=== PATIENT | male | born 1955 | race Caucasian/White ===

== ENCOUNTER 2017-07-26 18:44 | Emergency (ER) | payer MEDICARE, OTHER ==
[~2017-07-26] VITALS: Ht 180.3 cm; Wt 70.3 kg
[~2017-07-26 18:44] MED LIST: ACET-704 PO; ACET325T9 PO; ASPI-630 PO; BACL10TA PO; CHOL10003 PO; DICY10CA53 PO; FERR-26 PO; FLUD0.1T PO; FLUO40CA9 PO; KETO120S TP; LEVO25TA4 PO; MELA3TAB2 PO; MENT118G TP; PANT40TA3 PO; PREG75CA PO; THIA100T22 PO; TRAZ150T49 PO
[2017-07-26] MEDS ORDERED: IV NORMAL SALINE 1000ML BAG 1,000 ML IV SCH (19:26)
--- NOTE | 2017-07-26 19:26 | PHYS DOC ---
Past Medical History Past Medical History: Depression, Diverticulitis, Hypertension, IBS, Other Additional Past Medical Histor: TBI, irritable bowel syndrome, parkinsons Past Surgical History: Cholecystectomy, Other Additional Past Surgical Histo: "Several hernia" umbilical surgeries,back surgery. Alcohol Use: None Drug Use: None Adult General Chief Complaint Chief Complaint: ABDOMINAL PAIN HPI HPI Patient is a 62 year old male who presents with complaint of abdominal pain. Patient states that his pain is been worsening over the past 2 days. The patient states he has had similar pain and was hospitalized approximately 1 month ago for similar symptoms. Patient states that despite GI consultation, the source of the patient's pain was never clearly defined. The patient has been taking hydrocodone for his symptoms with no significant relief. Patient has not followed up with GI since discharge. The patient states that the pain is mainly in his left lower quadrant. Patient also states that he has epigastric pain that radiates up towards his chest but states that this is mild in comparison to his lower abdominal pain. Patient states that this was similar to his previous episode. Patient was evaluated by cardiology at his previous stay and his symptoms were determined to be noncardiac at that time. Patient has had no nausea or vomiting but does admit to diarrhea. Patient rates his pain currently as 8 out of 10. Review of Systems Review of Systems Constitutional: Denies fever or chills [] Eyes: Denies change in visual acuity, redness, or eye pain [] HENT: Denies nasal congestion or sore throat [] Respiratory: Denies cough or shortness of breath [] Cardiovascular: Burning chest pain[] GI: Abdominal pain, diarrhea, denies nausea or vomiting[] : Denies dysuria or hematuria [] Musculoskeletal: Denies back pain or joint pain [] Integument: Denies rash or skin lesions [] Neurologic: Denies headache, focal weakness or sensory changes [] All other systems were reviewed and found to be within normal limits, except as documented in this note. Current Medications Current Medications Current Medications Medications (Trade) Dose Ordered Sig/Darci Start Time Stop Time Status Last Admin Dose Admin Famotidine (Pepcid Vial) 20 mg 1X ONCE 07/26/17 19:30 07/26/17 19:36 DC 07/26/17 20:09 20 MG Fentanyl Citrate (Fentanyl 2ml Vial) 50 mcg PRN Q15MIN PRN 07/26/17 19:30 07/27/17 19:29 07/26/17 20:10 50 MCG Multi-Ingredient Mouthwash/Gargle (Gi Cocktail Single Dose) 15 ml 1X ONCE 07/26/17 19:30 07/26/17 19:36 DC 07/26/17 20:10 15 ML Ondansetron HCl (Zofran) 4 mg 1X ONCE 07/26/17 19:30 07/26/17 19:36 DC 07/26/17 20:09 4 MG Sodium Chloride 1,000 ml @ 1,000 mls/hr Q1H 07/26/17 19:26 07/26/17 20:25 DC 07/26/17 20:11 1,000 MLS/HR Allergies Allergies Allergies Coded Allergies Type Severity Reaction Last Updated Verified gabapentin Allergy Intermediate Unknown. 07/26/17 Yes ibuprofen Allergy Intermediate Unknown. 07/26/17 Yes Physical Exam Physical Exam Constitutional: Alert, afebrile, vital signs stable, appears in mild to moderate discomfort. [] HENT: Normocephalic, atraumatic, bilateral external ears normal, oropharynx moist, no oral exudates, nose normal. [] Eyes: PERRLA, EOMI, conjunctiva normal, no discharge. [] Neck: Normal range of motion, no tenderness, supple, no stridor. [] Cardiovascular:Heart rate regular rhythm, no murmur [] Lungs & Thorax: Bilateral breath sounds clear to auscultation [] Abdomen: Bowel sounds normal, soft, diffusely tender in all 4 quadrants, no masses, no pulsatile masses. [] Skin: Warm, dry, no erythema, no rash. [] Back: No tenderness, no CVA tenderness. [] Extremities: No tenderness, no cyanosis, no clubbing, ROM intact, no edema. [] Neurologic: Alert and oriented X 3, normal motor function, normal sensory function, no focal deficits noted. [] Current Patient Data Vital Signs Vital Signs Date Time Temp Pulse Resp B/P (MAP) Pulse Ox O2 Delivery O2 Flow Rate FiO2 07/26/17 20:10 20 97 Room Air 07/26/17 18:45 99.2 52 152/86 (108) 99.2 Lab Values Laboratory Tests Test 07/26/17 18:54 White Blood Count 5.0 x10^3/uL (4.0-11.0) Red Blood Count 5.42 x10^6/uL (4.30-5.70) Hemoglobin 11.1 g/dL (13.0-17.5) L Hematocrit 35.2 % (39.0-53.0) L Mean Corpuscular Volume 65 fL (79-100) L Mean Corpuscular Hemoglobin 21 pg (25-35) L Mean Corpuscular Hemoglobin Concent 32 g/dL (31-37) Red Cell Distribution Width 16.6 % (11.5-14.5) H Platelet Count 145 x10^3/uL (140-400) Neutrophils (%) (Auto) 48 % (31-73) Lymphocytes (%) (Auto) 36 % (24-48) Monocytes (%) (Auto) 9 % (0-9) Eosinophils (%) (Auto) 6 % (0-3) H Basophils (%) (Auto) 1 % (0-3) Neutrophils # (Auto) 2.4 x10^3uL (1.8-7.7) Lymphocytes # (Auto) 1.8 x10^3/uL (1.0-4.8) Monocytes # (Auto) 0.5 x10^3/uL (0.0-1.1) Eosinophils # (Auto) 0.3 x10^3/uL (0.0-0.7) Basophils # (Auto) 0.1 x10^3/uL (0.0-0.2) Platelet Estimate Adequate (ADEQUATE) Hypochromasia Mod Microcytosis Marked Target Cells Few Sodium Level 142 mmol/L (136-145) Potassium Level 4.1 mmol/L (3.5-5.1) Chloride Level 104 mmol/L (98-107) Carbon Dioxide Level 29 mmol/L (21-32) Anion Gap 9 (6-14) Blood Urea Nitrogen 19 mg/dL (8-26) Creatinine 0.9 mg/dL (0.7-1.3) Estimated GFR (Cockcroft-Gault) 86.1 BUN/Creatinine Ratio 21 (6-20) H Glucose Level 93 mg/dL (70-99) Calcium Level 8.1 mg/dL (8.5-10.1) L Total Bilirubin 0.3 mg/dL (0.2-1.0) Aspartate Amino Transferase (AST) 24 U/L (15-37) Alanine Aminotransferase (ALT) 22 U/L (16-63) Alkaline Phosphatase 60 U/L (46-116) Creatine Kinase 32 U/L (39-308) L Creatine Kinase MB (Mass) < 0.5 ng/mL (0.0-3.6) Creatine Kinase MB Relative Index % (0-4) Troponin I Quantitative < 0.017 ng/mL (0.000-0.055) Total Protein 6.5 g/dL (6.4-8.2) Albumin 3.5 g/dL (3.4-5.0) Albumin/Globulin Ratio 1.2 (1.0-1.7) Lipase 599 U/L (73-393) H Laboratory Tests 07/26/17 18:54 Laboratory Tests 07/26/17 18:54 EKG EKG Interpreted by me: Heart rate 49, sinus rhythm, normal intervals, no acute ST/T- wave abnormalities present[] Radiology/Procedures Radiology/Procedures 3 view acute abdominal series interpreted by me: Nonobstructive bowel gas pattern, no free air under the diaphragm, no pulmonary rates or effusions[] Course & Med Decision Making Course & Med Decision Making Pertinent Labs and Imaging studies reviewed. (See chart for details) Patient's blood work showed a mild elevation in his lipase levels consistent with pancreatitis. Patient states he's had a history of pancreatitis. The patient states that he has not had alcohol in 20 years which is in conflict with previous reports from his previous visit were alcohol was noted to be a contributing factor to the patient's health. Patient's vital signs are stable and patient is in no acute distress. Patient is tolerating oral intake without difficulty. The [facility] Percocet and Zofran. Advise follow-up with primary doctor in the next 5 days for reevaluation. Patient also referred to Dr. Mary for follow-up in one to 2 weeks. Advised return emergency department for any worsening symptoms. Patient voiced understanding and in agreement with treatment plan. Dragon Disclaimer Dragon Disclaimer This electronic medical record was generated, in whole or in part, using a voice recognition dictation system. Departure Departure Impression: Primary Impression: Pancreatitis Disposition: 01 HOME, SELF-CARE Condition: IMPROVED Referrals: MARISA MOODY (PCP) DEBO MARY MD Patient Instructions: Acute Pancreatitis Additional Instructions: Follow-up with your primary doctor in 5 days for reevaluation. Follow-up with Dr. Mary of gastroenterology in 1-2 weeks. Return to the emergency department for any worsening symptoms. Scripts Ondansetron (ZOFRAN ODT) 4 Mg Tab.rapdis 1 TAB SL Q6-8HRS Y for NAUSEA/VOMITING, #15 TAB Prov: DU MARTINEZ MD 07/26/17 Oxycodone/Apap 5-325 (PERCOCET 5-325 MG TABLET) 1 Each Tablet 1-2 TAB PO Q4-6HRS Y for PAIN, #20 TAB Discontinue use of hydrocodone while taking this medication as the 2 medications may interact. Prov: DU MARTINEZ MD 07/26/17 Problem Qualifiers Primary Impression: Pancreatitis Chronicity: acute Pancreatitis type: unspecified pancreatitis type Acute pancreatitis complication: no infection or necrosis Qualified Codes: K85.90 - Acute pancreatitis without necrosis or infection, unspecified DU MARTINEZ MD Jul 26, 2017 19:26
[2017-07-26] MEDS ORDERED: FAMOTIDINE 20 MG/2 ML VIAL IVP ONE (19:30)
[2017-07-26] MEDS ORDERED: ONDANSETRON PF 4 MG/2 ML VIAL. IV ONE (19:30)
[2017-07-26] MEDS ORDERED: LIDO:MAALOX:DONNATAL 1:1:1 15 ML SINGLE DOSE SWSW ONE (19:30)
--- NOTE | 2017-07-26 19:50 | EKG ---
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
[2017-07-26 19:52] LABS: BASO # 0.1 x10^3/uL (0.0-0.2); BASO % 1 % (0-3); EOS % 6 % (0-3); HEMATOCRIT 35.2 % (39.0-53.0); HEMOGLOBIN 11.1 g/dL (13.0-17.5); LYMPH # 1.8 x10^3/uL (1.0-4.8); LYMPH % 36 % (24-48); MEAN CORPUSCULAR HEMOGLOBIN 21 pg (25-35); MEAN CORPUSCULAR HGB CONC 32 g/dL (31-37); MEAN CORPUSCULAR VOLUME 65 fL (79-100); MONO % 9 % (0-9); NEUT % 48 % (31-73); PLATELET COUNT 145 x10^3/uL (140-400); RED BLOOD COUNT 5.42 x10^6/uL (4.30-5.70); RED CELL DISTRIBUTION WIDTH 16.6 % (11.5-14.5)
[2017-07-26] MEDS: fentaNYL PF VIAL 100 MCG/2 ML VIAL IV PRN ×2 (20:10→21:28)
[2017-07-26 20:29] LABS: HYPOCHROMIA MOD; MICROCYTOSIS MARKED; PLT ESTIMATE ADEQUATE (ADEQUATE); TARGET CELLS FEW
[2017-07-26 20:38] LABS: CREATINE KINASE 32 U/L (39-308)
[2017-07-26 20:39] LABS: CKMB MASS < 0.5 ng/mL (0.0-3.6)
[2017-07-26 20:46] LABS: CALCIUM 8.1 mg/dL (8.5-10.1); CREATININE 0.9 mg/dL (0.7-1.3); GFR 86.1; POTASSIUM 4.1 mmol/L (3.5-5.1)
[2017-07-26 20:53] LABS: ALBUMIN 3.5 g/dL (3.4-5.0); ALBUMIN/GLOBULIN RATIO 1.2 (1.0-1.7); TOTAL BILIRUBIN 0.3 mg/dL (0.2-1.0); TOTAL PROTEIN 6.5 g/dL (6.4-8.2)
[2017-07-26] MEDS ORDERED: OXYC-323 PO (21:17)
[2017-07-26] MEDS ORDERED: ONDA4TAB10 SL (21:17)
[2017-07-26 21:30] VITALS: BP 170/74
--- NOTE | 2017-07-27 07:15 | RAD ---
Indication: Left lower quadrant pain radiating to the right abdomen. Time of exam 1951 hours. No free air is identified. There are surgical clips in the right upper quadrant. The bowel gas pattern is nonobstructed. No pathologic calcifications are seen. There are postop changes in the lower lumbar spine. The lungs appear to be clear. No effusion or pneumothorax is seen. Impression: No acute abnormality is detected.
== END 2017-07-26 22:20 | disposition home or self-care (01) ==
LOC: ER 18:44
DX: K85.90 Acute pancreatitis without necrosis or infection, unspecified (principal); I10 Essential (primary) hypertension; K58.0 Irritable bowel syndrome with diarrhea; G20 Parkinson's disease; Z98.890 Other specified postprocedural states; Z88.8 Allergy status to other drugs, medicaments and biological substances
CPT/HCPCS: 36415; 74022; 80053; 82553; 83690; 84484; 85025; 93005; 96361; 96374; 96375; 96376; 99285; J2405; J3010; J7030; S0028

== ENCOUNTER 2017-08-03 12:11 | Emergency (ER) | payer MEDICARE, OTHER ==
[2017-08-03 12:37] LABS: ADD MAN DIFF? NO
[2017-08-03 12:42] LABS: BASO # 0.1 x10^3/uL (0.0-0.2); BASO % 1 % (0-3); EOS % 5 % (0-3); HEMOGLOBIN 11.7 g/dL (13.0-17.5); LYMPH # 1.5 x10^3/uL (1.0-4.8); LYMPH % 24 % (24-48); MEAN CORPUSCULAR HEMOGLOBIN 20 pg (25-35); MEAN CORPUSCULAR HGB CONC 31 g/dL (31-37); MEAN CORPUSCULAR VOLUME 66 fL (79-100); MONO % 7 % (0-9); NEUT % 64 % (31-73); PLATELET COUNT 140 x10^3/uL (140-400); WHITE BLOOD COUNT 6.4 x10^3/uL (4.0-11.0)
[2017-08-03] MEDS: HALOPERIDOL LACTATE 5 MG/ML VIAL. IVP ×2 (12:50→14:41)
[2017-08-03 12:59] LABS: ANION GAP 11 (6-14); BLOOD UREA NITROGEN 23 mg/dL (8-26); BUN/CREATININE RATIO 29 (6-20); CALCIUM 8.6 mg/dL (8.5-10.1); CARBON DIOXIDE 30 mmol/L (21-32); CHLORIDE 101 mmol/L (98-107); CREATININE 0.8 mg/dL (0.7-1.3); GFR 98.6; GLUCOSE 95 mg/dL (70-99); POTASSIUM 4.3 mmol/L (3.5-5.1); SODIUM 142 mmol/L (136-145)
[2017-08-03 13:04] LABS: ALBUMIN 3.5 g/dL (3.4-5.0); ALK PHOS 66 U/L (46-116); ALT (SGPT) 18 U/L (16-63); AST (SGOT) 19 U/L (15-37); TOTAL BILIRUBIN 0.3 mg/dL (0.2-1.0); TOTAL PROTEIN 6.9 g/dL (6.4-8.2)
[2017-08-03 13:45] LABS: BILIRUBIN,URINE NEGATIVE (NEG); GLUCOSE,URINE NEGATIVE (NEG); NITRITE,URINE NEGATIVE (NEG); PROTEIN,URINE NEGATIVE (NEG-TRACE)
[2017-08-03 14:01] LABS: BACTERIA,URINE FEW /HPF (0-FEW); RBC,URINE 0 /HPF (0-2); SQUAMOUS EPITHELIAL CELL,UR FEW /LPF
[2017-08-03] MEDS: IOHEXOL 300 MG/ML 100ML VIAL. IV (14:18)
[2017-08-03 14:24] LABS: ANISOCYTOSIS SLIGHT; HYPOCHROMIA MOD; MICROCYTOSIS MOD; PLT ESTIMATE ADEQUATE (ADEQUATE); POIKILOCYTOSIS SLIGHT; POLYCHROMASIA PRESENT
[2017-08-03 14:25] LABS: OVALOCYTES PRESENT; STOMATOCYTES PRESENT
[2017-08-03] MEDS ORDERED: CONTRAST GIVEN MC (14:30)
[2017-08-03] MEDS: IV NORMAL SALINE 1000ML BAG 1,000 ML IV (14:41)
[2017-08-03] MEDS: KETOROLAC 30 MG/ML INJ. IV (15:16)
[2017-08-03] MEDS: FAMOTIDINE 20 MG/2 ML VIAL IVP (15:16)
== END 2017-08-03 15:25 | disposition home or self-care (01) ==
LOC: ER 12:11
DX: R10.30 Lower abdominal pain, unspecified (principal); R19.7 Diarrhea, unspecified; K58.0 Irritable bowel syndrome with diarrhea; G20 Parkinson's disease; I10 Essential (primary) hypertension; Z90.49 Acquired absence of other specified parts of digestive tract; Z88.6 Allergy status to analgesic agent; Z88.8 Allergy status to other drugs, medicaments and biological substances
CPT/HCPCS: 36415; 74177; 80053; 81001; 83690; 85025; 93005; 96361; 96374; 96375; 96376; 99285-25; J1630; J1885; J7030; Q9967; S0028

== ENCOUNTER 2017-08-30 12:19 | Emergency (ER) | payer MEDICARE, OTHER ==
[2017-08-30 12:41] LABS: ADD MAN DIFF? NO
[2017-08-30 12:48] LABS: BASO % 1 % (0-3); EOS # 0.2 x10^3/uL (0.0-0.7); EOS % 4 % (0-3); HEMATOCRIT 40.5 % (39.0-53.0); HEMOGLOBIN 12.4 g/dL (13.0-17.5); LYMPH # 1.6 x10^3/uL (1.0-4.8); LYMPH % 28 % (24-48); MEAN CORPUSCULAR HEMOGLOBIN 20 pg (25-35); MEAN CORPUSCULAR HGB CONC 31 g/dL (31-37); MEAN CORPUSCULAR VOLUME 66 fL (79-100); MONO # 0.4 x10^3/uL (0.0-1.1); MONO % 7 % (0-9); NEUT # 3.6 x10^3uL (1.8-7.7); NEUT % 61 % (31-73); PLATELET COUNT 179 x10^3/uL (140-400); RED BLOOD COUNT 6.16 x10^6/uL (4.30-5.70); RED CELL DISTRIBUTION WIDTH 16.6 % (11.5-14.5); WHITE BLOOD COUNT 5.9 x10^3/uL (4.0-11.0)
[2017-08-30] MEDS: PANTOPRAZOLE IV PUSH 40 MG VIAL. IVP ×2 (12:54)
[2017-08-30] MEDS: HYDROmorphone 2 MG/ML VIAL IV ×2 (12:55)
[2017-08-30] MEDS: IV NORMAL SALINE 1000ML BAG 1,000 ML IV ×2 (12:55)
[2017-08-30] MEDS: ONDANSETRON PF 4 MG/2 ML VIAL. IV ×2 (12:55)
[2017-08-30 12:57] LABS: ANION GAP 7 (6-14); BLOOD UREA NITROGEN 14 mg/dL (8-26); BUN/CREATININE RATIO 18 (6-20); CARBON DIOXIDE 32 mmol/L (21-32); CHLORIDE 102 mmol/L (98-107); CREATININE 0.8 mg/dL (0.7-1.3); GFR 98.6; GLUCOSE 90 mg/dL (70-99); POTASSIUM 4.2 mmol/L (3.5-5.1); SODIUM 141 mmol/L (136-145)
[2017-08-30 13:03] LABS: ALBUMIN 3.7 g/dL (3.4-5.0); ALBUMIN/GLOBULIN RATIO 1.1 (1.0-1.7); ALK PHOS 70 U/L (46-116); ALT (SGPT) 17 U/L (16-63); AST (SGOT) 16 U/L (15-37); LIPASE 87 U/L (73-393); TOTAL BILIRUBIN 0.4 mg/dL (0.2-1.0); TOTAL PROTEIN 7.1 g/dL (6.4-8.2)
[2017-08-30 13:08] LABS: TROPONINI < 0.017 ng/mL (0.000-0.055)
[2017-08-30 13:22] LABS: ANISOCYTOSIS SLIGHT; HYPOCHROMIA MARKED; MICROCYTOSIS MARKED; OVALOCYTES MOD; PLT ESTIMATE ADEQUATE (ADEQUATE); SPHEROCYTES OCC; TEAR DROP CELLS OCC
[2017-08-30 13:23] LABS: SCHISTOCYTES FEW
[2017-08-30] MEDS: IOHEXOL 300 MG/ML 100ML VIAL. IV ×2 (13:25)
[2017-08-30] MEDS ORDERED: CONTRAST GIVEN MC ×2 (13:30)
== END 2017-08-30 15:50 | disposition home or self-care (01) ==
LOC: ER 12:19
DX: R10.13 Epigastric pain (principal); R07.89 Other chest pain; J44.9 Chronic obstructive pulmonary disease, unspecified; F32.9 Major depressive disorder, single episode, unspecified; E11.9 Type 2 diabetes mellitus without complications; I10 Essential (primary) hypertension; K58.9 Irritable bowel syndrome, unspecified; G20 Parkinson's disease; G89.29 Other chronic pain; Z87.820 Personal history of traumatic brain injury; Z88.8 Allergy status to other drugs, medicaments and biological substances; Z88.6 Allergy status to analgesic agent; Z87.11 Personal history of peptic ulcer disease; Z90.49 Acquired absence of other specified parts of digestive tract
CPT/HCPCS: 36415; 71045; 74177; 80053; 83690; 84484; 85025; 93005; 96361; 96374; 96375; 99285-25; C9113; J1170; J2405; J7030; Q9967

== ENCOUNTER 2017-12-06 18:46 | Inpatient (IN) | payer MEDICARE, MEDICAID, OTHER ==
[2017-12-06 19:36] LABS: ADD MAN DIFF? NO
[2017-12-06 19:38] LABS: BASO % 1 % (0-3); EOS # 0.2 x10^3/uL (0.0-0.7); EOS % 3 % (0-3); HEMATOCRIT 36.4 % (39.0-53.0); HEMOGLOBIN 11.7 g/dL (13.0-17.5); LYMPH # 1.8 x10^3/uL (1.0-4.8); LYMPH % 31 % (24-48); MEAN CORPUSCULAR HEMOGLOBIN 20 pg (25-35); MEAN CORPUSCULAR HGB CONC 32 g/dL (31-37); MEAN CORPUSCULAR VOLUME 64 fL (79-100); MONO # 0.5 x10^3/uL (0.0-1.1); MONO % 9 % (0-9); NEUT # 3.3 x10^3uL (1.8-7.7); NEUT % 57 % (31-73); PLATELET COUNT 150 x10^3/uL (140-400); RED BLOOD COUNT 5.74 x10^6/uL (4.30-5.70); RED CELL DISTRIBUTION WIDTH 16.3 % (11.5-14.5); WHITE BLOOD COUNT 5.8 x10^3/uL (4.0-11.0)
[2017-12-06] MEDS: fentaNYL PF VIAL 100 MCG/2 ML VIAL IV (19:42)
[2017-12-06 19:47] LABS: ANION GAP 7 (6-14); BLOOD UREA NITROGEN 18 mg/dL (8-26); BUN/CREATININE RATIO 20 (6-20); CALCIUM 8.9 mg/dL (8.5-10.1); CARBON DIOXIDE 31 mmol/L (21-32); CHLORIDE 103 mmol/L (98-107); CREATININE 0.9 mg/dL (0.7-1.3); GFR 86.1; GLUCOSE 99 mg/dL (70-99); INR 1.1 (0.8-1.1); POTASSIUM 4.1 mmol/L (3.5-5.1); PROTHROMBIN TIME PATIENT 13.9 SEC (11.7-14.0); SODIUM 141 mmol/L (136-145)
[2017-12-06 19:53] LABS: ALBUMIN 3.5 g/dL (3.4-5.0); ALK PHOS 72 U/L (46-116); ALT (SGPT) 18 U/L (16-63); AST (SGOT) 17 U/L (15-37); TOTAL BILIRUBIN 0.5 mg/dL (0.2-1.0)
[2017-12-06 19:59] LABS: NT-PRO BNP 91 pg/mL (0-124)
[2017-12-06] MEDS: HYDROcodone/APAP 5/325MG 1 TAB TABLET PO (20:23)
[2017-12-06 20:28] LABS: ANISOCYTOSIS SLIGHT; HYPOCHROMIA MARKED; MICROCYTOSIS MARKED; PLT ESTIMATE ADEQUATE (ADEQUATE); POIKILOCYTOSIS SLIGHT
[2017-12-06 20:29] LABS: OVALOCYTES FEW; SCHISTOCYTES FEW; TEAR DROP CELLS OCC
[2017-12-07] MEDS: fentaNYL PF VIAL 100 MCG/2 ML VIAL IV ×6 (00:15→11:23)
[2017-12-07 01:44] LABS: TROPONINI < 0.017 ng/mL (0.000-0.055)
[2017-12-07] MEDS ORDERED: ONDANSETRON ODT 4 MG TAB.RAPDIS. PO ×2 (10:00→12:45)
[2017-12-07 10:01] LABS: THYROID STIM HORMONE (TSH) 1.212 uIU/mL (0.358-3.74)
[2017-12-07 10:46] LABS: TROPONINI < 0.017 ng/mL (0.000-0.055)
[2017-12-07] MEDS: ONDANSETRON PF 4 MG/2 ML VIAL. IV (11:23)
[2017-12-07] MEDS: ACETAMINOPHEN 500 MG TABLET PO (11:27)
[2017-12-07] MEDS: ASPIRIN ENTERIC COATED 81 MG TABLET.DR. PO (11:27)
[2017-12-07] MEDS ORDERED: ACETAMINOPHEN 325 MG TABLET. PO (12:45)
[2017-12-07] MEDS ORDERED: NITROGLYCERIN SUBLINGUAL 0.4 MG BOTTLE OF 25. SL (12:45)
[2017-12-07] MEDS: ASPIRIN CHEWABLE 81 MG TABLET. PO (14:00)
[2017-12-07] MEDS: KETOCONAZOLE 2% SHAMPOO 120ML BOTTLE. TP (14:00)
[2017-12-07] MEDS: GADOBUTROL 7.5 MMOL/7.5 ML VIAL IV (14:15)
[2017-12-07] MEDS: DICYCLOMINE HCL 10 MG CAPSULE PO ×2 (14:39→20:48)
[2017-12-07] MEDS: THIAMINE 100 MG TABLET. PO (14:39)
[2017-12-07] MEDS: FLUDROCORTISONE 0.1 MG TABLET PO (14:39)
[2017-12-07] MEDS: CHOLECALCIFEROL (VITAMIN D3) 1,000 UNIT TABLET PO (14:39)
[2017-12-07] MEDS: FLUoxetine HCL 20 MG CAPSULE PO (14:40)
[2017-12-07] MEDS: BACLOFEN 10 MG TABLET. PO ×2 (14:43→20:47)
[2017-12-07] MEDS: oxyCODONE/APAP 5/325 1 TAB TABLET PO ×2 (14:46→20:47)
[2017-12-07] MEDS: PANTOPRAZOLE 40 MG TABLET.DR. PO (16:36)
[2017-12-07 20:10] LABS: MRSA BY PCR Negative (Negative)
[2017-12-07] MEDS: ATORVASTATIN CALCIUM 10 MG TABLET. PO (20:47)
[2017-12-07] MEDS: PREGABALIN 75 MG CAPSULE PO (20:47)
[2017-12-07] MEDS: traZODone 50 MG TABLET. PO (20:48)
[2017-12-07] MEDS: METHYL SALICYLATE/MENTHOL TOPICAL OINTMENT 29GM TUBE. TP (20:51)
[2017-12-07] MEDS: FLUPHENAZINE 2.5 MG PO (20:54)
[2017-12-07] MEDS ORDERED: NON FORMULARY ITEM (Melatonin 5 MG) PO (21:00)
[2017-12-07] MEDS ORDERED: FLUPHENAZINE PO (21:00)
[2017-12-07] MEDS ORDERED: FLUPHENAZINE 2.5 MG PO (21:00)
[2017-12-07] MEDS ORDERED: FLUPHENAZINE HCL 2.5 MG TABLET. PO (21:00)
[2017-12-08] MEDS: oxyCODONE/APAP 5/325 1 TAB TABLET PO (04:53)
[2017-12-08] MEDS: fentaNYL PF VIAL 100 MCG/2 ML VIAL IV ×5 (05:46→20:29)
[2017-12-08] MEDS: ASPIRIN CHEWABLE 81 MG TABLET. PO (09:00)
[2017-12-08] MEDS: METHYL SALICYLATE/MENTHOL TOPICAL OINTMENT 29GM TUBE. TP ×4 (09:00→20:32)
[2017-12-08] MEDS ORDERED: FLUPHENAZINE HCL 2.5 MG TABLET. PO ×2 (09:00)
[2017-12-08] MEDS: KETOCONAZOLE 2% SHAMPOO 120ML BOTTLE. TP (09:00)
[2017-12-08] MEDS: FLUoxetine HCL 20 MG CAPSULE PO (10:22)
[2017-12-08] MEDS: FLUDROCORTISONE 0.1 MG TABLET PO (10:22)
[2017-12-08] MEDS: ASPIRIN ENTERIC COATED 81 MG TABLET.DR. PO (10:23)
[2017-12-08] MEDS: BACLOFEN 10 MG TABLET. PO ×3 (10:23→20:31)
[2017-12-08] MEDS: PREGABALIN 75 MG CAPSULE PO ×2 (10:23→20:32)
[2017-12-08] MEDS: THIAMINE 100 MG TABLET. PO (10:23)
[2017-12-08] MEDS: LEVOTHYROXINE 25 MCG TABLET. PO (10:24)
[2017-12-08] MEDS: DICYCLOMINE HCL 10 MG CAPSULE PO ×3 (10:24→20:31)
[2017-12-08] MEDS: PANTOPRAZOLE 40 MG TABLET.DR. PO (10:24)
[2017-12-08] MEDS: FERROUS SULFATE 325 MG TABLET. PO (10:24)
[2017-12-08] MEDS: CHOLECALCIFEROL (VITAMIN D3) 1,000 UNIT TABLET PO (10:24)
[2017-12-08] MEDS: FLUPHENAZINE 2.5 MG PO ×2 (11:56→20:31)
[2017-12-08 14:09] LABS: ANION GAP 6 (6-14); BLOOD UREA NITROGEN 23 mg/dL (8-26); CALCIUM 8.9 mg/dL (8.5-10.1); CARBON DIOXIDE 32 mmol/L (21-32); CHLORIDE 101 mmol/L (98-107); GFR 76.2; GLUCOSE 171 mg/dL (70-99); POTASSIUM 4.2 mmol/L (3.5-5.1); SODIUM 139 mmol/L (136-145)
[2017-12-08 14:18] LABS: TROPONINI < 0.017 ng/mL (0.000-0.055)
[2017-12-08] MEDS: traZODone 50 MG TABLET. PO (20:31)
[2017-12-08] MEDS: ATORVASTATIN CALCIUM 10 MG TABLET. PO (20:32)
[2017-12-09] MEDS: fentaNYL PF VIAL 100 MCG/2 ML VIAL IV ×4 (04:44→20:49)
[2017-12-09] MEDS: LEVOTHYROXINE 25 MCG TABLET. PO (07:20)
[2017-12-09] MEDS: FLUDROCORTISONE 0.1 MG TABLET PO (08:16)
[2017-12-09] MEDS: CHOLECALCIFEROL (VITAMIN D3) 1,000 UNIT TABLET PO (08:17)
[2017-12-09] MEDS: DICYCLOMINE HCL 10 MG CAPSULE PO ×3 (08:17→20:22)
[2017-12-09] MEDS: FLUoxetine HCL 20 MG CAPSULE PO (08:17)
[2017-12-09] MEDS: ASPIRIN ENTERIC COATED 81 MG TABLET.DR. PO (08:17)
[2017-12-09] MEDS: PANTOPRAZOLE 40 MG TABLET.DR. PO (08:17)
[2017-12-09] MEDS: BACLOFEN 10 MG TABLET. PO ×3 (08:17→20:22)
[2017-12-09] MEDS: FERROUS SULFATE 325 MG TABLET. PO (08:17)
[2017-12-09] MEDS: THIAMINE 100 MG TABLET. PO (08:17)
[2017-12-09] MEDS: PREGABALIN 75 MG CAPSULE PO ×2 (08:18→20:21)
[2017-12-09] MEDS: oxyCODONE/APAP 5/325 1 TAB TABLET PO ×2 (08:20→20:21)
[2017-12-09] MEDS: METHYL SALICYLATE/MENTHOL TOPICAL OINTMENT 29GM TUBE. TP ×2 (08:21→20:51)
[2017-12-09] MEDS: FLUPHENAZINE 2.5 MG PO ×2 (08:50→20:22)
[2017-12-09] MEDS ORDERED: FLUPHENAZINE HCL 2.5 MG TABLET. PO ×2 (09:00)
[2017-12-09] MEDS: KETOCONAZOLE 2% SHAMPOO 120ML BOTTLE. TP (09:00)
[2017-12-09 10:33] LABS: FREE T4 1.13 ng/dL (0.76-1.46)
[2017-12-09 11:12] LABS: % SAT IRON 22 % (15-34); IRON,SERUM 61 ug/dL (65-175)
[2017-12-09 11:26] LABS: FERRITIN 289 ng/mL (26-388)
[2017-12-09] MEDS: IOHEXOL 300 MG/ML 100ML VIAL. IV (16:45)
[2017-12-09] MEDS ORDERED: CONTRAST GIVEN MC (16:45)
[2017-12-09] MEDS: ATORVASTATIN CALCIUM 10 MG TABLET. PO (20:20)
[2017-12-09] MEDS: traZODone 50 MG TABLET. PO (20:21)
[2017-12-10] MEDS: fentaNYL PF VIAL 100 MCG/2 ML VIAL IV ×6 (01:04→21:26)
[2017-12-10] MEDS: PANTOPRAZOLE 40 MG TABLET.DR. PO (07:37)
[2017-12-10] MEDS: LEVOTHYROXINE 25 MCG TABLET. PO (07:38)
[2017-12-10] MEDS: CHOLECALCIFEROL (VITAMIN D3) 1,000 UNIT TABLET PO (08:49)
[2017-12-10] MEDS: FLUDROCORTISONE 0.1 MG TABLET PO (08:49)
[2017-12-10] MEDS: THIAMINE 100 MG TABLET. PO (08:49)
[2017-12-10] MEDS: FLUoxetine HCL 20 MG CAPSULE PO (08:49)
[2017-12-10] MEDS: FERROUS SULFATE 325 MG TABLET. PO (08:50)
[2017-12-10] MEDS: BACLOFEN 10 MG TABLET. PO ×3 (08:50→21:24)
[2017-12-10] MEDS: ASPIRIN ENTERIC COATED 81 MG TABLET.DR. PO (08:50)
[2017-12-10] MEDS: PREGABALIN 75 MG CAPSULE PO ×2 (08:51→21:25)
[2017-12-10] MEDS: DICYCLOMINE HCL 10 MG CAPSULE PO ×3 (08:51→21:23)
[2017-12-10] MEDS: oxyCODONE/APAP 5/325 1 TAB TABLET PO ×2 (08:52→21:25)
[2017-12-10] MEDS: FLUPHENAZINE 2.5 MG PO (08:54)
[2017-12-10] MEDS: METHYL SALICYLATE/MENTHOL TOPICAL OINTMENT 29GM TUBE. TP ×2 (08:59→21:00)
[2017-12-10] MEDS ORDERED: FLUPHENAZINE HCL 2.5 MG TABLET. PO (09:00)
[2017-12-10] MEDS ORDERED: tiZANidine 4 MG TABLET. PO (09:00)
[2017-12-10] MEDS: KETOCONAZOLE 2% SHAMPOO 120ML BOTTLE. TP (09:00)
[2017-12-10] MEDS: IOHEXOL 240 MG/ML 50ML VIAL. PO (09:30)
[2017-12-10] MEDS: IOHEXOL 300 MG/ML 100ML VIAL. IV (09:30)
[2017-12-10] MEDS ORDERED: CONTRAST GIVEN MC (09:45)
[2017-12-10 10:05] LABS: ADD MAN DIFF? NO
[2017-12-10 10:10] LABS: BASO % 1 % (0-3); EOS # 0.3 x10^3/uL (0.0-0.7); EOS % 5 % (0-3); HEMATOCRIT 36.3 % (39.0-53.0); HEMOGLOBIN 11.4 g/dL (13.0-17.5); LYMPH # 1.8 x10^3/uL (1.0-4.8); LYMPH % 31 % (24-48); MEAN CORPUSCULAR HEMOGLOBIN 20 pg (25-35); MEAN CORPUSCULAR HGB CONC 32 g/dL (31-37); MEAN CORPUSCULAR VOLUME 64 fL (79-100); MONO # 0.5 x10^3/uL (0.0-1.1); MONO % 9 % (0-9); NEUT # 3.2 x10^3uL (1.8-7.7); NEUT % 55 % (31-73); PLATELET COUNT 138 x10^3/uL (140-400); RED BLOOD COUNT 5.65 x10^6/uL (4.30-5.70); RED CELL DISTRIBUTION WIDTH 16.6 % (11.5-14.5); WHITE BLOOD COUNT 5.7 x10^3/uL (4.0-11.0)
[2017-12-10 11:37] LABS: SEDIMENTATION RATE 9 (0-15)
[2017-12-10] MEDS ORDERED: LIDOCAINE WITH 8.4% SOD BICARB 3 ML DISP.SYRIN. (13:51)
[2017-12-10] MEDS: LIDOCAINE WITH 8.4% SOD BICARB 3 ML DISP.SYRIN. INJ (14:00)
[2017-12-10] MEDS: traZODone 50 MG TABLET. PO (21:23)
[2017-12-10] MEDS: ATORVASTATIN CALCIUM 10 MG TABLET. PO (21:24)
[2017-12-10] MEDS: FLUPHENAZINE HCL 2.5 MG TABLET. PO (21:26)
[2017-12-11] MEDS: METHYL SALICYLATE/MENTHOL TOPICAL OINTMENT 29GM TUBE. TP ×2 (07:28→21:00)
[2017-12-11] MEDS: KETOCONAZOLE 2% SHAMPOO 120ML BOTTLE. TP (07:28)
[2017-12-11] MEDS: FLUDROCORTISONE 0.1 MG TABLET PO (08:00)
[2017-12-11] MEDS: ASPIRIN ENTERIC COATED 81 MG TABLET.DR. PO (08:00)
[2017-12-11] MEDS: FLUoxetine HCL 20 MG CAPSULE PO (08:00)
[2017-12-11] MEDS: CHOLECALCIFEROL (VITAMIN D3) 1,000 UNIT TABLET PO (08:00)
[2017-12-11] MEDS: PANTOPRAZOLE 40 MG TABLET.DR. PO (08:01)
[2017-12-11] MEDS: FLUPHENAZINE HCL 2.5 MG TABLET. PO ×2 (08:01→20:46)
[2017-12-11] MEDS: THIAMINE 100 MG TABLET. PO (08:01)
[2017-12-11] MEDS: oxyCODONE/APAP 5/325 1 TAB TABLET PO ×2 (08:01→19:35)
[2017-12-11] MEDS: PREGABALIN 75 MG CAPSULE PO ×2 (08:01→20:45)
[2017-12-11] MEDS: FERROUS SULFATE 325 MG TABLET. PO (08:01)
[2017-12-11] MEDS: LEVOTHYROXINE 25 MCG TABLET. PO (08:01)
[2017-12-11] MEDS: DICYCLOMINE HCL 10 MG CAPSULE PO ×3 (08:02→20:46)
[2017-12-11] MEDS: BACLOFEN 10 MG TABLET. PO ×3 (08:02→20:45)
[2017-12-11] MEDS: fentaNYL PF VIAL 100 MCG/2 ML VIAL IV ×3 (08:15→19:42)
[2017-12-11] MEDS: traZODone 50 MG TABLET. PO (20:44)
[2017-12-11] MEDS: ATORVASTATIN CALCIUM 10 MG TABLET. PO (20:45)
[2017-12-12] MEDS: fentaNYL PF VIAL 100 MCG/2 ML VIAL IV ×6 (01:27→22:07)
[2017-12-12] MEDS: LEVOTHYROXINE 25 MCG TABLET. PO ×2 (07:56→19:12)
[2017-12-12] MEDS: PANTOPRAZOLE 40 MG TABLET.DR. PO ×2 (07:56→19:12)
[2017-12-12] MEDS: KETOCONAZOLE 2% SHAMPOO 120ML BOTTLE. TP (09:00)
[2017-12-12] MEDS: ASPIRIN ENTERIC COATED 81 MG TABLET.DR. PO (09:27)
[2017-12-12] MEDS: FLUoxetine HCL 20 MG CAPSULE PO (09:27)
[2017-12-12] MEDS: oxyCODONE/APAP 5/325 1 TAB TABLET PO ×2 (09:27→19:49)
[2017-12-12] MEDS: FLUDROCORTISONE 0.1 MG TABLET PO (09:27)
[2017-12-12] MEDS: FERROUS SULFATE 325 MG TABLET. PO (09:27)
[2017-12-12] MEDS: THIAMINE 100 MG TABLET. PO (09:28)
[2017-12-12] MEDS: CHOLECALCIFEROL (VITAMIN D3) 1,000 UNIT TABLET PO (09:28)
[2017-12-12] MEDS: BACLOFEN 10 MG TABLET. PO ×3 (09:28→19:48)
[2017-12-12] MEDS: FLUPHENAZINE HCL 2.5 MG TABLET. PO ×2 (09:28→19:48)
[2017-12-12] MEDS: DICYCLOMINE HCL 10 MG CAPSULE PO ×3 (09:28→19:48)
[2017-12-12] MEDS: PREGABALIN 75 MG CAPSULE PO ×2 (09:28→19:48)
[2017-12-12] MEDS: METHYL SALICYLATE/MENTHOL TOPICAL OINTMENT 29GM TUBE. TP ×2 (09:29→19:49)
[2017-12-12] MEDS: ATORVASTATIN CALCIUM 10 MG TABLET. PO (19:48)
[2017-12-12] MEDS: traZODone 50 MG TABLET. PO (19:49)
[2017-12-13] MEDS: fentaNYL PF VIAL 100 MCG/2 ML VIAL IV ×7 (03:24→23:25)
[2017-12-13] MEDS ORDERED: MORPHINE SULFATE 4 MG/ML DISP.SYRIN. IV (07:00)
[2017-12-13] MEDS ORDERED: ONDANSETRON PF 4 MG/2 ML VIAL. IV (07:00)
[2017-12-13] MEDS ORDERED: LIDOCAINE 1% PF 2 ML VIAL. ID (07:00)
[2017-12-13] MEDS ORDERED: fentaNYL PF VIAL 100 MCG/2 ML VIAL IV (07:00)
[2017-12-13] MEDS: FERROUS SULFATE 325 MG TABLET. PO (08:00)
[2017-12-13] MEDS: ASPIRIN ENTERIC COATED 81 MG TABLET.DR. PO (08:00)
[2017-12-13] MEDS: FLUoxetine HCL 20 MG CAPSULE PO (09:00)
[2017-12-13] MEDS: FLUDROCORTISONE 0.1 MG TABLET PO (09:00)
[2017-12-13] MEDS: METHYL SALICYLATE/MENTHOL TOPICAL OINTMENT 29GM TUBE. TP ×2 (09:00→20:25)
[2017-12-13] MEDS: PREGABALIN 75 MG CAPSULE PO ×2 (09:00→20:21)
[2017-12-13] MEDS: CHOLECALCIFEROL (VITAMIN D3) 1,000 UNIT TABLET PO (09:00)
[2017-12-13] MEDS: KETOCONAZOLE 2% SHAMPOO 120ML BOTTLE. TP (09:00)
[2017-12-13] MEDS: BACLOFEN 10 MG TABLET. PO ×3 (09:00→20:20)
[2017-12-13] MEDS: DICYCLOMINE HCL 10 MG CAPSULE PO ×3 (09:00→20:21)
[2017-12-13] MEDS: FLUPHENAZINE HCL 2.5 MG TABLET. PO ×2 (09:00→20:21)
[2017-12-13] MEDS: THIAMINE 100 MG TABLET. PO (09:00)
[2017-12-13] MEDS ORDERED: PROPOFOL 20 ML IV (10:18)
[2017-12-13] MEDS ORDERED: FAMOTIDINE 20 MG/2 ML VIAL (10:18)
[2017-12-13] MEDS ORDERED: DEXAMETHASONE SOD PHOS 20 MG/5 ML VIAL. (10:18)
[2017-12-13] MEDS ORDERED: LIDOCAINE 2% PF Vial for OR 5 ML VIAL. (10:18)
[2017-12-13] MEDS ORDERED: ROCURONIUM 50 MG/5 ML VIAL. (10:19)
[2017-12-13] MEDS ORDERED: MIDAZOLAM HCL/PF 2 MG/2 ML VIAL. (10:19)
[2017-12-13] MEDS ORDERED: ONDANSETRON PF 4 MG/2 ML VIAL. (10:19)
[2017-12-13] MEDS ORDERED: SUCCINYLCHOLINE 200 MG/10 ML VIAL. (10:19)
[2017-12-13] MEDS ORDERED: fentaNYL PF VIAL 100 MCG/2 ML VIAL (10:19)
[2017-12-13] MEDS: IV RINGERS,LACTATED 1000ML 1,000 ML IV (11:00)
[2017-12-13] MEDS ORDERED: DESFLURANE 61 TO 120 MINUTES IH (12:10)
[2017-12-13] MEDS: PROCHLORPERAZINE 10 MG/2 ML VIAL. IV (12:55)
[2017-12-13] MEDS: traZODone 50 MG TABLET. PO (20:20)
[2017-12-13] MEDS: ATORVASTATIN CALCIUM 10 MG TABLET. PO (20:21)
[2017-12-14] MEDS: fentaNYL PF VIAL 100 MCG/2 ML VIAL IV ×3 (02:08→11:03)
[2017-12-14] MEDS: DICYCLOMINE HCL 10 MG CAPSULE PO ×2 (08:01→11:52)
[2017-12-14] MEDS: PREGABALIN 75 MG CAPSULE PO (08:01)
[2017-12-14] MEDS: FERROUS SULFATE 325 MG TABLET. PO (08:02)
[2017-12-14] MEDS: LEVOTHYROXINE 25 MCG TABLET. PO (08:02)
[2017-12-14] MEDS: BACLOFEN 10 MG TABLET. PO ×2 (08:02→11:52)
[2017-12-14] MEDS: FLUDROCORTISONE 0.1 MG TABLET PO (08:02)
[2017-12-14] MEDS: CHOLECALCIFEROL (VITAMIN D3) 1,000 UNIT TABLET PO (08:02)
[2017-12-14] MEDS: FLUoxetine HCL 20 MG CAPSULE PO (08:02)
[2017-12-14] MEDS: PANTOPRAZOLE 40 MG TABLET.DR. PO (08:02)
[2017-12-14] MEDS: FLUPHENAZINE HCL 2.5 MG TABLET. PO (08:02)
[2017-12-14] MEDS: ASPIRIN ENTERIC COATED 81 MG TABLET.DR. PO (08:02)
[2017-12-14] MEDS: THIAMINE 100 MG TABLET. PO (08:02)
[2017-12-14] MEDS: KETOCONAZOLE 2% SHAMPOO 120ML BOTTLE. TP (08:03)
[2017-12-14] MEDS: METHYL SALICYLATE/MENTHOL TOPICAL OINTMENT 29GM TUBE. TP (08:03)
== END 2017-12-14 13:30 | disposition home or self-care (01) | DRG 825 ==
LOC: ER 18:46 → 6 SOUTH 21:18
PROC: 0CTPXZZ Resection of Tonsils, External Approach (ICD-10-PCS; principal; 2017-12-13 11:15)
PROC: 0CBM8ZX Excision of Pharynx, Via Natural or Artificial Opening Endoscopic, Diagnostic (ICD-10-PCS; 2017-12-13 11:15)
PROC: 07BH3ZX Excision of Right Inguinal Lymphatic, Percutaneous Approach, Diagnostic (ICD-10-PCS; 2017-12-13 11:18)
DX: C77.0 Secondary and unspecified malignant neoplasm of lymph nodes of head, face and neck (principal); E11.51 Type 2 diabetes mellitus with diabetic peripheral angiopathy without gangrene; G20 Parkinson's disease; I27.20 Pulmonary hypertension, unspecified; R13.10 Dysphagia, unspecified; M94.0 Chondrocostal junction syndrome [Tietze]; C80.1 Malignant (primary) neoplasm, unspecified; B19.20 Unspecified viral hepatitis C without hepatic coma; D50.9 Iron deficiency anemia, unspecified; R59.9 Enlarged lymph nodes, unspecified; E03.9 Hypothyroidism, unspecified; F32.9 Major depressive disorder, single episode, unspecified; G89.29 Other chronic pain; I10 Essential (primary) hypertension; K21.9 Gastro-esophageal reflux disease without esophagitis; M19.90 Unspecified osteoarthritis, unspecified site; N20.0 Calculus of kidney; Z80.1 Family history of malignant neoplasm of trachea, bronchus and lung; Z82.49 Family history of ischemic heart disease and other diseases of the circulatory system; Z85.828 Personal history of other malignant neoplasm of skin; Z87.820 Personal history of traumatic brain injury; Z87.891 Personal history of nicotine dependence; Z90.49 Acquired absence of other specified parts of digestive tract; Z88.8 Allergy status to other drugs, medicaments and biological substances; I73.9 Peripheral vascular disease, unspecified; K57.90 Diverticulosis of intestine, part unspecified, without perforation or abscess without bleeding
CPT/HCPCS: 36415; 38505; 70491; 71045; 71260; 72156; 74177; 78306; 80048; 80053; 82728; 83540; 83550; 83735; 83880; 84439; 84443; 84481; 84484; 85025; 85379; 85610; 85651; 87641; 88184; 88185; 88305; 93005; 96374; 97161-GP; 97165-GO; 99285; 99285-25; A7015; A9503; A9585; J0330; J0690; J0780; J1100; J2250; J2405; J2704; J3010; J7120; Q9967; S0028

== ENCOUNTER 2017-12-17 09:44 | Emergency (ER) | payer MEDICARE, MEDICAID ==
[2017-12-17] MEDS: MORPHINE SULFATE 4 MG/ML DISP.SYRIN. IV ×2 (10:18→11:23)
[2017-12-17 10:30] LABS: ADD MAN DIFF? NO
[2017-12-17 10:41] LABS: BASO % 1 % (0-3); EOS # 0.2 x10^3/uL (0.0-0.7); EOS % 3 % (0-3); HEMATOCRIT 36.6 % (39.0-53.0); HEMOGLOBIN 11.5 g/dL (13.0-17.5); LYMPH # 1.1 x10^3/uL (1.0-4.8); LYMPH % 19 % (24-48); MEAN CORPUSCULAR HEMOGLOBIN 20 pg (25-35); MEAN CORPUSCULAR HGB CONC 31 g/dL (31-37); MEAN CORPUSCULAR VOLUME 64 fL (79-100); MONO # 0.5 x10^3/uL (0.0-1.1); MONO % 8 % (0-9); NEUT # 4.1 x10^3uL (1.8-7.7); NEUT % 69 % (31-73); PLATELET COUNT 169 x10^3/uL (140-400); RED BLOOD COUNT 5.74 x10^6/uL (4.30-5.70); RED CELL DISTRIBUTION WIDTH 16.2 % (11.5-14.5)
[2017-12-17 10:48] LABS: ANION GAP 8 (6-14); BLOOD UREA NITROGEN 14 mg/dL (8-26); BUN/CREATININE RATIO 18 (6-20); CARBON DIOXIDE 30 mmol/L (21-32); CHLORIDE 104 mmol/L (98-107); CREATININE 0.8 mg/dL (0.7-1.3); GFR 98.6; GLUCOSE 139 mg/dL (70-99); POTASSIUM 3.8 mmol/L (3.5-5.1); SODIUM 142 mmol/L (136-145)
[2017-12-17 10:54] LABS: ALBUMIN 3.4 g/dL (3.4-5.0); ALBUMIN/GLOBULIN RATIO 0.9 (1.0-1.7); ALK PHOS 87 U/L (46-116); ALT (SGPT) 23 U/L (16-63); AST (SGOT) 17 U/L (15-37); TOTAL BILIRUBIN 0.6 mg/dL (0.2-1.0); TOTAL PROTEIN 7.2 g/dL (6.4-8.2)
[2017-12-17 11:02] LABS: CKMB MASS < 0.5 ng/mL (0.0-3.6); CREATINE KINASE 28 U/L (39-308)
[2017-12-17 13:06] LABS: ANISOCYTOSIS SLIGHT; HYPOCHROMIA MARKED; MICROCYTOSIS MARKED; OVALOCYTES FEW; PLT ESTIMATE ADEQUATE (ADEQUATE); POLYCHROMASIA SLIGHT; TEAR DROP CELLS FEW
[2017-12-17] MEDS: ONDANSETRON ODT 4 MG TAB.RAPDIS. PO (13:25)
[2017-12-17] MEDS: fentaNYL PF VIAL 100 MCG/2 ML VIAL IV (13:27)
== END 2017-12-17 14:43 | disposition home or self-care (01) ==
LOC: ER 09:44
DX: G89.18 Other acute postprocedural pain (principal); R07.89 Other chest pain; G20 Parkinson's disease; Z90.49 Acquired absence of other specified parts of digestive tract; Z88.8 Allergy status to other drugs, medicaments and biological substances
CPT/HCPCS: 36415; 71046; 80053; 82553; 85025; 93005; 96374; 96375; 96376; 99285-25; J2270; J3010; Q0162

== ENCOUNTER 2018-02-24 20:32 | Inpatient (IN) | payer MEDICARE, MEDICAID ==
[2018-02-24 21:17] LABS: ADD MAN DIFF? NO
[2018-02-24] MEDS: ASPIRIN CHEWABLE 81 MG TABLET. PO (21:19)
[2018-02-24 21:20] LABS: BASO # 0.1 x10^3/uL (0.0-0.2); BASO % 1 % (0-3); EOS # 0.2 x10^3/uL (0.0-0.7); EOS % 5 % (0-3); HEMATOCRIT 35.8 % (39.0-53.0); HEMOGLOBIN 11.4 g/dL (13.0-17.5); LYMPH % 22 % (24-48); MEAN CORPUSCULAR HEMOGLOBIN 20 pg (25-35); MEAN CORPUSCULAR HGB CONC 32 g/dL (31-37); MEAN CORPUSCULAR VOLUME 63 fL (79-100); MONO # 0.5 x10^3/uL (0.0-1.1); MONO % 11 % (0-9); NEUT # 2.8 x10^3uL (1.8-7.7); NEUT % 62 % (31-73); PLATELET COUNT 180 x10^3/uL (140-400); RED BLOOD COUNT 5.65 x10^6/uL (4.30-5.70); RED CELL DISTRIBUTION WIDTH 18.2 % (11.5-14.5); WHITE BLOOD COUNT 4.5 x10^3/uL (4.0-11.0)
[2018-02-24 21:29] LABS: INR 1.1 (0.8-1.1); PROTHROMBIN TIME PATIENT 13.4 SEC (11.7-14.0)
[2018-02-24 21:30] LABS: ANION GAP 6 (6-14); BLOOD UREA NITROGEN 20 mg/dL (8-26); BUN/CREATININE RATIO 20 (6-20); CALCIUM 9.1 mg/dL (8.5-10.1); CARBON DIOXIDE 34 mmol/L (21-32); CHLORIDE 100 mmol/L (98-107); GFR 76.2; GLUCOSE 130 mg/dL (70-99); POTASSIUM 4.3 mmol/L (3.5-5.1); SODIUM 140 mmol/L (136-145)
[2018-02-24 21:36] LABS: ALBUMIN 3.5 g/dL (3.4-5.0); ALBUMIN/GLOBULIN RATIO 1.1 (1.0-1.7); ALK PHOS 103 U/L (46-116); ALT (SGPT) 60 U/L (16-63); AST (SGOT) 49 U/L (15-37); LIPASE 210 U/L (73-393); TOTAL BILIRUBIN 0.3 mg/dL (0.2-1.0); TOTAL PROTEIN 6.8 g/dL (6.4-8.2)
[2018-02-24 21:39] LABS: TROPONINI < 0.017 ng/mL (0.000-0.055)
[2018-02-24 21:44] LABS: NT-PRO BNP 165 pg/mL (0-124)
[2018-02-24 21:44] LABS: CKMB MASS 0.5 ng/mL (0.0-3.6); CREATINE KINASE 33 U/L (39-308)
[2018-02-24 21:51] LABS: PLT ESTIMATE ADEQUATE (ADEQUATE)
[2018-02-24] MEDS: fentaNYL PF VIAL 100 MCG/2 ML VIAL IV ×2 (21:51→22:40)
[2018-02-24 21:52] LABS: ANISOCYTOSIS SLIGHT; HYPOCHROMIA MARKED; MICROCYTOSIS MARKED; OVALOCYTES FEW; POIKILOCYTOSIS SLIGHT
[2018-02-24] MEDS ORDERED: CONTRAST GIVEN. MC (23:15)
[2018-02-24] MEDS: IOHEXOL 300 MG/ML 100ML VIAL. IV (23:27)
[2018-02-24] MEDS: LIDO:MAALOX 1:1 20 ML SINGLE DOSE. PO (23:42)
[2018-02-24] MEDS: IV NORMAL SALINE 1000ML BAG 1,000 ML IV (23:43)
[2018-02-25] MEDS ORDERED: ONDANSETRON PF 4 MG/2 ML VIAL. IV (00:30)
[2018-02-25] MEDS: MORPHINE SULFATE 4 MG/ML DISP.SYRIN. IV ×12 (00:49→22:25)
[2018-02-25 01:02] LABS: TROPONINI < 0.017 ng/mL (0.000-0.055)
[2018-02-25 01:30] LABS: BILIRUBIN,URINE NEGATIVE (NEG); CLARITY,URINE CLEAR; COLOR,URINE YELLOW; GLUCOSE,URINE NEGATIVE (NEG); NITRITE,URINE NEGATIVE (NEG); PROTEIN,URINE NEGATIVE (NEG-TRACE); UROBILINOGEN,URINE 0.2 mg/dL (0.2 mg/dL)
[2018-02-25 02:05] LABS: BACTERIA,URINE 0 /HPF (0-FEW); RBC,URINE 0 /HPF (0-2); SQUAMOUS EPITHELIAL CELL,UR OCC /LPF; WBC,URINE OCC /HPF (0-4)
[2018-02-25 08:13] LABS: TROPONINI < 0.017 ng/mL (0.000-0.055)
[2018-02-25] MEDS ORDERED: MORPHINE SULFATE 10 MG/ML VIAL. IV (14:15)
[2018-02-25] MEDS: fentaNYL 50MCG/HR PATCH 1 PATCH PATCH.TD72 TD (16:15)
[2018-02-25] MEDS: oxyCODONE/APAP 10/325 1 TAB TABLET PO (19:12)
[2018-02-25 20:15] LABS: MRSA BY PCR Positive (Negative)
[2018-02-26] MEDS: oxyCODONE/APAP 10/325 1 TAB TABLET PO ×2 (00:31→08:22)
[2018-02-26] MEDS: MORPHINE SULFATE 4 MG/ML DISP.SYRIN. IV ×4 (00:31→09:09)
[2018-02-26] MEDS: ONDANSETRON PF 4 MG/2 ML VIAL. IV (09:43)
[2018-02-26] MEDS: SUCRALFATE 1 GM/10 ML ORAL.SUSP. PO (12:08)
[2018-02-26] MEDS: MORPHINE SULFATE 10 MG/ML VIAL. IV ×2 (13:09→23:01)
[2018-02-27] MEDS ORDERED: MORPHINE SULFATE 10 MG/ML VIAL. IV ×2 (08:45→09:00)
[2018-02-27] MEDS: MORPHINE SULFATE 4 MG/ML DISP.SYRIN. IV ×4 (09:28→19:48)
[2018-02-27 10:30] LABS: ADD MAN DIFF? NO
[2018-02-27 10:42] LABS: BASO % 1 % (0-3); EOS # 0.1 x10^3/uL (0.0-0.7); EOS % 2 % (0-3); HEMOGLOBIN 12.7 g/dL (13.0-17.5); LYMPH # 0.6 x10^3/uL (1.0-4.8); LYMPH % 12 % (24-48); MEAN CORPUSCULAR HEMOGLOBIN 20 pg (25-35); MEAN CORPUSCULAR HGB CONC 32 g/dL (31-37); MEAN CORPUSCULAR VOLUME 64 fL (79-100); MONO # 0.6 x10^3/uL (0.0-1.1); MONO % 10 % (0-9); NEUT % 74 % (31-73); PLATELET COUNT 187 x10^3/uL (140-400); RED BLOOD COUNT 6.22 x10^6/uL (4.30-5.70); RED CELL DISTRIBUTION WIDTH 18.7 % (11.5-14.5); WHITE BLOOD COUNT 5.3 x10^3/uL (4.0-11.0)
[2018-02-27 11:04] LABS: ANION GAP 9 (6-14); BLOOD UREA NITROGEN 19 mg/dL (8-26); CALCIUM 9.3 mg/dL (8.5-10.1); CARBON DIOXIDE 32 mmol/L (21-32); CHLORIDE 96 mmol/L (98-107); CREATININE 0.8 mg/dL (0.7-1.3); GFR 98.6; GLUCOSE 95 mg/dL (70-99); POTASSIUM 4.3 mmol/L (3.5-5.1); SODIUM 137 mmol/L (136-145)
[2018-02-28] MEDS: MORPHINE SULFATE 4 MG/ML DISP.SYRIN. IV ×5 (00:17→14:01)
[2018-02-28 04:31] LABS: ADD MAN DIFF? NO
[2018-02-28 04:37] LABS: BASO % 0 % (0-3); EOS # 0.1 x10^3/uL (0.0-0.7); EOS % 1 % (0-3); HEMOGLOBIN 12.3 g/dL (13.0-17.5); LYMPH # 0.7 x10^3/uL (1.0-4.8); LYMPH % 12 % (24-48); MEAN CORPUSCULAR HEMOGLOBIN 21 pg (25-35); MEAN CORPUSCULAR HGB CONC 32 g/dL (31-37); MEAN CORPUSCULAR VOLUME 64 fL (79-100); MONO # 0.6 x10^3/uL (0.0-1.1); MONO % 11 % (0-9); NEUT # 4.4 x10^3uL (1.8-7.7); NEUT % 76 % (31-73); PLATELET COUNT 188 x10^3/uL (140-400); RED BLOOD COUNT 5.97 x10^6/uL (4.30-5.70); WHITE BLOOD COUNT 5.8 x10^3/uL (4.0-11.0)
[2018-02-28 05:27] LABS: ANION GAP 8 (6-14); BLOOD UREA NITROGEN 21 mg/dL (8-26); CALCIUM 9.2 mg/dL (8.5-10.1); CARBON DIOXIDE 30 mmol/L (21-32); CHLORIDE 97 mmol/L (98-107); CREATININE 0.8 mg/dL (0.7-1.3); GFR 98.6; GLUCOSE 115 mg/dL (70-99); SODIUM 135 mmol/L (136-145)
[2018-02-28] MEDS: fentaNYL 50MCG/HR PATCH 1 PATCH PATCH.TD72 TD (08:15)
[2018-02-28] MEDS ORDERED: fentaNYL 25MCG/HR PATCH 1 PATCH PATCH.TD72 TD (09:30)
[2018-02-28] MEDS ORDERED: ACETAMINOPHEN 325 MG TABLET. PO (09:30)
[2018-02-28] MEDS ORDERED: oxyCODONE/APAP 5/325 1 TAB TABLET PO ×2 (09:45→10:00)
[2018-02-28] MEDS ORDERED: NITROGLYCERIN SUBLINGUAL 0.4 MG BOTTLE OF 25. SL (09:45)
[2018-02-28] MEDS ORDERED: MORPHINE SULFATE 20 MG PO (09:45)
[2018-02-28] MEDS ORDERED: LORazepam 0.5 MG TABLET PO (09:45)
[2018-02-28] MEDS ORDERED: ONDANSETRON ODT 4 MG TAB.RAPDIS. PO (09:45)
[2018-02-28] MEDS: ASPIRIN CHEWABLE 81 MG TABLET. PO ×2 (10:00→13:50)
[2018-02-28] MEDS: POLYETHYLENE GLYCOL 3350 17 GM PACKET. PO (10:00)
[2018-02-28] MEDS: MORPHINE ER 30 MG TABLET.ER PO ×2 (13:48→21:00)
[2018-02-28] MEDS: LEVOTHYROXINE 25 MCG TABLET. PO (13:48)
[2018-02-28] MEDS: FLUDROCORTISONE 0.1 MG TABLET PO (13:48)
[2018-02-28] MEDS: PREGABALIN 75 MG CAPSULE PO ×2 (13:48→20:59)
[2018-02-28] MEDS: FLUoxetine HCL 20 MG CAPSULE PO (13:49)
[2018-02-28] MEDS: THIAMINE 100 MG TABLET. PO (13:49)
[2018-02-28] MEDS: PANTOPRAZOLE 40 MG TABLET.DR. PO (13:49)
[2018-02-28] MEDS: DICYCLOMINE HCL 10 MG CAPSULE PO ×3 (13:49→21:00)
[2018-02-28] MEDS: DULoxetine HCL 30 MG CAPSULE.DR PO (13:49)
[2018-02-28] MEDS: FERROUS SULFATE 325 MG TABLET. PO (13:49)
[2018-02-28] MEDS: CHOLECALCIFEROL (VITAMIN D3) 1,000 UNIT TABLET PO (13:49)
[2018-02-28] MEDS: BACLOFEN 10 MG TABLET. PO ×3 (13:50→20:59)
[2018-02-28] MEDS: traZODone 50 MG TABLET. PO (20:59)
[2018-02-28] MEDS: ATORVASTATIN CALCIUM 10 MG TABLET. PO (20:59)
[2018-02-28] MEDS ORDERED: MINERAL OIL TP (21:00)
[2018-02-28] MEDS ORDERED: PETROLATUM TP (21:00)
[2018-02-28] MEDS ORDERED: FLUPHENAZINE HCL 2.5 MG PO (21:00)
[2018-03-01] MEDS: LEVOTHYROXINE 25 MCG TABLET. PO (07:07)
[2018-03-01] MEDS: FERROUS SULFATE 325 MG TABLET. PO (07:42)
[2018-03-01] MEDS: PREGABALIN 75 MG CAPSULE PO (07:42)
[2018-03-01] MEDS: FLUDROCORTISONE 0.1 MG TABLET PO (07:42)
[2018-03-01] MEDS: DICYCLOMINE HCL 10 MG CAPSULE PO ×2 (07:42→14:58)
[2018-03-01] MEDS: THIAMINE 100 MG TABLET. PO (07:43)
[2018-03-01] MEDS: DULoxetine HCL 30 MG CAPSULE.DR PO (07:43)
[2018-03-01] MEDS: MORPHINE ER 30 MG TABLET.ER PO (07:43)
[2018-03-01] MEDS: BACLOFEN 10 MG TABLET. PO ×2 (07:44→14:58)
[2018-03-01] MEDS: CHOLECALCIFEROL (VITAMIN D3) 1,000 UNIT TABLET PO (07:44)
[2018-03-01] MEDS: FLUoxetine HCL 20 MG CAPSULE PO (07:44)
[2018-03-01] MEDS: PANTOPRAZOLE 40 MG TABLET.DR. PO (07:44)
[2018-03-01] MEDS: POLYETHYLENE GLYCOL 3350 17 GM PACKET. PO (07:48)
[2018-03-01] MEDS: ASPIRIN CHEWABLE 81 MG TABLET. PO (08:06)
[2018-03-01 08:54] LABS: ADD MAN DIFF? NO
[2018-03-01 09:06] LABS: ANION GAP 8 (6-14); BLOOD UREA NITROGEN 20 mg/dL (8-26); CALCIUM 9.7 mg/dL (8.5-10.1); CARBON DIOXIDE 32 mmol/L (21-32); CHLORIDE 96 mmol/L (98-107); CREATININE 1.2 mg/dL (0.7-1.3); GFR 61.8; GLUCOSE 134 mg/dL (70-99); POTASSIUM 3.5 mmol/L (3.5-5.1); SODIUM 136 mmol/L (136-145)
[2018-03-01 09:45] LABS: BASO % 1 % (0-3); EOS # 0.2 x10^3/uL (0.0-0.7); EOS % 2 % (0-3); HEMATOCRIT 41.5 % (39.0-53.0); LYMPH # 1.1 x10^3/uL (1.0-4.8); LYMPH % 12 % (24-48); MEAN CORPUSCULAR HEMOGLOBIN 20 pg (25-35); MEAN CORPUSCULAR HGB CONC 31 g/dL (31-37); MEAN CORPUSCULAR VOLUME 64 fL (79-100); MONO # 0.8 x10^3/uL (0.0-1.1); MONO % 9 % (0-9); NEUT # 6.7 x10^3uL (1.8-7.7); NEUT % 76 % (31-73); PLATELET COUNT 212 x10^3/uL (140-400); RED BLOOD COUNT 6.48 x10^6/uL (4.30-5.70); RED CELL DISTRIBUTION WIDTH 18.8 % (11.5-14.5); WHITE BLOOD COUNT 8.8 x10^3/uL (4.0-11.0)
== END 2018-03-01 15:10 | DRG 147 ==
LOC: 6 SOUTH 02-25 00:20 → ER 20:32
DX: C09.9 Malignant neoplasm of tonsil, unspecified (principal); C15.9 Malignant neoplasm of esophagus, unspecified; K57.92 Diverticulitis of intestine, part unspecified, without perforation or abscess without bleeding; E11.51 Type 2 diabetes mellitus with diabetic peripheral angiopathy without gangrene; G20 Parkinson's disease; E03.9 Hypothyroidism, unspecified; K21.9 Gastro-esophageal reflux disease without esophagitis; K58.9 Irritable bowel syndrome, unspecified; F32.9 Major depressive disorder, single episode, unspecified; Z51.5 Encounter for palliative care; I10 Essential (primary) hypertension; M19.90 Unspecified osteoarthritis, unspecified site; E11.9 Type 2 diabetes mellitus without complications; Z66 Do not resuscitate; Z85.118 Personal history of other malignant neoplasm of bronchus and lung; Z90.49 Acquired absence of other specified parts of digestive tract; Z88.6 Allergy status to analgesic agent; Z88.8 Allergy status to other drugs, medicaments and biological substances; Z82.49 Family history of ischemic heart disease and other diseases of the circulatory system; Z98.1 Arthrodesis status
CPT/HCPCS: 36415; 71046; 71275; 77336; 77386; 80048; 80053; 81001; 82553; 83690; 83735; 83880; 84484; 85025; 85610; 87641; 93005; 97161-GP; 97166-GO; 99285; 99285-25; J2060; J2270; J2405; J3010; J7030; Q9967

== ENCOUNTER 2018-03-02 09:53 | Inpatient (IN) | payer MEDICARE, MEDICAID ==
[2018-03-02 10:12] LABS: BASO % 0 % (0-3); EOS % 0 % (0-3); HEMATOCRIT 37.9 % (39.0-53.0); HEMOGLOBIN 11.9 g/dL (13.0-17.5); LYMPH # 0.3 x10^3/uL (1.0-4.8); LYMPH % 3 % (24-48); MEAN CORPUSCULAR HEMOGLOBIN 20 pg (25-35); MEAN CORPUSCULAR HGB CONC 31 g/dL (31-37); MEAN CORPUSCULAR VOLUME 64 fL (79-100); MONO # 0.3 x10^3/uL (0.0-1.1); MONO % 2 % (0-9); NEUT # 11.2 x10^3uL (1.8-7.7); NEUT % 95 % (31-73); PLATELET COUNT 177 x10^3/uL (140-400); RED BLOOD COUNT 5.94 x10^6/uL (4.30-5.70); RED CELL DISTRIBUTION WIDTH 18.1 % (11.5-14.5); WHITE BLOOD COUNT 11.8 x10^3/uL (4.0-11.0)
[2018-03-02 10:13] LABS: BASE EXCESS COOX 4 mmol/L (-3-3); CARBON MONOXIDE 0.7 % (0.0-1.9); HCO3 COOX 31 mmol/L (21-28); METHEMOGLOBIN 0.3 % (0.0-1.9); OXYHEMOGLOBIN 81.7 %; PCO2 COOX 57 mmHg (35-46); PH COOX 7.35 (7.35-7.45); PO2 COOX 54 mmHg (65-108); SAT O2 COOX 83 % (92-99); TOTAL HEMOGLOBIN 12.6 g/dL
[2018-03-02 10:15] LABS: ADD MAN DIFF? YES
[2018-03-02 10:25] LABS: ANION GAP 6 (6-14); BLOOD UREA NITROGEN 48 mg/dL (8-26); BUN/CREATININE RATIO 19 (6-20); CALCIUM 9.2 mg/dL (8.5-10.1); CARBON DIOXIDE 34 mmol/L (21-32); CHLORIDE 95 mmol/L (98-107); CREATININE 2.5 mg/dL (0.7-1.3); GFR 26.5; GLUCOSE 158 mg/dL (70-99); POTASSIUM 3.9 mmol/L (3.5-5.1); SODIUM 135 mmol/L (136-145)
[2018-03-02] MEDS: ALBUTEROL SULFATE 2.5 MG/3 ML NEBU. CONT NEB (10:29)
[2018-03-02] MEDS: IPRATROPIUM BROMIDE 0.5 MG/2.5 ML NEBU. NEB (10:29)
[2018-03-02 10:31] LABS: ALBUMIN 3.6 g/dL (3.4-5.0); ALBUMIN/GLOBULIN RATIO 1.1 (1.0-1.7); ALK PHOS 104 U/L (46-116); ALT (SGPT) 71 U/L (16-63); AST (SGOT) 127 U/L (15-37); TOTAL BILIRUBIN 0.5 mg/dL (0.2-1.0); TOTAL PROTEIN 6.9 g/dL (6.4-8.2)
[2018-03-02 10:33] LABS: LACTIC ACID 2.7 mmol/L (0.4-2.0)
[2018-03-02 10:37] LABS: NT-PRO BNP 774 pg/mL (0-124)
[2018-03-02] MEDS ORDERED: VANCOMYCIN 1GM IVPB FOR OMNI 250 ML IV (11:15)
[2018-03-02] MEDS: IV NORMAL SALINE 1000ML BAG 1,000 ML IV (11:33)
[2018-03-02] MEDS: FUROSEMIDE 40 MG/4 ML VIAL. IVP (11:35)
[2018-03-02] MEDS: PIPERACILLIN/TAZOBACTAM 3.375 GM in IV NORMAL SALINE 50ML 50 ML IV (11:39)
[2018-03-02] MEDS: VANCOMYCIN 1.75 GM in IV NORMAL SALINE 500ML BAG 500 ML IV (12:24)
[2018-03-02 12:47] LABS: % BANDS 17 % (0-9); % LYMPHS 5 % (24-48); % MONOS 2 % (0-10); % SEGS 76 % (35-66); PLT ESTIMATE ADEQUATE (ADEQUATE)
[2018-03-02] MEDS ORDERED: ACETAMINOPHEN 325 MG TABLET. PO (13:00)
[2018-03-02 13:43] LABS: BILIRUBIN,URINE NEGATIVE (NEG); CLARITY,URINE CLEAR; COLOR,URINE YELLOW; GLUCOSE,URINE NEGATIVE (NEG); NITRITE,URINE NEGATIVE (NEG); PROTEIN,URINE NEGATIVE (NEG-TRACE); UROBILINOGEN,URINE 0.2 mg/dL (0.2 mg/dL)
[2018-03-02 13:56] LABS: BACTERIA,URINE 0 /HPF (0-FEW); RBC,URINE RARE /HPF (0-2); SQUAMOUS EPITHELIAL CELL,UR OCC /LPF
[2018-03-02 15:31] LABS: LACTIC ACID 1.4 mmol/L (0.4-2.0)
[2018-03-02] MEDS: IPRATRPIUM/ALBUTEROL 0.5/2.5MG 3 ML NEBU. NEB ×2 (16:02→19:51)
[2018-03-02] MEDS: methylPREDNISolone SOD SUCC PF 40 MG/ML VIAL. IV ×2 (17:00→21:38)
[2018-03-02] MEDS ORDERED: ATROPINE 0.5 MG/5 ML DISP.SYRINGE. IV (19:15)
[2018-03-02] MEDS ORDERED: IV NORMAL SALINE 500ML BAG 500 ML IV (19:15)
[2018-03-02] MEDS: DEXMEDETOMIDINE 200 MCG in IV NORMAL SALINE 50ML 48 ML IV (19:21)
[2018-03-02] MEDS: FAMOTIDINE 20 MG/2 ML VIAL IVP (21:38)
[2018-03-02] MEDS: ENOXAPARIN 40 MG/0.4 ML SYRINGE. SQ (21:38)
[2018-03-03] MEDS: methylPREDNISolone SOD SUCC PF 40 MG/ML VIAL. IV ×3 (05:49→21:13)
[2018-03-03] MEDS: IPRATRPIUM/ALBUTEROL 0.5/2.5MG 3 ML NEBU. NEB ×3 (07:34→19:57)
[2018-03-03 07:51] LABS: BASE EXCESS ABG 5 mmol/L (-3-3); HCO3 ABG 30 mmol/L (21-28); PCO2 ABG 50 mmHg (35-46); PO2 ABG 53 mmHg (65-108); SAT O2 ABG 82 % (92-99)
[2018-03-03 07:56] LABS: FIO2 ABG 30
[2018-03-03] MEDS ORDERED: NITROGLYCERIN SUBLINGUAL 0.4 MG BOTTLE OF 25. SL (08:15)
[2018-03-03] MEDS ORDERED: ACETAMINOPHEN 500 MG TABLET PO (08:15)
[2018-03-03] MEDS ORDERED: ONDANSETRON PF 4 MG/2 ML VIAL. IV (08:15)
[2018-03-03] MEDS ORDERED: HALOPERIDOL LACTATE 5 MG/ML VIAL. IVP (08:15)
[2018-03-03] MEDS: MINERAL OIL/PETROLATUM TOPICAL CREAM 113GM JAR. TP ×2 (08:40→21:04)
[2018-03-03] MEDS: DEXMEDETOMIDINE 200 MCG in IV NORMAL SALINE 50ML 48 ML IV (08:40)
[2018-03-03] MEDS: POLYETHYLENE GLYCOL 3350 17 GM PACKET. PO (08:41)
[2018-03-03] MEDS: IV NORMAL SALINE 1000ML BAG 1,000 ML IV ×2 (08:41→21:14)
[2018-03-03] MEDS: FLUDROCORTISONE 0.1 MG TABLET PO (08:41)
[2018-03-03] MEDS: FERROUS SULFATE 325 MG TABLET. PO (08:41)
[2018-03-03] MEDS: ASPIRIN CHEWABLE 81 MG TABLET. PO (08:41)
[2018-03-03] MEDS: PANTOPRAZOLE 40 MG TABLET.DR. PO (08:42)
[2018-03-03] MEDS: CHOLECALCIFEROL (VITAMIN D3) 1,000 UNIT TABLET PO (08:42)
[2018-03-03] MEDS: LEVOTHYROXINE 25 MCG TABLET. PO (08:42)
[2018-03-03] MEDS: THIAMINE 100 MG TABLET. PO (08:42)
[2018-03-03 09:18] LABS: ADD MAN DIFF? NO
[2018-03-03 09:32] LABS: ANION GAP 5 (6-14); BLOOD UREA NITROGEN 54 mg/dL (8-26); CALCIUM 8.7 mg/dL (8.5-10.1); CARBON DIOXIDE 31 mmol/L (21-32); CHLORIDE 102 mmol/L (98-107); CREATININE 1.3 mg/dL (0.7-1.3); GFR 56.3; GLUCOSE 143 mg/dL (70-99); POTASSIUM 3.7 mmol/L (3.5-5.1); SODIUM 138 mmol/L (136-145)
[2018-03-03 09:33] LABS: BASO % 0 % (0-3); EOS % 0 % (0-3); HEMATOCRIT 33.2 % (39.0-53.0); HEMOGLOBIN 10.5 g/dL (13.0-17.5); LYMPH # 0.3 x10^3/uL (1.0-4.8); LYMPH % 4 % (24-48); MEAN CORPUSCULAR HEMOGLOBIN 20 pg (25-35); MEAN CORPUSCULAR HGB CONC 32 g/dL (31-37); MEAN CORPUSCULAR VOLUME 64 fL (79-100); MONO # 0.3 x10^3/uL (0.0-1.1); MONO % 5 % (0-9); NEUT # 5.7 x10^3uL (1.8-7.7); NEUT % 91 % (31-73); PLATELET COUNT 125 x10^3/uL (140-400); RED BLOOD COUNT 5.22 x10^6/uL (4.30-5.70); RED CELL DISTRIBUTION WIDTH 18.4 % (11.5-14.5); WHITE BLOOD COUNT 6.3 x10^3/uL (4.0-11.0)
[2018-03-03] MEDS: VANCOMYCIN PER PHARMACY MC (14:07)
[2018-03-03] MEDS: PIPERACILLIN/TAZOBACTAM 4.5 GM in IV NORMAL SALINE 100ML 100 ML IV ×2 (14:30→21:14)
[2018-03-03] MEDS: VANCOMYCIN 1 GM in IV NORMAL SALINE 250ML 250 ML IV (14:30)
[2018-03-03] MEDS: LACTOBACILLUS RHAMNOSUS GG 1 CAPSULE. PO (21:03)
[2018-03-03] MEDS: ATORVASTATIN CALCIUM 10 MG TABLET. PO (21:03)
[2018-03-03] MEDS: ENOXAPARIN 40 MG/0.4 ML SYRINGE. SQ (21:04)
[2018-03-03] MEDS: ACETAMINOPHEN/CODEINE 300/30MG TABLET. PO (21:13)
[2018-03-04] MEDS: PIPERACILLIN/TAZOBACTAM 4.5 GM in IV NORMAL SALINE 100ML 100 ML IV ×4 (00:43→16:43)
[2018-03-04] MEDS: ACETAMINOPHEN/CODEINE 300/30MG TABLET. PO ×3 (01:27→16:42)
[2018-03-04 07:33] LABS: ADD MAN DIFF? NO
[2018-03-04 07:43] LABS: BASO % 0 % (0-3); EOS % 0 % (0-3); HEMATOCRIT 31.3 % (39.0-53.0); LYMPH # 0.2 x10^3/uL (1.0-4.8); LYMPH % 3 % (24-48); MEAN CORPUSCULAR HEMOGLOBIN 20 pg (25-35); MEAN CORPUSCULAR HGB CONC 32 g/dL (31-37); MEAN CORPUSCULAR VOLUME 63 fL (79-100); MONO # 0.3 x10^3/uL (0.0-1.1); MONO % 4 % (0-9); NEUT # 6.1 x10^3uL (1.8-7.7); NEUT % 93 % (31-73); PLATELET COUNT 150 x10^3/uL (140-400); RED BLOOD COUNT 4.95 x10^6/uL (4.30-5.70); RED CELL DISTRIBUTION WIDTH 18.9 % (11.5-14.5); WHITE BLOOD COUNT 6.6 x10^3/uL (4.0-11.0)
[2018-03-04 07:50] LABS: ALBUMIN 2.5 g/dL (3.4-5.0); ANION GAP 5 (6-14); BLOOD UREA NITROGEN 34 mg/dL (8-26); CALCIUM 8.5 mg/dL (8.5-10.1); CARBON DIOXIDE 31 mmol/L (21-32); CHLORIDE 104 mmol/L (98-107); CREATININE 0.8 mg/dL (0.7-1.3); GFR 98.6; GLUCOSE 144 mg/dL (70-99); PHOSPHORUS 2.5 mg/dL (2.6-4.7); POTASSIUM 3.6 mmol/L (3.5-5.1); SODIUM 140 mmol/L (136-145)
[2018-03-04] MEDS: IV NORMAL SALINE 1000ML BAG 1,000 ML IV ×2 (08:33→21:45)
[2018-03-04] MEDS: FLUDROCORTISONE 0.1 MG TABLET PO (08:34)
[2018-03-04] MEDS: FERROUS SULFATE 325 MG TABLET. PO (08:34)
[2018-03-04] MEDS: PANTOPRAZOLE 40 MG TABLET.DR. PO (08:34)
[2018-03-04] MEDS: ASPIRIN CHEWABLE 81 MG TABLET. PO (08:34)
[2018-03-04] MEDS: LACTOBACILLUS RHAMNOSUS GG 1 CAPSULE. PO ×2 (08:34→20:36)
[2018-03-04] MEDS: THIAMINE 100 MG TABLET. PO (08:34)
[2018-03-04] MEDS: CHOLECALCIFEROL (VITAMIN D3) 1,000 UNIT TABLET PO (08:34)
[2018-03-04] MEDS: methylPREDNISolone SOD SUCC PF 40 MG/ML VIAL. IV ×2 (08:34→20:36)
[2018-03-04] MEDS: hydrALAZINE 20 MG/ML VIAL. IVP (08:35)
[2018-03-04] MEDS: LEVOTHYROXINE 25 MCG TABLET. PO (08:35)
[2018-03-04] MEDS: POLYETHYLENE GLYCOL 3350 17 GM PACKET. PO (08:36)
[2018-03-04] MEDS: MINERAL OIL/PETROLATUM TOPICAL CREAM 113GM JAR. TP ×2 (08:36→20:39)
[2018-03-04] MEDS: IPRATRPIUM/ALBUTEROL 0.5/2.5MG 3 ML NEBU. NEB ×4 (09:20→19:57)
[2018-03-04 12:46] LABS: ALBUMIN 2.5 g/dL (3.4-5.0); ALK PHOS 61 U/L (46-116); ALT (SGPT) 52 U/L (16-63); AST (SGOT) 89 U/L (15-37); DIRECT BILIRUBIN 0.2 mg/dL (0.0-0.2); TOTAL BILIRUBIN 0.4 mg/dL (0.2-1.0)
[2018-03-04] MEDS: NYSTATIN 100,000 UNITS/ML 5 ML ORAL.SUSP. SWSW ×3 (13:12→20:36)
[2018-03-04 14:34] LABS: VANC TR 5.4 mcg/mL (10.0-20.0)
[2018-03-04] MEDS: VANCOMYCIN PER PHARMACY MC ×2 (15:05→15:10)
[2018-03-04] MEDS: VANCOMYCIN 1.25 GM in IV NORMAL SALINE 250ML 250 ML IV (15:30)
[2018-03-04] MEDS: ONDANSETRON ODT 4 MG TAB.RAPDIS. PO (19:59)
[2018-03-04] MEDS: oxyCODONE/APAP 7.5/325 1 TAB TABLET PO (20:23)
[2018-03-04] MEDS: ENOXAPARIN 40 MG/0.4 ML SYRINGE. SQ (20:36)
[2018-03-04] MEDS: ATORVASTATIN CALCIUM 10 MG TABLET. PO (20:37)
[2018-03-05] MEDS: oxyCODONE/APAP 10/325 1 TAB TABLET PO ×4 (00:19→16:04)
[2018-03-05] MEDS: PIPERACILLIN/TAZOBACTAM 4.5 GM in IV NORMAL SALINE 100ML 100 ML IV ×5 (00:19→23:08)
[2018-03-05] MEDS: VANCOMYCIN 1.25 GM in IV NORMAL SALINE 250ML 250 ML IV ×2 (03:37→16:37)
[2018-03-05] MEDS: hydrALAZINE 20 MG/ML VIAL. IVP ×2 (03:49→19:41)
[2018-03-05 04:52] LABS: ADD MAN DIFF? NO
[2018-03-05 04:56] LABS: BASO % 0 % (0-3); EOS % 0 % (0-3); HEMATOCRIT 30.9 % (39.0-53.0); HEMOGLOBIN 9.9 g/dL (13.0-17.5); LYMPH # 0.2 x10^3/uL (1.0-4.8); LYMPH % 3 % (24-48); MEAN CORPUSCULAR HEMOGLOBIN 20 pg (25-35); MEAN CORPUSCULAR HGB CONC 32 g/dL (31-37); MEAN CORPUSCULAR VOLUME 63 fL (79-100); MONO # 0.2 x10^3/uL (0.0-1.1); MONO % 4 % (0-9); NEUT # 5.4 x10^3uL (1.8-7.7); NEUT % 93 % (31-73); PLATELET COUNT 156 x10^3/uL (140-400); RED CELL DISTRIBUTION WIDTH 18.9 % (11.5-14.5); WHITE BLOOD COUNT 5.9 x10^3/uL (4.0-11.0)
[2018-03-05 05:12] LABS: ANION GAP 6 (6-14); BLOOD UREA NITROGEN 15 mg/dL (8-26); CALCIUM 8.1 mg/dL (8.5-10.1); CARBON DIOXIDE 29 mmol/L (21-32); CHLORIDE 105 mmol/L (98-107); CREATININE 0.6 mg/dL (0.7-1.3); GFR 137.4; GLUCOSE 134 mg/dL (70-99); POTASSIUM 3.4 mmol/L (3.5-5.1); SODIUM 140 mmol/L (136-145)
[2018-03-05] MEDS: ASPIRIN CHEWABLE 81 MG TABLET. PO (05:54)
[2018-03-05] MEDS: PANTOPRAZOLE 40 MG TABLET.DR. PO (05:54)
[2018-03-05] MEDS: LEVOTHYROXINE 25 MCG TABLET. PO (05:54)
[2018-03-05] MEDS: LORazepam 0.5 MG TABLET PO ×2 (06:43→21:04)
[2018-03-05 06:53] LABS: SEDIMENTATION RATE 30 (0-15)
[2018-03-05] MEDS: IPRATRPIUM/ALBUTEROL 0.5/2.5MG 3 ML NEBU. NEB ×4 (09:36→19:40)
[2018-03-05] MEDS: IV NORMAL SALINE 1000ML BAG 1,000 ML IV ×3 (10:15→21:05)
[2018-03-05] MEDS: MINERAL OIL/PETROLATUM TOPICAL CREAM 113GM JAR. TP ×2 (11:09→21:00)
[2018-03-05] MEDS: FERROUS SULFATE 325 MG TABLET. PO (11:09)
[2018-03-05] MEDS: LACTOBACILLUS RHAMNOSUS GG 1 CAPSULE. PO ×2 (11:09→21:04)
[2018-03-05] MEDS: CHOLECALCIFEROL (VITAMIN D3) 1,000 UNIT TABLET PO (11:09)
[2018-03-05] MEDS: THIAMINE 100 MG TABLET. PO (11:09)
[2018-03-05] MEDS: NYSTATIN 100,000 UNITS/ML 5 ML ORAL.SUSP. SWSW ×4 (11:09→21:03)
[2018-03-05] MEDS: POLYETHYLENE GLYCOL 3350 17 GM PACKET. PO (11:09)
[2018-03-05] MEDS: methylPREDNISolone SOD SUCC PF 40 MG/ML VIAL. IV ×2 (11:17→21:04)
[2018-03-05] MEDS: VANCOMYCIN PER PHARMACY MC (12:30)
[2018-03-05] MEDS ORDERED: fentaNYL PF VIAL 100 MCG/2 ML VIAL IV (20:15)
[2018-03-05] MEDS ORDERED: ENALAPRILAT 1.25 MG/ML VIAL. IV (20:15)
[2018-03-05] MEDS: MORPHINE SULFATE 2 MG/ML DISP.SYRIN. IV ×2 (20:20→23:08)
[2018-03-05] MEDS: ATORVASTATIN CALCIUM 10 MG TABLET. PO (21:04)
[2018-03-05] MEDS: oxyCODONE/APAP 7.5/325 1 TAB TABLET PO (21:05)
[2018-03-05] MEDS: ENOXAPARIN 40 MG/0.4 ML SYRINGE. SQ (21:06)
[2018-03-06 02:44] LABS: ADD MAN DIFF? NO
[2018-03-06 03:09] LABS: ANION GAP 8 (6-14); BLOOD UREA NITROGEN 10 mg/dL (8-26); CALCIUM 8.4 mg/dL (8.5-10.1); CARBON DIOXIDE 30 mmol/L (21-32); CHLORIDE 101 mmol/L (98-107); CREATININE 0.8 mg/dL (0.7-1.3); GFR 98.6; GLUCOSE 134 mg/dL (70-99); POTASSIUM 3.5 mmol/L (3.5-5.1); SODIUM 139 mmol/L (136-145)
[2018-03-06 03:15] LABS: VANC TR 11.2 mcg/mL (10.0-20.0)
[2018-03-06] MEDS: VANCOMYCIN 1.25 GM in IV NORMAL SALINE 250ML 250 ML IV (03:31)
[2018-03-06] MEDS: hydrALAZINE 20 MG/ML VIAL. IVP (03:31)
[2018-03-06] MEDS: MORPHINE SULFATE 2 MG/ML DISP.SYRIN. IV ×4 (03:32→23:40)
[2018-03-06] MEDS: VANCOMYCIN PER PHARMACY MC ×2 (03:55→14:30)
[2018-03-06 04:52] LABS: BASO % 0 % (0-3); EOS % 0 % (0-3); HEMOGLOBIN 10.9 g/dL (13.0-17.5); LYMPH # 0.3 x10^3/uL (1.0-4.8); LYMPH % 3 % (24-48); MEAN CORPUSCULAR HEMOGLOBIN 20 pg (25-35); MEAN CORPUSCULAR HGB CONC 32 g/dL (31-37); MEAN CORPUSCULAR VOLUME 63 fL (79-100); MONO # 0.6 x10^3/uL (0.0-1.1); MONO % 6 % (0-9); NEUT # 9.1 x10^3uL (1.8-7.7); NEUT % 91 % (31-73); PLATELET COUNT 199 x10^3/uL (140-400); RED BLOOD COUNT 5.38 x10^6/uL (4.30-5.70); RED CELL DISTRIBUTION WIDTH 18.9 % (11.5-14.5)
[2018-03-06] MEDS: PIPERACILLIN/TAZOBACTAM 4.5 GM in IV NORMAL SALINE 100ML 100 ML IV ×4 (06:00→23:42)
[2018-03-06] MEDS: oxyCODONE/APAP 10/325 1 TAB TABLET PO ×3 (06:13→21:48)
[2018-03-06] MEDS: ASPIRIN CHEWABLE 81 MG TABLET. PO (06:13)
[2018-03-06] MEDS: PANTOPRAZOLE 40 MG TABLET.DR. PO (06:13)
[2018-03-06] MEDS: LEVOTHYROXINE 25 MCG TABLET. PO (06:14)
[2018-03-06] MEDS: IV NORMAL SALINE 1000ML BAG 1,000 ML IV ×3 (06:15→23:43)
[2018-03-06] MEDS: IPRATRPIUM/ALBUTEROL 0.5/2.5MG 3 ML NEBU. NEB ×5 (07:44→19:35)
[2018-03-06] MEDS: POLYETHYLENE GLYCOL 3350 17 GM PACKET. PO (08:44)
[2018-03-06] MEDS: THIAMINE 100 MG TABLET. PO (08:45)
[2018-03-06] MEDS: NYSTATIN 100,000 UNITS/ML 5 ML ORAL.SUSP. SWSW ×4 (08:45→20:40)
[2018-03-06] MEDS: methylPREDNISolone SOD SUCC PF 40 MG/ML VIAL. IV ×2 (08:45→20:41)
[2018-03-06] MEDS: CHOLECALCIFEROL (VITAMIN D3) 1,000 UNIT TABLET PO (08:45)
[2018-03-06] MEDS: LACTOBACILLUS RHAMNOSUS GG 1 CAPSULE. PO ×2 (08:45→20:40)
[2018-03-06] MEDS: FERROUS SULFATE 325 MG TABLET. PO (08:45)
[2018-03-06] MEDS: MINERAL OIL/PETROLATUM TOPICAL CREAM 113GM JAR. TP ×2 (08:46→20:47)
[2018-03-06] MEDS: ACETAMINOPHEN/CODEINE 300/30MG TABLET. PO (08:49)
[2018-03-06] MEDS: LORazepam 0.5 MG TABLET PO (08:49)
[2018-03-06] MEDS ORDERED: LIDO:MAALOX:BENADRYL 1:1:1 180 ML BOTTLE. PO (09:15)
[2018-03-06] MEDS: VANCOMYCIN 1.5 GM in IV NORMAL SALINE 500ML BAG 500 ML IV (16:14)
[2018-03-06] MEDS: ATORVASTATIN CALCIUM 10 MG TABLET. PO (20:40)
[2018-03-06] MEDS: ENOXAPARIN 40 MG/0.4 ML SYRINGE. SQ ×2 (20:41→20:47)
[2018-03-06 22:16] LABS: MRSA BY PCR Positive (Negative)
[2018-03-07] MEDS: VANCOMYCIN 1.5 GM in IV NORMAL SALINE 500ML BAG 500 ML IV ×2 (03:08→17:07)
[2018-03-07] MEDS: MORPHINE SULFATE 2 MG/ML DISP.SYRIN. IV ×3 (04:15→15:01)
[2018-03-07] MEDS: PIPERACILLIN/TAZOBACTAM 4.5 GM in IV NORMAL SALINE 100ML 100 ML IV (05:56)
[2018-03-07] MEDS: POLYETHYLENE GLYCOL 3350 17 GM PACKET. PO (08:03)
[2018-03-07] MEDS: LACTOBACILLUS RHAMNOSUS GG 1 CAPSULE. PO ×2 (08:03→21:24)
[2018-03-07] MEDS: NYSTATIN 100,000 UNITS/ML 5 ML ORAL.SUSP. SWSW ×4 (08:03→21:24)
[2018-03-07] MEDS: CHOLECALCIFEROL (VITAMIN D3) 1,000 UNIT TABLET PO (08:04)
[2018-03-07] MEDS: LEVOTHYROXINE 25 MCG TABLET. PO (08:04)
[2018-03-07] MEDS: FERROUS SULFATE 325 MG TABLET. PO (08:04)
[2018-03-07] MEDS: THIAMINE 100 MG TABLET. PO (08:04)
[2018-03-07] MEDS: methylPREDNISolone SOD SUCC PF 40 MG/ML VIAL. IV ×2 (08:04→21:23)
[2018-03-07] MEDS: ASPIRIN CHEWABLE 81 MG TABLET. PO (08:04)
[2018-03-07] MEDS: PANTOPRAZOLE 40 MG TABLET.DR. PO (08:04)
[2018-03-07] MEDS: IPRATRPIUM/ALBUTEROL 0.5/2.5MG 3 ML NEBU. NEB ×4 (08:10→17:39)
[2018-03-07] MEDS: MINERAL OIL/PETROLATUM TOPICAL CREAM 113GM JAR. TP ×2 (09:00→21:00)
[2018-03-07 09:28] LABS: ADD MAN DIFF? NO
[2018-03-07 09:35] LABS: BASO % 0 % (0-3); EOS % 0 % (0-3); HEMATOCRIT 35.3 % (39.0-53.0); HEMOGLOBIN 11.1 g/dL (13.0-17.5); LYMPH # 0.5 x10^3/uL (1.0-4.8); LYMPH % 6 % (24-48); MEAN CORPUSCULAR HEMOGLOBIN 20 pg (25-35); MEAN CORPUSCULAR HGB CONC 32 g/dL (31-37); MEAN CORPUSCULAR VOLUME 63 fL (79-100); MONO # 0.4 x10^3/uL (0.0-1.1); MONO % 6 % (0-9); NEUT # 6.7 x10^3uL (1.8-7.7); NEUT % 88 % (31-73); PLATELET COUNT 181 x10^3/uL (140-400); RED BLOOD COUNT 5.61 x10^6/uL (4.30-5.70); RED CELL DISTRIBUTION WIDTH 18.5 % (11.5-14.5); WHITE BLOOD COUNT 7.6 x10^3/uL (4.0-11.0)
[2018-03-07 09:44] LABS: ANION GAP 7 (6-14); BLOOD UREA NITROGEN 14 mg/dL (8-26); CALCIUM 8.8 mg/dL (8.5-10.1); CARBON DIOXIDE 29 mmol/L (21-32); CHLORIDE 102 mmol/L (98-107); CREATININE 0.7 mg/dL (0.7-1.3); GLUCOSE 143 mg/dL (70-99); POTASSIUM 3.1 mmol/L (3.5-5.1); SODIUM 138 mmol/L (136-145)
[2018-03-07] MEDS: MORPHINE SULFATE 20 MG/ML CONC SOLUTION. SL (11:25)
[2018-03-07] MEDS: LORazepam 0.5 MG TABLET PO ×2 (12:57→21:57)
[2018-03-07] MEDS: IV NORMAL SALINE 1000ML BAG 1,000 ML IV ×2 (15:01→23:29)
[2018-03-07 15:05] LABS: VANC TR 14.5 mcg/mL (10.0-20.0)
[2018-03-07] MEDS: hydrALAZINE 20 MG/ML VIAL. IVP (15:06)
[2018-03-07] MEDS: VANCOMYCIN PER PHARMACY MC (15:23)
[2018-03-07] MEDS: MORPHINE SULFATE 4 MG/ML DISP.SYRIN. IV ×4 (17:08→23:29)
[2018-03-07] MEDS: ATORVASTATIN CALCIUM 10 MG TABLET. PO (21:24)
[2018-03-07] MEDS: ENOXAPARIN 40 MG/0.4 ML SYRINGE. SQ (21:26)
[2018-03-08] MEDS: MORPHINE SULFATE 4 MG/ML DISP.SYRIN. IV ×6 (01:47→12:03)
[2018-03-08] MEDS: VANCOMYCIN 1.5 GM in IV NORMAL SALINE 500ML BAG 500 ML IV (02:31)
[2018-03-08] MEDS: ASPIRIN CHEWABLE 81 MG TABLET. PO (05:56)
[2018-03-08] MEDS: LEVOTHYROXINE 25 MCG TABLET. PO (05:56)
[2018-03-08] MEDS: PANTOPRAZOLE 40 MG TABLET.DR. PO (05:56)
[2018-03-08 06:49] LABS: ADD MAN DIFF? NO
[2018-03-08 07:00] LABS: BASO % 0 % (0-3); EOS % 0 % (0-3); HEMATOCRIT 33.9 % (39.0-53.0); HEMOGLOBIN 10.8 g/dL (13.0-17.5); LYMPH # 0.4 x10^3/uL (1.0-4.8); LYMPH % 5 % (24-48); MEAN CORPUSCULAR HEMOGLOBIN 20 pg (25-35); MEAN CORPUSCULAR HGB CONC 32 g/dL (31-37); MEAN CORPUSCULAR VOLUME 63 fL (79-100); MONO # 0.5 x10^3/uL (0.0-1.1); MONO % 5 % (0-9); NEUT # 8.1 x10^3uL (1.8-7.7); NEUT % 90 % (31-73); PLATELET COUNT 209 x10^3/uL (140-400); RED BLOOD COUNT 5.41 x10^6/uL (4.30-5.70); RED CELL DISTRIBUTION WIDTH 18.7 % (11.5-14.5)
[2018-03-08 07:13] LABS: ANION GAP 7 (6-14); BLOOD UREA NITROGEN 10 mg/dL (8-26); CALCIUM 8.1 mg/dL (8.5-10.1); CARBON DIOXIDE 28 mmol/L (21-32); CHLORIDE 101 mmol/L (98-107); CREATININE 0.5 mg/dL (0.7-1.3); GFR 169.6; GLUCOSE 114 mg/dL (70-99); POTASSIUM 3.5 mmol/L (3.5-5.1); SODIUM 136 mmol/L (136-145)
[2018-03-08] MEDS: IPRATRPIUM/ALBUTEROL 0.5/2.5MG 3 ML NEBU. NEB ×2 (07:13→12:00)
[2018-03-08] MEDS: FERROUS SULFATE 325 MG TABLET. PO (08:07)
[2018-03-08] MEDS: methylPREDNISolone SOD SUCC PF 40 MG/ML VIAL. IV (08:08)
[2018-03-08] MEDS: LACTOBACILLUS RHAMNOSUS GG 1 CAPSULE. PO (08:08)
[2018-03-08] MEDS: CHOLECALCIFEROL (VITAMIN D3) 1,000 UNIT TABLET PO (08:08)
[2018-03-08] MEDS: THIAMINE 100 MG TABLET. PO (08:08)
[2018-03-08] MEDS: POLYETHYLENE GLYCOL 3350 17 GM PACKET. PO (08:12)
[2018-03-08] MEDS: NYSTATIN 100,000 UNITS/ML 5 ML ORAL.SUSP. SWSW ×2 (08:17→13:00)
[2018-03-08] MEDS: DOXYCYCLINE HYCLATE 100 MG TABLET PO (08:23)
[2018-03-08] MEDS: MINERAL OIL/PETROLATUM TOPICAL CREAM 113GM JAR. TP (10:12)
== END 2018-03-08 14:02 | DRG 177 ==
LOC: 6 SOUTH 03-05 08:02 → ER 09:53 → 1 WEST ICU 13:12
PROC: 5A09357 Assistance with Respiratory Ventilation, Less than 24 Consecutive Hours, Continuous Positive Airway Pressure (ICD-10-PCS; principal; 2018-03-02)
PROC: 5A09357 Assistance with Respiratory Ventilation, Less than 24 Consecutive Hours, Continuous Positive Airway Pressure (ICD-10-PCS; 2018-03-03)
DX: J15.0 Pneumonia due to Klebsiella pneumoniae (principal); J96.01 Acute respiratory failure with hypoxia; E43 Unspecified severe protein-calorie malnutrition; N17.9 Acute kidney failure, unspecified; J44.0 Chronic obstructive pulmonary disease with (acute) lower respiratory infection; J44.1 Chronic obstructive pulmonary disease with (acute) exacerbation; B37.9 Candidiasis, unspecified; C09.9 Malignant neoplasm of tonsil, unspecified; C14.0 Malignant neoplasm of pharynx, unspecified; D64.9 Anemia, unspecified; E03.9 Hypothyroidism, unspecified; F32.9 Major depressive disorder, single episode, unspecified; G20 Parkinson's disease; I10 Essential (primary) hypertension; K21.9 Gastro-esophageal reflux disease without esophagitis; K58.9 Irritable bowel syndrome, unspecified; K57.90 Diverticulosis of intestine, part unspecified, without perforation or abscess without bleeding; M19.90 Unspecified osteoarthritis, unspecified site; I45.10 Unspecified right bundle-branch block; C76.0 Malignant neoplasm of head, face and neck; D72.829 Elevated white blood cell count, unspecified; Z85.118 Personal history of other malignant neoplasm of bronchus and lung; Z68.22 Body mass index [BMI] 22.0-22.9, adult; Z80.0 Family history of malignant neoplasm of digestive organs; Z82.49 Family history of ischemic heart disease and other diseases of the circulatory system; Z92.3 Personal history of irradiation; Z88.8 Allergy status to other drugs, medicaments and biological substances; Z90.49 Acquired absence of other specified parts of digestive tract; Z87.820 Personal history of traumatic brain injury; A49.02 Methicillin resistant Staphylococcus aureus infection, unspecified site
CPT/HCPCS: 36415; 36600; 71045; 78582; 80048; 80053; 80069; 80076; 80202; 81001; 82805; 83605; 83880; 84484; 85007; 85025; 85651; 87040; 87070; 87186; 87205; 87641; 92610-GN; 93005; 93970; 94640; 94644; 94660; 94760; 96365; 96367; 96374; 96375; 97162-GP; 97166-GO; 97530-GO; 97535-GO; 99291; 99291-25; A9540; A9558; J0360; J1650; J1940; J2060; J2270; J2543; J2920; J3370; J7030; J7040; J7050; J7613; J7620; J7644; Q0162; S0028

== ENCOUNTER 2018-03-19 19:48 | Inpatient (IN) | payer MEDICARE, MEDICAID ==
[~2018-03-19] VITALS: Ht 177.8 cm; Wt 67.6 kg
[~2018-03-19 19:48] MED LIST changes: +ATOR10TA PO; +DICY20TA3 PO; +DULO30CA2 PO; +FENT1PAT15 TD; +FENT1PAT19 TD; -FERR-26 PO; +FERR325T14 PO; +FLUP5TAB PO; +HYDR-963 PO; +LORA0.5T96 PO; +METH113C6 TP; +MINE396O2 TP; +MORP20SO PO; +NITR0.4T22 SL; +OMEP20TA63 PO; +ONDA4TAB10 SL; +OXYC-323 PO; +OXYC-327 PO; +POLY17PO29 PO
[2018-03-19] MEDS ORDERED: ONDANSETRON PF 4 MG/2 ML VIAL. IV ONE (21:00)
[2018-03-19] MEDS ORDERED: fentaNYL PF VIAL 100 MCG/2 ML VIAL IV ONE (21:00)
--- NOTE | 2018-03-19 21:12 | RAD ---
PQRS Compliance statement: One or more of the following individualized dose reduction techniques were utilized for this examination: 1. Automated exposure control. 2. Adjustment of the mA and/or kV according to patient size. 3. Use of iterative reconstruction technique. Indication:diffuse abd pain today TECHNIQUE: CT abdomen and pelvis without IV contrast with multiplanar reformats. COMPARISON: 12/10/2017 FINDINGS: Limited exam due to lack of IV contrast. Heart is normal in size. No pericardial or pleural effusion. Bilateral nodular opacities are seen in the lung bases, new from prior study. Noncontrast appearance of the liver, spleen, pancreas, adrenals within normal limits. Status post cholecystectomy. Punctate nonobstructing bilateral renal stones. No hydronephrosis. No enlarged retroperitoneal or pelvic adenopathy. Diffuse atherosclerotic calcification seen of the abdominal aorta and bilateral iliac arteries. No free pelvic fluid or ascites. No bowel obstruction. Normal appendix. Trace amount of air is seen in the nondependent portion of the urinary bladder. No radiopaque stones in the bladder. Prostate and seminal vesicles show no obvious mass lesion. No pneumoperitoneum. Status post posterior fixation at the level of L5-S1 with discectomy changes. No suspicious bony lesion. IMPRESSION: Limited exam due to lack of IV contrast. 1. No bowel obstruction. Normal appendix. 2. Nonobstructing punctate bilateral renal stones. 3. Trace amount of air in the urinary bladder likely iatrogenic. Correlate with recent Mckeon catheterization. Electronically signed by: Ruddy Wade DO (03/19/2018 9:08 PM) [facility]
[2018-03-19 21:14] LABS: BASO % 1 % (0-3); EOS # 0.1 x10^3/uL (0.0-0.7); EOS % 3 % (0-3); HEMATOCRIT 32.4 % (39.0-53.0); HEMOGLOBIN 10.3 g/dL (13.0-17.5); LYMPH # 0.8 x10^3/uL (1.0-4.8); LYMPH % 23 % (24-48); MEAN CORPUSCULAR HEMOGLOBIN 20 pg (25-35); MEAN CORPUSCULAR HGB CONC 32 g/dL (31-37); MEAN CORPUSCULAR VOLUME 64 fL (79-100); MONO # 0.3 x10^3/uL (0.0-1.1); MONO % 9 % (0-9); NEUT # 2.2 x10^3uL (1.8-7.7); NEUT % 64 % (31-73); PLATELET COUNT 146 x10^3/uL (140-400); RED BLOOD COUNT 5.07 x10^6/uL (4.30-5.70); RED CELL DISTRIBUTION WIDTH 18.7 % (11.5-14.5); WHITE BLOOD COUNT 3.4 x10^3/uL (4.0-11.0)
--- NOTE | 2018-03-19 21:17 | PHYS DOC ---
Past Medical History Past Medical History: Anemia, Angina, Cancer, Depression, Diverticulosis, GERD , Hypothyroid, Lung Disease, Other Additional Past Medical Histor: PARKINSONS, LUNG CANCER, THROAT CA W/ RADIATION TX , TBI, IBS, DYSPHAGIA Past Surgical History: Cholecystectomy, Other Additional Past Surgical Histo: HERNIA REPAIR Alcohol Use: None Drug Use: None Adult General Chief Complaint Chief Complaint: ABDOMINAL PAIN HPI HPI Patient is a 62 year old male who presents with intractable pain. 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 He states that his throat is extremely sore with pain radiating down into his upper abdomen. He also feels slightly short of breath. He denies cough or fever. The patient is also dry. He states that it is extremely painful to eat or drink. The patient has been taking his Percocet with little relief of his pain. Review of Systems Review of Systems Constitutional: Denies fever or chills [] Eyes: Denies change in visual acuity, redness, or eye pain [] HENT: See history of present illness Respiratory: See history of present illness Cardiovascular: No additional information not addressed in HPI [] GI: See history of present illness : Denies dysuria or hematuria [] Musculoskeletal: Denies back pain or joint pain [] Integument: Denies rash or skin lesions [] Neurologic: Denies headache, focal weakness or sensory changes [] Endocrine: Denies polyuria or polydipsia [] All other systems were reviewed and found to be within normal limits, except as documented in this note. Current Medications Current Medications Current Medications Medications (Trade) Dose Ordered Sig/Darci Start Time Stop Time Status Last Admin Dose Admin Fentanyl Citrate (Fentanyl 2ml Vial) 75 mcg 1X ONCE 03/19/18 21:00 03/19/18 21:01 DC 03/19/18 21:10 75 MCG Ondansetron HCl (Zofran) 4 mg 1X ONCE 03/19/18 21:00 03/19/18 21:01 DC 03/19/18 21:09 4 MG Allergies Allergies Allergies Coded Allergies Type Severity Reaction Last Updated Verified gabapentin Allergy Intermediate 08/15/17 Yes ibuprofen Allergy Intermediate 08/17/17 Yes I S O L A T I O N *CONTACT* Allergy Unknown 02/26/18 Yes Physical Exam Physical Exam Constitutional: Well developed, well nourished, no acute distress, non-toxic appearance. [] HENT: Normocephalic, atraumatic, bilateral external ears normal, oropharynx dry and erythematous, no oral exudates, nose normal. [] Eyes: PERRLA, EOMI, conjunctiva normal, no discharge. [] Neck: Normal range of motion, no tenderness, supple, no stridor. [] Cardiovascular:Heart rate regular rhythm, no murmur [] Lungs & Thorax: Bilateral breath sounds clear to auscultation [] Abdomen: Bowel sounds normal, firm, diffuse tenderness Skin: Warm, dry, no erythema, no rash. [] Neurologic: Alert and oriented X 3, normal motor function, normal sensory function, no focal deficits noted. [] Psychologic: Affect normal, judgement normal, mood normal. [] Current Patient Data Vital Signs Vital Signs Date Time Temp Pulse Resp B/P (MAP) Pulse Ox O2 Delivery O2 Flow Rate FiO2 03/19/18 21:10 12 99 Room Air 03/19/18 19:50 98.5 51 128/85 (99) 98.5 Lab Values Laboratory Tests Test 03/19/18 20:36 03/19/18 21:03 White Blood Count 3.4 x10^3/uL (4.0-11.0) L Red Blood Count 5.07 x10^6/uL (4.30-5.70) Hemoglobin 10.3 g/dL (13.0-17.5) L Hematocrit 32.4 % (39.0-53.0) L Mean Corpuscular Volume 64 fL (79-100) L Mean Corpuscular Hemoglobin 20 pg (25-35) L Mean Corpuscular Hemoglobin Concent 32 g/dL (31-37) Red Cell Distribution Width 18.7 % (11.5-14.5) H Platelet Count 146 x10^3/uL (140-400) Neutrophils (%) (Auto) 64 % (31-73) Lymphocytes (%) (Auto) 23 % (24-48) L Monocytes (%) (Auto) 9 % (0-9) Eosinophils (%) (Auto) 3 % (0-3) Basophils (%) (Auto) 1 % (0-3) Neutrophils # (Auto) 2.2 x10^3uL (1.8-7.7) Lymphocytes # (Auto) 0.8 x10^3/uL (1.0-4.8) L Monocytes # (Auto) 0.3 x10^3/uL (0.0-1.1) Eosinophils # (Auto) 0.1 x10^3/uL (0.0-0.7) Basophils # (Auto) 0.0 x10^3/uL (0.0-0.2) Platelet Estimate Adequate (ADEQUATE) Hypochromasia Mod Poikilocytosis Slight Basophilic Stippling Present Anisocytosis Slight Microcytosis Mod Macrocytosis Sodium Level 140 mmol/L (136-145) Potassium Level 3.7 mmol/L (3.5-5.1) Chloride Level 102 mmol/L (98-107) Carbon Dioxide Level 35 mmol/L (21-32) H Anion Gap 3 (6-14) L Blood Urea Nitrogen 14 mg/dL (8-26) Creatinine 0.8 mg/dL (0.7-1.3) Estimated GFR (Cockcroft-Gault) 98.6 BUN/Creatinine Ratio 18 (6-20) Glucose Level 122 mg/dL (70-99) H Calcium Level 8.3 mg/dL (8.5-10.1) L Total Bilirubin 0.3 mg/dL (0.2-1.0) Aspartate Amino Transferase (AST) 19 U/L (15-37) Alanine Aminotransferase (ALT) 19 U/L (16-63) Alkaline Phosphatase 93 U/L (46-116) Total Protein 6.1 g/dL (6.4-8.2) L Albumin 2.6 g/dL (3.4-5.0) L Albumin/Globulin Ratio 0.7 (1.0-1.7) L Laboratory Tests 03/19/18 20:36 Laboratory Tests 03/19/18 21:03 EKG EKG [] Radiology/Procedures Radiology/Procedures []PATIENT: DU CARNESCOUNT: [id number]#: [id number] : 1955 LOCATION: ER AGE: 62 SEX: M EXAM STATUS: REG ER ORD. PHYSICIAN: HA CASTRO APRN REASON: diffuse abdominal pain PROCEDURE: CT ABDOMEN PELVIS WO CONTRAST PQRS Compliance statement: One or more of the following individualized dose reduction techniques were utilized for this examination: 1. Automated exposure control. 2. Adjustment of the mA and/or kV according to patient size. 3. Use of iterative reconstruction technique. Indication:diffuse abd pain today TECHNIQUE: CT abdomen and pelvis without IV contrast with multiplanar reformats. COMPARISON: 12/10/2017 FINDINGS: Limited exam due to lack of IV contrast. Heart is normal in size. No pericardial or pleural effusion. Bilateral nodular opacities are seen in the lung bases, new from prior study. Noncontrast appearance of the liver, spleen, pancreas, adrenals within normal limits. Status post cholecystectomy. Punctate nonobstructing bilateral renal stones. No hydronephrosis. No enlarged retroperitoneal or pelvic adenopathy. Diffuse atherosclerotic calcification seen of the abdominal aorta and bilateral iliac arteries. No free pelvic fluid or ascites. No bowel obstruction. Normal appendix. Trace amount of air is seen in the nondependent portion of the urinary bladder. No radiopaque stones in the bladder. Prostate and seminal vesicles show no obvious mass lesion. No pneumoperitoneum. Status post posterior fixation at the level of L5-S1 with discectomy changes. No suspicious bony lesion. IMPRESSION: Limited exam due to lack of IV contrast. 1. No bowel obstruction. Normal appendix. 2. Nonobstructing punctate bilateral renal stones. 3. Trace amount of air in the urinary bladder likely iatrogenic. Correlate with recent Mckeon catheterization. Electronically signed by: Ruddy Wade DO (03/19/2018 9:08 PM) [facility] DICTATED and SIGNED BY: RUDDY WADE DO DATE: 03/19/182102 Course & Med Decision Making Course & Med Decision Making Pertinent Labs and Imaging studies reviewed. (See chart for details) []Patient's imaging was negative for an acute abdominal process. The patient will be admitted to Dr. Beltre for treatment of this intractable pain. The patient is in agreement with this plan. Dragon Disclaimer Dragon Disclaimer This electronic medical record was generated, in whole or in part, using a voice recognition dictation system. Departure Departure Impression: Primary Impression: Intractable pain Disposition: ADMITTED INPATIENT Admitting Physician: Heriberto Ho Condition: GOOD Referrals: MARISA MOODY (PCP) HA CASTRO [employer]ESS[employer] Mar 19, 2018 21:17
[2018-03-19 21:28] LABS: CALCIUM 8.3 mg/dL (8.5-10.1); CREATININE 0.8 mg/dL (0.7-1.3); GFR 98.6; POTASSIUM 3.7 mmol/L (3.5-5.1)
[2018-03-19 21:34] LABS: ALBUMIN 2.6 g/dL (3.4-5.0); ALBUMIN/GLOBULIN RATIO 0.7 (1.0-1.7); TOTAL BILIRUBIN 0.3 mg/dL (0.2-1.0); TOTAL PROTEIN 6.1 g/dL (6.4-8.2)
[2018-03-19 21:36] LABS: PLT ESTIMATE ADEQUATE (ADEQUATE)
[2018-03-19 21:37] LABS: ANISOCYTOSIS SLIGHT; HYPOCHROMIA MOD; POIKILOCYTOSIS SLIGHT
[2018-03-19 21:38] LABS: MICROCYTOSIS MOD
[2018-03-19] MEDS ORDERED: ONDANSETRON PF 4 MG/2 ML VIAL. IV PRN (22:15)
[2018-03-19] MEDS ORDERED: ACETAMINOPHEN 325 MG TABLET. PO PRN (22:15)
[2018-03-19 23:05] VITALS: BP 124/46
[2018-03-19] MEDS: IV NORMAL SALINE 1000ML BAG 1,000 ML IV SCH (23:37)
[2018-03-19] MEDS: MORPHINE SULFATE 4 MG/ML VIAL. IV PRN (23:41)
[2018-03-20 02:53] VITALS: BP 147/75
[2018-03-20 04:09] LABS: BASO % 1 % (0-3); EOS # 0.1 x10^3/uL (0.0-0.7); EOS % 4 % (0-3); HEMATOCRIT 30.9 % (39.0-53.0); HEMOGLOBIN 9.8 g/dL (13.0-17.5); LYMPH # 0.8 x10^3/uL (1.0-4.8); LYMPH % 25 % (24-48); MEAN CORPUSCULAR HEMOGLOBIN 21 pg (25-35); MEAN CORPUSCULAR HGB CONC 32 g/dL (31-37); MEAN CORPUSCULAR VOLUME 64 fL (79-100); MONO # 0.3 x10^3/uL (0.0-1.1); MONO % 9 % (0-9); NEUT # 2.1 x10^3uL (1.8-7.7); NEUT % 61 % (31-73); PLATELET COUNT 134 x10^3/uL (140-400); RED CELL DISTRIBUTION WIDTH 19.2 % (11.5-14.5); WHITE BLOOD COUNT 3.4 x10^3/uL (4.0-11.0)
[2018-03-20 04:20] LABS: CALCIUM 8.6 mg/dL (8.5-10.1); CREATININE 0.7 mg/dL (0.7-1.3); POTASSIUM 3.9 mmol/L (3.5-5.1)
[2018-03-20] MEDS: MORPHINE SULFATE 4 MG/ML VIAL. IV PRN (05:43)
[2018-03-20] MEDS: fentaNYL PF VIAL 100 MCG/2 ML VIAL IV PRN ×2 (07:13→14:01)
[2018-03-20 07:15] VITALS: BP 144/74
[2018-03-20] MEDS: IPRATRPIUM/ALBUTEROL 0.5/2.5MG 3 ML NEBU. NEB SCH ×4 (07:38→20:04)
[2018-03-20] MEDS ORDERED: ONDANSETRON ODT 4 MG TAB.RAPDIS. PO PRN (08:30)
[2018-03-20] MEDS ORDERED: LORazepam 0.5 MG TABLET PO PRN (08:30)
[2018-03-20] MEDS ORDERED: ACETAMINOPHEN 325 MG TABLET. PO PRN (08:30)
[2018-03-20] MEDS ORDERED: NITROGLYCERIN SUBLINGUAL 0.4 MG BOTTLE OF 25. SL PRN (08:30)
[2018-03-20] MEDS ORDERED: ONDANSETRON PF 4 MG/2 ML VIAL. IV PRN (08:30)
[2018-03-20] MEDS ORDERED: MORPHINE SULFATE 20 MG/ML CONC SOLUTION. SL PRN (08:45)
[2018-03-20] MEDS: MINERAL OIL/PETROLATUM TOPICAL CREAM 113GM JAR. TP SCH ×2 (09:00→21:00)
[2018-03-20] MEDS: LEVOTHYROXINE 25 MCG TABLET. PO SCH ×2 (09:00→13:54)
[2018-03-20] MEDS: IV NORMAL SALINE 1000ML BAG 1,000 ML IV SCH ×2 (09:07→16:51)
[2018-03-20] MEDS: POLYETHYLENE GLYCOL 3350 17 GM PACKET. PO SCH (09:21)
[2018-03-20] MEDS: FLUDROCORTISONE 0.1 MG TABLET PO SCH (09:22)
[2018-03-20] MEDS: DICYCLOMINE HCL 10 MG CAPSULE PO SCH ×3 (09:22→21:17)
[2018-03-20] MEDS: FLUPHENAZINE HCL 2.5 MG TABLET. PO SCH ×2 (09:22→21:18)
[2018-03-20] MEDS: FLUoxetine HCL 20 MG CAPSULE PO SCH (09:22)
[2018-03-20] MEDS: DULoxetine HCL 30 MG CAPSULE.DR PO SCH (09:22)
[2018-03-20] MEDS: FERROUS SULFATE 325 MG TABLET. PO SCH (09:22)
[2018-03-20] MEDS: CHOLECALCIFEROL (VITAMIN D3) 1,000 UNIT TABLET PO SCH (09:22)
[2018-03-20] MEDS: THIAMINE 100 MG TABLET. PO SCH (09:22)
[2018-03-20] MEDS: oxyCODONE/APAP 5/325 1 TAB TABLET PO SCH ×2 (09:22→21:19)
[2018-03-20] MEDS: fentaNYL 25MCG/HR PATCH 1 PATCH PATCH.TD72 TD SCH (09:22)
[2018-03-20] MEDS: PANTOPRAZOLE 40 MG TABLET.DR. PO SCH (09:23)
[2018-03-20] MEDS: BACLOFEN 10 MG TABLET. PO SCH ×3 (09:23→21:18)
[2018-03-20] MEDS: PREGABALIN 75 MG CAPSULE PO SCH ×2 (09:23→21:17)
--- NOTE | 2018-03-20 10:33 | PDOC1 ---
History and Physical Date of Admission Date of Admission DATE: 03/20/18 TIME: 10:28 Identification/Chief Complaint Chief Complaint Throat pain, chest pain Source Source: Caregiver, Chart review, Patient History of Present Illness History of Present Illness 62-year-old male, known to me, SNU resident at [facility], diagnosis of throat cancer this year and is undergoing radiation therapy here and has completed a course last Sunday. Maybe has gotten a total of 31 doses of radiation therapy. Comes in because of throat pain/chest pain that he claims was worse last Sunday. He has odynophagia and dysphagia. THis could most likely be radiation esophagitis. I will consult GI. So far on some soft mechanical diet in SNU and will continue that pending GI eval Will add PTOT The rest of the labs at home meds will continue and is otherwise unremarkable. Discussed with RN at bedside Past Medical History Cardiovascular: HTN Pulmonary: No pertinent hx CENTRAL NERVOUS SYSTEM: Other GI: GERD, Irritable bowel disease Heme/Onc: No pertinent hx Psych: Depression Musculoskeletal: low back pain, Osteoarthritis Rheumatologic: No pertinent hx Infectious disease: No pertinent hx Renal/: No pertinent hx Endocrine: Hypothyroidism Past Surgical History Past Surgical History: Cholecystectomy, Hernia Repair, Other Family History Family History: Cancer, Coronary Artery Disease Social History Smoke: No ALCOHOL: none Drugs: None Current Problem List Problem List Problems Medical Problems: (1) Intractable pain Status: Acute Current Medications Current Medications Current Medications Fentanyl Citrate (Fentanyl 2ml Vial) 75 mcg 1X ONCE IV Last administered on at 21:10; Start 03/19/18 at 21:00; Stop 03/19/18 at 21:01; Status DC Ondansetron HCl (Zofran) 4 mg 1X ONCE IV Last administered on 03/19/18at 21:09 ; Start 03/19/18 at 21:00; Stop 03/19/18 at 21:01; Status DC Ondansetron HCl (Zofran) 4 mg PRN Q8HRS PRN IV NAUSEA/VOMITING; Start 03/19/18 at 22:15; Stop 03/20/18 at 08:28; Status DC Morphine Sulfate (Morphine Sulfate) 4 mg PRN Q2HR PRN IV PAIN Last administered on 03/20/18at 05:43; Start 03/19/18 at 22:15; Stop 03/20/18 at 22:14 Fentanyl Citrate (Fentanyl 2ml Vial) 50 mcg PRN Q2HR PRN IV PAIN Last administered on 03/20/18 07:13; Start 03/19/18 at 22:15; Stop 03/20/18 at 22:14 Sodium Chloride 1,000 ml @ 125 mls/hr Q8H IV Last administered on 03/20/18at 09 :07; Start 03/19/18 at 22:15; Stop 03/20/18 at 22:14 Acetaminophen (Tylenol) 650 mg PRN Q4HRS PRN PO FEVER; Start 03/19/18 at 22:15 ; Stop 03/20/18 at 08:30; Status DC Albuterol/ Ipratropium (Duoneb) 3 ml RTQID NEB Last administered on 03/20/18at 07:38; Start 03/20/18 at 08:00; Stop 03/21/18 at 07:59 Ondansetron HCl (Zofran) 4 mg PRN Q6HRS PRN IV NAUSEA/VOMITING; Start 03/20/18 at 08:30 Acetaminophen (Tylenol) 650 mg PRN Q6HRS PRN PO MILD PAIN / TEMP; Start at 08:30 Atorvastatin Calcium (Lipitor) 10 mg QHS PO ; Start 03/20/18 at 21:00 Baclofen (Lioresal) 5 mg TID PO Last administered on 03/20/18at 09:23; Start at 09:00 Vitamin D (Vitamin D3) 1,000 unit DAILY PO Last administered on 03/20/18at 09:22 ; Start 03/20/18 at 09:00 Duloxetine HCl (Cymbalta) 30 mg DAILY PO Last administered on 03/20/18 09:22; Start 03/20/18 at 09:00 Fentanyl (Duragesic 25mcg/ Hr Patch) 1 patch Q72H TD Last administered on 09:22; Start 03/20/18 at 09:00 Ferrous Sulfate (Feosol) 325 mg DAILY PO Last administered on 03/20/18at 09:22; Start 03/20/18 at 09:00 Fludrocortisone Acetate (Florinef) 0.1 mg DAILY PO Last administered on at 09:22; Start 03/20/18 at 09:00 Lorazepam (Ativan) 1 mg PRN Q4HRS PRN PO ANXIETY / AGITATION; Start 03/20/18 at 08:30 Nitroglycerin (Nitrostat) 0.4 mg PRN Q5MIN PRN SL CHEST PAIN; Start 03/20/18 at 08:30 Ondansetron HCl (Zofran Odt) 4 mg PRN Q6HRS PRN PO NAUSEA/VOMITING; Start 03/20 at 08:30 Oxycodone/ Acetaminophen (Percocet 5/325) 1 tab BID PO Last administered on at 09:22; Start 03/20/18 at 09:00 Oxycodone/ Acetaminophen (Percocet 5/325) 1 tab PRN DAILY PRN PO PAIN; Start at 08:30 Pantoprazole Sodium (Protonix) 40 mg DAILYAC PO Last administered on 03/20/18at 09:23; Start 03/20/18 at 09:00 Pregabalin (Lyrica) 75 mg BID PO Last administered on 03/20/18at 09:23; Start at 09:00 Dicyclomine HCl (Bentyl) 20 mg TID PO Last administered on 03/20/18at 09:22; Start 03/20/18 at 09:00 Fluoxetine HCl (PROzac) 80 mg DAILY PO Last administered on 03/20/18at 09:22; Start 03/20/18 at 09:00 Fluphenazine HCl (Prolixin) 2.5 mg BID PO Last administered on 03/20/18at 09:22 ; Start 03/20/18 at 09:00 Levothyroxine Sodium (Synthroid) 25 mcg DAILY06 PO ; Start 03/20/18 at 09:00 Multi-Ingred Cream/Lotion/Oil/ Oint (Hydrocerin Cream) 1 ector BID TP ; Start at 09:00 Morphine Sulfate (Roxanol Conc) 10 mg PRN Q1HR PRN SL PAIN; Start 03/20/18 at 08:45 Polyethylene Glycol (miraLAX PACKET) 17 gm DAILY PO Last administered on at 09:21; Start 03/20/18 at 09:00 Thiamine Mononitrate (Vitamin B-1) 100 mg DAILY PO Last administered on at 09:22; Start 03/20/18 at 09:00 Trazodone HCl (Desyrel) 150 mg QHS PO ; Start 03/20/18 at 21:00 Active Scripts Active Reported Tylenol (Acetaminophen) 325 Mg Tablet 650 Mg PO Q6HRS PRN Miralax (Polyethylene Glycol 3350) 17 Gm Powd.pack 1 Packet PO DAILY Lipitor (Atorvastatin Calcium) 10 Mg Tablet 1 Tab PO QHS Cymbalta (Duloxetine Hcl) 30 Mg Capsule.dr 1 Cap PO DAILY Ativan (Lorazepam) 0.5 Mg Tablet 1 Mg PO Q4HRS PRN Percocet 5-325 Mg Tablet (Oxycodone/Acetaminophen) 1 Each Tablet 1 Tab PO BID FENTANYL 25mcg/hr (Fentanyl) 1 Each Patch.td72 1 Patch TD Q72H Aquaphor Ointment (Mineral Oil/Hydrophil Petrolat) 396 Gm Oint...g. 396 Gm TP BID Zofran Odt (Ondansetron) 4 Mg Tab.rapdis 1 Tab SL Q6HRS PRN Morphine Sulfate 20 Mg/5 Ml Solution 20 Mg PO 0.5CC HOURLY Percocet 5-325 Mg Tablet (Oxycodone/Acetaminophen) 1 Each Tablet 1 Tab PO DAILY PRN NITROGLYCERIN SubLingual (Nitroglycerin) 0.4 Mg Tab.subl 0.4 Mg SL PRN Q5MIN PRN Fluphenazine Hcl 5 Mg Tablet 2.5 Mg PO BID Dicyclomine Hcl 20 Mg Tablet 1 Tab PO TID Vitamin D3 (Cholecalciferol (Vitamin D3)) 1,000 Unit Tablet 1,000 Unit PO DAILY Vitamin B-1 (Thiamine Mononitrate) 100 Mg Tablet 100 Mg PO DAILY Trazodone Hcl 150 Mg Tablet 150 Mg PO HS Prozac (Fluoxetine Hcl) 40 Mg Capsule 80 Mg PO DAILY Lyrica (Pregabalin) 75 Mg Capsule 75 Mg PO BID Protonix (Pantoprazole Sodium) 40 Mg Tablet.dr 40 Mg PO DAILY Levothyroxine Sodium 25 Mcg Tablet 25 Mcg PO DAILYAC Ketoconazole 120 Ml Shampoo 1 Ector TP WEEKLY ON SUNDAY Fludrocortisone Acetate 0.1 Mg Tablet 0.1 Mg PO DAILY Ferrous Sulfate 325 Mg Tablet 325 Mg PO DAILY Baclofen 10 Mg Tablet 5 Mg PO TID Aspirin 81 Mg Tab.chew 81 Mg PO DAILY Allergies Allergies: Coded Allergies: gabapentin (Verified Allergy, Intermediate, 08/15/17) Info from [place] paperwork. ibuprofen (Verified Allergy, Intermediate, 08/17/17) TOLERATES KETOROLAC (PER PRIOR VISIT) Info. from [place] papers. I S O L A T I O N *CONTACT* (Verified Allergy, Unknown, 02/26/18) mrsa ROS Review of System As per history of present illness, the rest of ROS 14 point negative Physical Exam General: Alert, Oriented X3, Cooperative, No acute distress, Other (cachectic looking but not in distress) HEENT: Atraumatic, PERRLA Lungs: Clear to auscultation, Normal air movement Heart: S1S2, RRR, no thrills, no rubs, no gallops, no murmurs Cardiovascular: S1, S2 Abdomen: Normal bowel sounds, Soft, No tenderness, No hepatosplenomegaly, No masses Male Genitals Exam: normal genitalia, normal prostate Rectal Exam: not examined PELVIC: Nml ext genitalia Extremities: No clubbing, No cyanosis, No edema, Normal pulses, No tenderness/ swelling Skin: No rashes, No breakdown, No significant lesion Neuro: Normal gait, Normal speech, Strength at 5/5 X4 ext, Normal tone, Sensation intact, Cranial nerves 3-12 NL, Reflexes 2+ Psych/Mental Status: Mental status NL, Mood NL Vitals Vitals Vital Signs Date Time Temp Pulse Resp B/P (MAP) Pulse Ox O2 Delivery O2 Flow Rate FiO2 03/20/18 09:22 Room Air 03/20/18 09:22 94 03/20/18 09:09 2.0 03/20/18 07:15 98.2 48 18 144/74 (97) 98.2 Labs Labs Laboratory Tests Test 03/19/18 20:36 03/19/18 21:03 03/20/18 03:10 White Blood Count 3.4 x10^3/uL (4.0-11.0) 3.4 x10^3/uL (4.0-11.0) Red Blood Count 5.07 x10^6/uL (4.30-5.70) 4.80 x10^6/uL (4.30-5.70) Hemoglobin 10.3 g/dL (13.0-17.5) 9.8 g/dL (13.0-17.5) Hematocrit 32.4 % (39.0-53.0) 30.9 % (39.0-53.0) Mean Corpuscular Volume 64 fL (79-100) 64 fL (79-100) Mean Corpuscular Hemoglobin 20 pg (25-35) 21 pg (25-35) Mean Corpuscular Hemoglobin Concent 32 g/dL (31-37) 32 g/dL (31-37) Red Cell Distribution Width 18.7 % (11.5-14.5) 19.2 % (11.5-14.5) Platelet Count 146 x10^3/uL (140-400) 134 x10^3/uL (140-400) Neutrophils (%) (Auto) 64 % (31-73) 61 % (31-73) Lymphocytes (%) (Auto) 23 % (24-48) 25 % (24-48) Monocytes (%) (Auto) 9 % (0-9) 9 % (0-9) Eosinophils (%) (Auto) 3 % (0-3) 4 % (0-3) Basophils (%) (Auto) 1 % (0-3) 1 % (0-3) Neutrophils # (Auto) 2.2 x10^3uL (1.8-7.7) 2.1 x10^3uL (1.8-7.7) Lymphocytes # (Auto) 0.8 x10^3/uL (1.0-4.8) 0.8 x10^3/uL (1.0-4.8) Monocytes # (Auto) 0.3 x10^3/uL (0.0-1.1) 0.3 x10^3/uL (0.0-1.1) Eosinophils # (Auto) 0.1 x10^3/uL (0.0-0.7) 0.1 x10^3/uL (0.0-0.7) Basophils # (Auto) 0.0 x10^3/uL (0.0-0.2) 0.0 x10^3/uL (0.0-0.2) Platelet Estimate Adequate (ADEQUATE) Hypochromasia Mod Poikilocytosis Slight Basophilic Stippling Present Anisocytosis Slight Microcytosis Mod Macrocytosis Sodium Level 140 mmol/L (136-145) 141 mmol/L (136-145) Potassium Level 3.7 mmol/L (3.5-5.1) 3.9 mmol/L (3.5-5.1) Chloride Level 102 mmol/L (98-107) 105 mmol/L (98-107) Carbon Dioxide Level 35 mmol/L (21-32) 35 mmol/L (21-32) Anion Gap 3 (6-14) 1 (6-14) Blood Urea Nitrogen 14 mg/dL (8-26) 12 mg/dL (8-26) Creatinine 0.8 mg/dL (0.7-1.3) 0.7 mg/dL (0.7-1.3) Estimated GFR (Cockcroft-Gault) 98.6 115.0 BUN/Creatinine Ratio 18 (6-20) Glucose Level 122 mg/dL (70-99) 88 mg/dL (70-99) Calcium Level 8.3 mg/dL (8.5-10.1) 8.6 mg/dL (8.5-10.1) Total Bilirubin 0.3 mg/dL (0.2-1.0) Aspartate Amino Transf (AST/SGOT) 19 U/L (15-37) Alanine Aminotransferase (ALT/SGPT) 19 U/L (16-63) Alkaline Phosphatase 93 U/L (46-116) Total Protein 6.1 g/dL (6.4-8.2) Albumin 2.6 g/dL (3.4-5.0) Albumin/Globulin Ratio 0.7 (1.0-1.7) Laboratory Tests Test 03/19/18 20:36 03/19/18 21:03 03/20/18 03:10 White Blood Count 3.4 x10^3/uL (4.0-11.0) 3.4 x10^3/uL (4.0-11.0) Red Blood Count 5.07 x10^6/uL (4.30-5.70) 4.80 x10^6/uL (4.30-5.70) Hemoglobin 10.3 g/dL (13.0-17.5) 9.8 g/dL (13.0-17.5) Hematocrit 32.4 % (39.0-53.0) 30.9 % (39.0-53.0) Mean Corpuscular Volume 64 fL (79-100) 64 fL (79-100) Mean Corpuscular Hemoglobin 20 pg (25-35) 21 pg (25-35) Mean Corpuscular Hemoglobin Concent 32 g/dL (31-37) 32 g/dL (31-37) Red Cell Distribution Width 18.7 % (11.5-14.5) 19.2 % (11.5-14.5) Platelet Count 146 x10^3/uL (140-400) 134 x10^3/uL (140-400) Neutrophils (%) (Auto) 64 % (31-73) 61 % (31-73) Lymphocytes (%) (Auto) 23 % (24-48) 25 % (24-48) Monocytes (%) (Auto) 9 % (0-9) 9 % (0-9) Eosinophils (%) (Auto) 3 % (0-3) 4 % (0-3) Basophils (%) (Auto) 1 % (0-3) 1 % (0-3) Neutrophils # (Auto) 2.2 x10^3uL (1.8-7.7) 2.1 x10^3uL (1.8-7.7) Lymphocytes # (Auto) 0.8 x10^3/uL (1.0-4.8) 0.8 x10^3/uL (1.0-4.8) Monocytes # (Auto) 0.3 x10^3/uL (0.0-1.1) 0.3 x10^3/uL (0.0-1.1) Eosinophils # (Auto) 0.1 x10^3/uL (0.0-0.7) 0.1 x10^3/uL (0.0-0.7) Basophils # (Auto) 0.0 x10^3/uL (0.0-0.2) 0.0 x10^3/uL (0.0-0.2) Platelet Estimate Adequate (ADEQUATE) Hypochromasia Mod Poikilocytosis Slight Basophilic Stippling Present Anisocytosis Slight Microcytosis Mod Macrocytosis Sodium Level 140 mmol/L (136-145) 141 mmol/L (136-145) Potassium Level 3.7 mmol/L (3.5-5.1) 3.9 mmol/L (3.5-5.1) Chloride Level 102 mmol/L (98-107) 105 mmol/L (98-107) Carbon Dioxide Level 35 mmol/L (21-32) 35 mmol/L (21-32) Anion Gap 3 (6-14) 1 (6-14) Blood Urea Nitrogen 14 mg/dL (8-26) 12 mg/dL (8-26) Creatinine 0.8 mg/dL (0.7-1.3) 0.7 mg/dL (0.7-1.3) Estimated GFR (Cockcroft-Gault) 98.6 115.0 BUN/Creatinine Ratio 18 (6-20) Glucose Level 122 mg/dL (70-99) 88 mg/dL (70-99) Calcium Level 8.3 mg/dL (8.5-10.1) 8.6 mg/dL (8.5-10.1) Total Bilirubin 0.3 mg/dL (0.2-1.0) Aspartate Amino Transf (AST/SGOT) 19 U/L (15-37) Alanine Aminotransferase (ALT/SGPT) 19 U/L (16-63) Alkaline Phosphatase 93 U/L (46-116) Total Protein 6.1 g/dL (6.4-8.2) Albumin 2.6 g/dL (3.4-5.0) Albumin/Globulin Ratio 0.7 (1.0-1.7) VTE Prophylaxis Ordered VTE Prophylaxis Devices: Yes VTE Pharmacological Prophylaxi: Yes Assessment/Plan Assessment/Plan THroat/chest pain in a cancer patient who has received radiation therapy-need to rule out her most likely radiation esophagitis Throat cancer status post completion of radiation therapy Anemia of cancer Cachexia Hypertension, controlled Moderate to severe PCM History of cardiac hx - otherwise chronic stable PLAN: Admit 2 midnights Soft Mechanical diet PT OT HOme meds have been reconciled GI consult Supportive care Full code We'll go back to [facility] on discharge MIS BAILEY MD Mar 20, 2018 10:33
[2018-03-20 11:06] VITALS: BP 139/71
--- NOTE | 2018-03-20 11:34 | PDOC2 ---
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 We have seen in the past re: chronic dysphagia and chronic abd pain. This time, has odynophagia that has been much worse since yesterday. Tolerates liquids but says food hurts too much. Denies n/v, diarrhea, or constipation. Abd pain the same. 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 Says stooling normally. S/p cholecystectomy. Previous abd doppler w/ SMA narrowing. EGD in 2011 w/ Dr. Gill for food bolus - no esophageal stricture, mild distal esophagitis. Has reports colonoscopy within 1 -2 years and says colon resection recommended. BE (after that) showed diverticulosis and spasticity. H/o Hep C/elevated antibody 2016. H/o HUBERT. PMH: PMH: per HPI plus HTN, PAD, TBI, depression, back pain, OA, hypothyroidism, DM, lumbar fusion, left inguinal hernia repair, lymph node biopsy FH: Family History: Cancer Social History: Smoke: No ALCOHOL: none Drugs: None ROS: Difficult to obtain - dysphagia, weight loss. Vitals: Vitals: Vital Signs Date Time Temp Pulse Resp B/P (MAP) Pulse Ox O2 Delivery O2 Flow Rate FiO2 03/20/18 11:13 Room Air 03/20/18 09:22 94 03/20/18 09:09 2.0 03/20/18 07:15 98.2 48 18 144/74 (97) 98.2 Labs: Labs: Laboratory Tests Test 03/19/18 20:36 03/19/18 21:03 03/20/18 03:10 White Blood Count 3.4 x10^3/uL (4.0-11.0) 3.4 x10^3/uL (4.0-11.0) Red Blood Count 5.07 x10^6/uL (4.30-5.70) 4.80 x10^6/uL (4.30-5.70) Hemoglobin 10.3 g/dL (13.0-17.5) 9.8 g/dL (13.0-17.5) Hematocrit 32.4 % (39.0-53.0) 30.9 % (39.0-53.0) Mean Corpuscular Volume 64 fL (79-100) 64 fL (79-100) Mean Corpuscular Hemoglobin 20 pg (25-35) 21 pg (25-35) Mean Corpuscular Hemoglobin Concent 32 g/dL (31-37) 32 g/dL (31-37) Red Cell Distribution Width 18.7 % (11.5-14.5) 19.2 % (11.5-14.5) Platelet Count 146 x10^3/uL (140-400) 134 x10^3/uL (140-400) Neutrophils (%) (Auto) 64 % (31-73) 61 % (31-73) Lymphocytes (%) (Auto) 23 % (24-48) 25 % (24-48) Monocytes (%) (Auto) 9 % (0-9) 9 % (0-9) Eosinophils (%) (Auto) 3 % (0-3) 4 % (0-3) Basophils (%) (Auto) 1 % (0-3) 1 % (0-3) Neutrophils # (Auto) 2.2 x10^3uL (1.8-7.7) 2.1 x10^3uL (1.8-7.7) Lymphocytes # (Auto) 0.8 x10^3/uL (1.0-4.8) 0.8 x10^3/uL (1.0-4.8) Monocytes # (Auto) 0.3 x10^3/uL (0.0-1.1) 0.3 x10^3/uL (0.0-1.1) Eosinophils # (Auto) 0.1 x10^3/uL (0.0-0.7) 0.1 x10^3/uL (0.0-0.7) Basophils # (Auto) 0.0 x10^3/uL (0.0-0.2) 0.0 x10^3/uL (0.0-0.2) Platelet Estimate Adequate (ADEQUATE) Hypochromasia Mod Poikilocytosis Slight Basophilic Stippling Present Anisocytosis Slight Microcytosis Mod Macrocytosis Sodium Level 140 mmol/L (136-145) 141 mmol/L (136-145) Potassium Level 3.7 mmol/L (3.5-5.1) 3.9 mmol/L (3.5-5.1) Chloride Level 102 mmol/L (98-107) 105 mmol/L (98-107) Carbon Dioxide Level 35 mmol/L (21-32) 35 mmol/L (21-32) Anion Gap 3 (6-14) 1 (6-14) Blood Urea Nitrogen 14 mg/dL (8-26) 12 mg/dL (8-26) Creatinine 0.8 mg/dL (0.7-1.3) 0.7 mg/dL (0.7-1.3) Estimated GFR (Cockcroft-Gault) 98.6 115.0 BUN/Creatinine Ratio 18 (6-20) Glucose Level 122 mg/dL (70-99) 88 mg/dL (70-99) Calcium Level 8.3 mg/dL (8.5-10.1) 8.6 mg/dL (8.5-10.1) Total Bilirubin 0.3 mg/dL (0.2-1.0) Aspartate Amino Transf (AST/SGOT) 19 U/L (15-37) Alanine Aminotransferase (ALT/SGPT) 19 U/L (16-63) Alkaline Phosphatase 93 U/L (46-116) Total Protein 6.1 g/dL (6.4-8.2) Albumin 2.6 g/dL (3.4-5.0) Albumin/Globulin Ratio 0.7 (1.0-1.7) Allergies: Coded Allergies: gabapentin (Verified Allergy, Intermediate, 08/15/17) Info from [place]. ibuprofen (Verified Allergy, Intermediate, 08/17/17) TOLERATES KETOROLAC (PER PRIOR VISIT) Info. from [place]. I S O L A T I O N *CONTACT* (Verified Allergy, Unknown, 02/26/18) mrsa Medications: Current Medications Medications (Trade) Dose Ordered Sig/Darci Route PRN Reason Start Time Stop Time Status Last Admin Dose Admin Fentanyl Citrate (Fentanyl 2ml Vial) 75 mcg 1X ONCE IV 03/19/18 21:00 03/19/18 21:01 DC 03/19/18 21:10 Ondansetron HCl (Zofran) 4 mg 1X ONCE IV 03/19/18 21:00 03/19/18 21:01 DC 03/19/18 21:09 Morphine Sulfate (Morphine Sulfate) 4 mg PRN Q2HR PRN IV PAIN 03/19/18 22:15 03/20/18 22:14 03/20/18 05:43 Fentanyl Citrate (Fentanyl 2ml Vial) 50 mcg PRN Q2HR PRN IV PAIN 03/19/18 22:15 03/20/18 22:14 03/20/18 07:13 Sodium Chloride 1,000 ml @ 125 mls/hr Q8H IV 03/19/18 22:15 03/20/18 22:14 03/20/18 09:07 Albuterol/ Ipratropium (Duoneb) 3 ml RTQID NEB 03/20/18 08:00 03/21/18 07:59 03/20/18 11:13 Baclofen (Lioresal) 5 mg TID PO 03/20/18 09:00 03/20/18 09:23 Vitamin D (Vitamin D3) 1,000 unit DAILY PO 03/20/18 09:00 03/20/18 09:22 Duloxetine HCl (Cymbalta) 30 mg DAILY PO 03/20/18 09:00 03/20/18 09:22 Fentanyl (Duragesic 25mcg/ Hr Patch) 1 patch Q72H TD 03/20/18 09:00 03/20/18 09:22 Ferrous Sulfate (Feosol) 325 mg DAILY PO 03/20/18 09:00 03/20/18 09:22 Fludrocortisone Acetate (Florinef) 0.1 mg DAILY PO 03/20/18 09:00 03/20/18 09:22 Oxycodone/ Acetaminophen (Percocet 5/325) 1 tab BID PO 03/20/18 09:00 03/20/18 09:22 Pantoprazole Sodium (Protonix) 40 mg DAILYAC PO 03/20/18 09:00 03/20/18 09:23 Pregabalin (Lyrica) 75 mg BID PO 03/20/18 09:00 03/20/18 09:23 Dicyclomine HCl (Bentyl) 20 mg TID PO 03/20/18 09:00 03/20/18 09:22 Fluoxetine HCl (PROzac) 80 mg DAILY PO 03/20/18 09:00 03/20/18 09:22 Fluphenazine HCl (Prolixin) 2.5 mg BID PO 03/20/18 09:00 03/20/18 09:22 Polyethylene Glycol (miraLAX PACKET) 17 gm DAILY PO 03/20/18 09:00 03/20/18 09:21 Thiamine Mononitrate (Vitamin B-1) 100 mg DAILY PO 03/20/18 09:00 03/20/18 09:22 Imaging: Imaging: CT A/P w/o contrast IMPRESSION: Limited exam due to lack of IV contrast. 1. No bowel obstruction. Normal appendix. 2. Nonobstructing punctate bilateral renal stones. 3. Trace amount of air in the urinary bladder likely iatrogenic. Correlate with recent Mckeon catheterization. PE: GEN: NAD, was asleep HEENT: Atraumatic, PERRL LUNGS: CTAB HEART: RRR ABD: chronic discomfort, soft, BS+ EXTREMITY: No edema SKIN: No rashes, no jaundice NEURO/PSYCH: quiet - takes a long time to respond, drowsy A/P: A/P: Tonsillar and neck cancer w/ recent radiation Odynophagia, chronic dysphagia Chronic abd pain Diverticulosis CRC screen - recent BE and colonoscopy S/p cholecystectomy H/o elevated Hep C Ab -- Will review w/ Dr. Mary - ?GI cocktail ?empiric fluconazole ?EGD Agree w/ PPI, supportive care. JULIAN REGAN Mar 20, 2018 11:33
[2018-03-20] MEDS: LIDO:MAALOX 1:1 20 ML SINGLE DOSE. PO PRN (13:54)
[2018-03-20] MEDS: NYSTATIN 100,000 UNITS/ML 5 ML ORAL.SUSP. SWSW SCH ×3 (13:54→21:17)
[2018-03-20 15:05] VITALS: BP 131/76
[2018-03-20 19:00] VITALS: BP 169/74
[2018-03-20] MEDS: ATORVASTATIN CALCIUM 10 MG TABLET. PO SCH (21:18)
[2018-03-20] MEDS: traZODone 50 MG TABLET. PO SCH (21:18)
[2018-03-20 23:00] VITALS: BP 153/62
[2018-03-21 03:00] VITALS: BP 100/80
[2018-03-21 07:00] VITALS: BP 162/65
[2018-03-21] MEDS: IPRATRPIUM/ALBUTEROL 0.5/2.5MG 3 ML NEBU. NEB SCH (07:19)
[2018-03-21] MEDS: MINERAL OIL/PETROLATUM TOPICAL CREAM 113GM JAR. TP SCH ×2 (09:00→20:56)
--- NOTE | 2018-03-21 09:12 | PDOC ---
Subjective: Subjective: Odynophagia might be a little better. Is eating some but not a lot. Doesn't want an EGD right now. Objective: Vital Signs: Vital Signs Date Time Temp Pulse Resp B/P (MAP) Pulse Ox O2 Delivery O2 Flow Rate FiO2 03/21/18 07:20 89 Room Air 03/21/18 07:00 97.9 63 18 162/65 (97) 97.9 03/20/18 09:09 2.0 PE: GEN: NAD, biscuits and gravy half-eaten LUNGS: CTAB HEART: RRR ABD: chronic tenderness - stable NEURO/PSYCH: doesn't say much per usual A/P: Odynophagia - better? -tonsillar/neck cancer w/ radiation -empiric anti-fungal started yesterday -- He declines EGD at this time. Continue Nystatin, PPI, GI cocktail, and ADAT. JULIAN REGAN Mar 21, 2018 09:12
[2018-03-21] MEDS: DULoxetine HCL 30 MG CAPSULE.DR PO SCH (10:11)
[2018-03-21] MEDS: THIAMINE 100 MG TABLET. PO SCH (10:11)
[2018-03-21] MEDS: PREGABALIN 75 MG CAPSULE PO SCH ×2 (10:11→20:55)
[2018-03-21] MEDS: oxyCODONE/APAP 5/325 1 TAB TABLET PO SCH ×2 (10:13→20:55)
[2018-03-21] MEDS: FERROUS SULFATE 325 MG TABLET. PO SCH (10:13)
[2018-03-21] MEDS: PANTOPRAZOLE 40 MG TABLET.DR. PO SCH (10:13)
[2018-03-21] MEDS: FLUDROCORTISONE 0.1 MG TABLET PO SCH (10:13)
[2018-03-21] MEDS: DICYCLOMINE HCL 10 MG CAPSULE PO SCH ×3 (10:13→20:55)
[2018-03-21] MEDS: FLUoxetine HCL 20 MG CAPSULE PO SCH (10:13)
[2018-03-21] MEDS: CHOLECALCIFEROL (VITAMIN D3) 1,000 UNIT TABLET PO SCH (10:14)
[2018-03-21] MEDS: NYSTATIN 100,000 UNITS/ML 5 ML ORAL.SUSP. SWSW SCH ×4 (10:14→20:54)
[2018-03-21] MEDS: POLYETHYLENE GLYCOL 3350 17 GM PACKET. PO SCH (10:14)
[2018-03-21] MEDS: BACLOFEN 10 MG TABLET. PO SCH ×3 (10:18→20:55)
[2018-03-21] MEDS: FLUPHENAZINE HCL 2.5 MG TABLET. PO SCH ×2 (10:23→20:55)
[2018-03-21 11:00] VITALS: BP 115/5
--- NOTE | 2018-03-21 11:01 | PDOC ---
PROGRESS NOTES Chief Complaint Chief Complaint odynophagia, dysphagia, difftls include infectious in etiology versus radiation esophagitis THroat/chest pain in a cancer pt did course of radiation Anemia of cancer Cachexia Hypertension, controlled Moderate to severe PCM History of cardiac hx - otherwise chronic stable History of Present Illness History of Present Illness Throat Pain persists Started on nystatin by GI Plan for now is to wait and see if medication will help , otherwise EGD Plan: CPM Farida go back to [facility] on dc Add some diflucan? Vitals Vitals Vital Signs Date Time Temp Pulse Resp B/P (MAP) Pulse Ox O2 Delivery O2 Flow Rate FiO2 03/21/18 10:13 Room Air 03/21/18 07:20 89 03/21/18 07:00 97.9 63 18 162/65 (97) 97.9 03/20/18 09:09 2.0 Physical Exam General: Alert, Oriented X3, Cooperative, No acute distress, Other (cachectic looking but not in distress) Heart: Regular rate, Normal S1, Normal S2 Lungs: Clear, Crackles Abdomen: Normal bowel sounds, Soft, No tenderness, No hepatosplenomegaly, No masses Extremities: No clubbing, No cyanosis, No edema, Normal pulses, No tenderness/ swelling Skin: No rashes, No breakdown, No significant lesion Review of Systems Review of Systems throat Pain otherwise rest of 14 point systems reviewed negative Assessment and Plan Assessmemt and Plan Problems Medical Problems: (1) Intractable pain Status: Acute Comment Review of Relevant I have reviewed the following items josé miguel (where applicable) has been applied. Labs Laboratory Tests Test 03/19/18 20:36 03/19/18 21:03 03/19/18 23:25 03/20/18 03:10 White Blood Count 3.4 x10^3/uL (4.0-11.0) 3.4 x10^3/uL (4.0-11.0) Red Blood Count 5.07 x10^6/uL (4.30-5.70) 4.80 x10^6/uL (4.30-5.70) Hemoglobin 10.3 g/dL (13.0-17.5) 9.8 g/dL (13.0-17.5) Hematocrit 32.4 % (39.0-53.0) 30.9 % (39.0-53.0) Mean Corpuscular Volume 64 fL (79-100) 64 fL (79-100) Mean Corpuscular Hemoglobin 20 pg (25-35) 21 pg (25-35) Mean Corpuscular Hemoglobin Concent 32 g/dL (31-37) 32 g/dL (31-37) Red Cell Distribution Width 18.7 % (11.5-14.5) 19.2 % (11.5-14.5) Platelet Count 146 x10^3/uL (140-400) 134 x10^3/uL (140-400) Neutrophils (%) (Auto) 64 % (31-73) 61 % (31-73) Lymphocytes (%) (Auto) 23 % (24-48) 25 % (24-48) Monocytes (%) (Auto) 9 % (0-9) 9 % (0-9) Eosinophils (%) (Auto) 3 % (0-3) 4 % (0-3) Basophils (%) (Auto) 1 % (0-3) 1 % (0-3) Neutrophils # (Auto) 2.2 x10^3uL (1.8-7.7) 2.1 x10^3uL (1.8-7.7) Lymphocytes # (Auto) 0.8 x10^3/uL (1.0-4.8) 0.8 x10^3/uL (1.0-4.8) Monocytes # (Auto) 0.3 x10^3/uL (0.0-1.1) 0.3 x10^3/uL (0.0-1.1) Eosinophils # (Auto) 0.1 x10^3/uL (0.0-0.7) 0.1 x10^3/uL (0.0-0.7) Basophils # (Auto) 0.0 x10^3/uL (0.0-0.2) 0.0 x10^3/uL (0.0-0.2) Platelet Estimate Adequate (ADEQUATE) Hypochromasia Mod Poikilocytosis Slight Basophilic Stippling Present Anisocytosis Slight Microcytosis Mod Macrocytosis Sodium Level 140 mmol/L (136-145) 141 mmol/L (136-145) Potassium Level 3.7 mmol/L (3.5-5.1) 3.9 mmol/L (3.5-5.1) Chloride Level 102 mmol/L (98-107) 105 mmol/L (98-107) Carbon Dioxide Level 35 mmol/L (21-32) 35 mmol/L (21-32) Anion Gap 3 (6-14) 1 (6-14) Blood Urea Nitrogen 14 mg/dL (8-26) 12 mg/dL (8-26) Creatinine 0.8 mg/dL (0.7-1.3) 0.7 mg/dL (0.7-1.3) Estimated GFR (Cockcroft-Gault) 98.6 115.0 BUN/Creatinine Ratio 18 (6-20) Glucose Level 122 mg/dL (70-99) 88 mg/dL (70-99) Calcium Level 8.3 mg/dL (8.5-10.1) 8.6 mg/dL (8.5-10.1) Total Bilirubin 0.3 mg/dL (0.2-1.0) Aspartate Amino Transf (AST/SGOT) 19 U/L (15-37) Alanine Aminotransferase (ALT/SGPT) 19 U/L (16-63) Alkaline Phosphatase 93 U/L (46-116) Total Protein 6.1 g/dL (6.4-8.2) Albumin 2.6 g/dL (3.4-5.0) Albumin/Globulin Ratio 0.7 (1.0-1.7) Nasal Screen MRSA (PCR) Positive (Negative) Medications Current Medications Fentanyl Citrate (Fentanyl 2ml Vial) 75 mcg 1X ONCE IV Last administered on at 21:10; Start 03/19/18 at 21:00; Stop 03/19/18 at 21:01; Status DC Ondansetron HCl (Zofran) 4 mg 1X ONCE IV Last administered on 03/19/18at 21:09 ; Start 03/19/18 at 21:00; Stop 03/19/18 at 21:01; Status DC Ondansetron HCl (Zofran) 4 mg PRN Q8HRS PRN IV NAUSEA/VOMITING; Start 03/19/18 at 22:15; Stop 03/20/18 at 08:28; Status DC Morphine Sulfate (Morphine Sulfate) 4 mg PRN Q2HR PRN IV PAIN MODERATE Last administered on 03/20/18at 05:43; Start 03/19/18 at 22:15; Stop 03/20/18 at 22:14 ; Status DC Fentanyl Citrate (Fentanyl 2ml Vial) 50 mcg PRN Q2HR PRN IV PAIN SEVERE Last administered on 03/20/18at 14:01; Start 03/19/18 at 22:15; Stop 03/20/18 at 22:14 ; Status DC Sodium Chloride 1,000 ml @ 125 mls/hr Q8H IV Last administered on 03/20/18at 16 :51; Start 03/19/18 at 22:15; Stop 03/20/18 at 22:14; Status DC Acetaminophen (Tylenol) 650 mg PRN Q4HRS PRN PO FEVER; Start 03/19/18 at 22:15 ; Stop 03/20/18 at 08:30; Status DC Albuterol/ Ipratropium (Duoneb) 3 ml RTQID NEB Last administered on 03/21/18at 07:19; Start 03/20/18 at 08:00; Stop 03/21/18 at 07:59; Status DC Ondansetron HCl (Zofran) 4 mg PRN Q6HRS PRN IV NAUSEA/VOMITING; Start 03/20/18 at 08:30 Acetaminophen (Tylenol) 650 mg PRN Q6HRS PRN PO MILD PAIN / TEMP; Start at 08:30 Atorvastatin Calcium (Lipitor) 10 mg QHS PO Last administered on 03/20/18at 21: 18; Start 03/20/18 at 21:00 Baclofen (Lioresal) 5 mg TID PO Last administered on 03/21/18at 10:18; Start at 09:00 Vitamin D (Vitamin D3) 1,000 unit DAILY PO Last administered on 03/21/18at 10:14 ; Start 03/20/18 at 09:00 Duloxetine HCl (Cymbalta) 30 mg DAILY PO Last administered on 03/21/18 10:11; Start 03/20/18 at 09:00 Fentanyl (Duragesic 25mcg/ Hr Patch) 1 patch Q72H TD Last administered on at 09:22; Start 03/20/18 at 09:00 Ferrous Sulfate (Feosol) 325 mg DAILY PO Last administered on 03/21/18 10:13; Start 03/20/18 at 09:00 Fludrocortisone Acetate (Florinef) 0.1 mg DAILY PO Last administered on 10:13; Start 03/20/18 at 09:00 Lorazepam (Ativan) 1 mg PRN Q4HRS PRN PO ANXIETY / AGITATION; Start 03/20/18 at 08:30 Nitroglycerin (Nitrostat) 0.4 mg PRN Q5MIN PRN SL CHEST PAIN; Start 03/20/18 at 08:30 Ondansetron HCl (Zofran Odt) 4 mg PRN Q6HRS PRN PO NAUSEA/VOMITING; Start 03/20 at 08:30 Oxycodone/ Acetaminophen (Percocet 5/325) 1 tab BID PO Last administered on 10:13; Start 03/20/18 at 09:00 Oxycodone/ Acetaminophen (Percocet 5/325) 1 tab PRN DAILY PRN PO PAIN; Start at 08:30 Pantoprazole Sodium (Protonix) 40 mg DAILYAC PO Last administered on 03/21/18 10:13; Start 03/20/18 at 09:00 Pregabalin (Lyrica) 75 mg BID PO Last administered on 03/21/18 10:11; Start at 09:00 Dicyclomine HCl (Bentyl) 20 mg TID PO Last administered on 03/21/18 10:13; Start 03/20/18 at 09:00 Fluoxetine HCl (PROzac) 80 mg DAILY PO Last administered on 03/21/18 10:13; Start 03/20/18 at 09:00 Fluphenazine HCl (Prolixin) 2.5 mg BID PO Last administered on 03/21/18 10:23 ; Start 03/20/18 at 09:00 Levothyroxine Sodium (Synthroid) 25 mcg DAILY06 PO Last administered on at 13:54; Start 03/20/18 at 09:00 Multi-Ingred Cream/Lotion/Oil/ Oint (Hydrocerin Cream) 1 ector BID TP ; Start at 09:00 Morphine Sulfate (Roxanol Conc) 10 mg PRN Q1HR PRN SL PAIN; Start 03/20/18 at 08:45 Polyethylene Glycol (miraLAX PACKET) 17 gm DAILY PO Last administered on at 10:14; Start 03/20/18 at 09:00 Thiamine Mononitrate (Vitamin B-1) 100 mg DAILY PO Last administered on at 10:11; Start 03/20/18 at 09:00 Trazodone HCl (Desyrel) 150 mg QHS PO Last administered on 03/20/18at 21:18; Start 03/20/18 at 21:00 Nystatin (Nystatin Oral Susp) 5 ml [id number] Last administered on 03/21/18at 10:14; Start 03/20/18 at 13:00 Multi-Ingredient Mouthwash/Gargle (Gi Cocktail) 20 ml PRN QID PRN PO odynophagia Last administered on 03/20/18at 13:54; Start 03/20/18 at 12:30 Active Scripts Active Reported Tylenol (Acetaminophen) 325 Mg Tablet 650 Mg PO Q6HRS PRN Miralax (Polyethylene Glycol 3350) 17 Gm Powd.pack 1 Packet PO DAILY Lipitor (Atorvastatin Calcium) 10 Mg Tablet 1 Tab PO QHS Cymbalta (Duloxetine Hcl) 30 Mg Capsule.dr 1 Cap PO DAILY Ativan (Lorazepam) 0.5 Mg Tablet 1 Mg PO Q4HRS PRN Percocet 5-325 Mg Tablet (Oxycodone/Acetaminophen) 1 Each Tablet 1 Tab PO BID FENTANYL 25mcg/hr (Fentanyl) 1 Each Patch.td72 1 Patch TD Q72H Aquaphor Ointment (Mineral Oil/Hydrophil Petrolat) 396 Gm Oint...g. 396 Gm TP BID Zofran Odt (Ondansetron) 4 Mg Tab.rapdis 1 Tab SL Q6HRS PRN Morphine Sulfate 20 Mg/5 Ml Solution 20 Mg PO 0.5CC HOURLY Percocet 5-325 Mg Tablet (Oxycodone/Acetaminophen) 1 Each Tablet 1 Tab PO DAILY PRN NITROGLYCERIN SubLingual (Nitroglycerin) 0.4 Mg Tab.subl 0.4 Mg SL PRN Q5MIN PRN Fluphenazine Hcl 5 Mg Tablet 2.5 Mg PO BID Dicyclomine Hcl 20 Mg Tablet 1 Tab PO TID Vitamin D3 (Cholecalciferol (Vitamin D3)) 1,000 Unit Tablet 1,000 Unit PO DAILY Vitamin B-1 (Thiamine Mononitrate) 100 Mg Tablet 100 Mg PO DAILY Trazodone Hcl 150 Mg Tablet 150 Mg PO HS Prozac (Fluoxetine Hcl) 40 Mg Capsule 80 Mg PO DAILY Lyrica (Pregabalin) 75 Mg Capsule 75 Mg PO BID Protonix (Pantoprazole Sodium) 40 Mg Tablet.dr 40 Mg PO DAILY Levothyroxine Sodium 25 Mcg Tablet 25 Mcg PO DAILYAC Ketoconazole 120 Ml Shampoo 1 Ector TP WEEKLY ON SUNDAY Fludrocortisone Acetate 0.1 Mg Tablet 0.1 Mg PO DAILY Ferrous Sulfate 325 Mg Tablet 325 Mg PO DAILY Baclofen 10 Mg Tablet 5 Mg PO TID Aspirin 81 Mg Tab.chew 81 Mg PO DAILY Vitals/I & O Vital Sign - Last 24 Hours 03/20/18 03/20/18 03/20/18 03/20/18 11:06 11:13 13:55 14:01 Temp 97.7 97.7 Pulse 46 Resp 20 B/P (MAP) 139/71 (93) Pulse Ox 95 95 O2 Delivery Room Air Room Air Room Air Room Air 03/20/18 03/20/18 03/20/18 03/20/18 15:05 15:32 15:34 19:00 Temp 98.0 97.7 98.0 97.7 Pulse 50 67 Resp 18 18 B/P (MAP) 131/76 (94) 169/74 (105) Pulse Ox 94 93 99 O2 Delivery Room Air Room Air Room Air Room Air 03/20/18 03/20/18 03/20/18 03/20/18 19:55 20:05 21:19 22:29 Resp 18 18 O2 Delivery Room Air Room Air Room Air Room Air 03/20/18 03/21/18 03/21/18 03/21/18 23:00 03:00 07:00 07:20 Temp 98.1 98.1 97.9 98.1 98.1 97.9 Pulse 69 50 63 Resp 18 18 18 B/P (MAP) 153/62 (92) 100/80 (87) 162/65 (97) Pulse Ox 92 90 92 89 O2 Delivery Room Air Room Air Room Air Room Air 03/21/18 10:13 O2 Delivery Room Air Intake and Output 8/03/20/18 03/21/18 15:00 23:00 07:00 Intake Total 240 ml 1638 ml 3262 ml Output Total 450 ml 800 ml 700 ml Balance -210 ml 838 ml 2562 ml MIS BAILEY MD Mar 21, 2018 11:01
[2018-03-21] MEDS: FLUCONAZOLE 100 MG TABLET. PO SCH (12:24)
[2018-03-21 15:00] VITALS: BP 156/71
[2018-03-21] MEDS: oxyCODONE/APAP 5/325 1 TAB TABLET PO PRN (17:11)
[2018-03-21 19:00] VITALS: BP 86/71
[2018-03-21] MEDS: traZODone 50 MG TABLET. PO SCH (20:55)
[2018-03-21] MEDS: ATORVASTATIN CALCIUM 10 MG TABLET. PO SCH (20:55)
[2018-03-21 23:00] VITALS: BP 162/83
[2018-03-22 03:00] VITALS: BP 135/58
[2018-03-22] MEDS: LEVOTHYROXINE 25 MCG TABLET. PO SCH (06:22)
[2018-03-22] MEDS: PANTOPRAZOLE 40 MG TABLET.DR. PO SCH (06:22)
[2018-03-22 07:00] VITALS: BP 136/54
[2018-03-22] MEDS: MINERAL OIL/PETROLATUM TOPICAL CREAM 113GM JAR. TP SCH ×2 (09:00→20:49)
[2018-03-22] MEDS: FLUoxetine HCL 20 MG CAPSULE PO SCH (09:33)
[2018-03-22] MEDS: FLUCONAZOLE 100 MG TABLET. PO SCH (09:33)
[2018-03-22] MEDS: BACLOFEN 10 MG TABLET. PO SCH ×3 (09:33→20:35)
[2018-03-22] MEDS: FLUPHENAZINE HCL 2.5 MG TABLET. PO SCH ×2 (09:34→20:35)
[2018-03-22] MEDS: oxyCODONE/APAP 5/325 1 TAB TABLET PO SCH ×2 (09:34→20:35)
[2018-03-22] MEDS: FERROUS SULFATE 325 MG TABLET. PO SCH (09:34)
[2018-03-22] MEDS: DICYCLOMINE HCL 10 MG CAPSULE PO SCH ×3 (09:34→20:34)
[2018-03-22] MEDS: PREGABALIN 75 MG CAPSULE PO SCH ×2 (09:34→20:35)
[2018-03-22] MEDS: DULoxetine HCL 30 MG CAPSULE.DR PO SCH (09:35)
[2018-03-22] MEDS: POLYETHYLENE GLYCOL 3350 17 GM PACKET. PO SCH (09:36)
[2018-03-22] MEDS: FLUDROCORTISONE 0.1 MG TABLET PO SCH (09:36)
[2018-03-22] MEDS: THIAMINE 100 MG TABLET. PO SCH (09:36)
[2018-03-22] MEDS: CHOLECALCIFEROL (VITAMIN D3) 1,000 UNIT TABLET PO SCH (09:36)
[2018-03-22] MEDS: NYSTATIN 100,000 UNITS/ML 5 ML ORAL.SUSP. SWSW SCH ×4 (09:37→20:34)
--- NOTE | 2018-03-22 10:10 | PDOC ---
Subjective: Subjective: Shakes his head when I ask if swallowing is better. Hurts to swallow, food gets stuck. No coughing, vomiting, or regurg. Says stooling normally. Objective: Vital Signs: Vital Signs Date Time Temp Pulse Resp B/P (MAP) Pulse Ox O2 Delivery O2 Flow Rate FiO2 03/22/18 09:34 18 90 Room Air 03/22/18 07:00 97.7 54 136/54 (81) 97.7 PE: GEN: NAD, curled up in bed on left side LUNGS: room air HEART: RRR NEURO/PSYCH: A & O 3, quiet, depressed OTHER: breakfast tray nearly empty A/P: Odynophagia and chronic dysphagia Recent radiation -- Still complains of painful swallowing but eating. Continue anti-fungal, use GI cocktail PRN (discussed before meals - RN present). He's reconsidering EGD, could consider next week. JULIAN REGAN Mar 22, 2018 10:10
[2018-03-22 11:00] VITALS: BP 129/80
--- NOTE | 2018-03-22 12:14 | PDOC ---
PROGRESS NOTES Chief Complaint Chief Complaint Tonsillar CA Stage 3 intractable pain odynophagia, dysphagia, difftls include infectious in etiology versus radiation esophagitis Throat/chest pain in a cancer pt did course of radiation Anemia of cancer Cachexia Hypertension, controlled Moderate to severe PCM History of cardiac hx - otherwise chronic stable History of Present Illness History of Present Illness pt seen and examined throat pain is present DW RN declined EGD yesterday but may have procedure done today if pt consents Vitals Vitals Vital Signs Date Time Temp Pulse Resp B/P (MAP) Pulse Ox O2 Delivery O2 Flow Rate FiO2 03/22/18 09:34 18 90 Room Air 03/22/18 07:00 97.7 54 136/54 (81) 97.7 Physical Exam General: Alert, Oriented X3, Cooperative, No acute distress Heart: Regular rate, Normal S1, Normal S2 Lungs: Clear, Crackles Abdomen: Normal bowel sounds, Soft, No tenderness, No hepatosplenomegaly, No masses Extremities: No clubbing, No cyanosis, No edema, Normal pulses, No tenderness/ swelling Skin: No rashes, No breakdown, No significant lesion Review of Systems Review of Systems co throat pain no co sob no co hunger Assessment and Plan Assessmemt and Plan Assessment: Tonsillar CA Stage 3 intractable pain odynophagia, dysphagia, difftls include infectious in etiology versus radiation esophagitis Throat/chest pain in a cancer pt did course of radiation Anemia of cancer Cachexia Hypertension, controlled Moderate to severe PCM History of cardiac hx - otherwise chronic stable Plan: home meds fluids PTOT possible EGD DC if ok with subspecialty Comment Review of Relevant I have reviewed the following items josé miguel (where applicable) has been applied. Medications Current Medications Fentanyl Citrate (Fentanyl 2ml Vial) 75 mcg 1X ONCE IV Last administered on at 21:10; Start 03/19/18 at 21:00; Stop 03/19/18 at 21:01; Status DC Ondansetron HCl (Zofran) 4 mg 1X ONCE IV Last administered on 03/19/18at 21:09 ; Start 03/19/18 at 21:00; Stop 03/19/18 at 21:01; Status DC Ondansetron HCl (Zofran) 4 mg PRN Q8HRS PRN IV NAUSEA/VOMITING; Start 03/19/18 at 22:15; Stop 03/20/18 at 08:28; Status DC Morphine Sulfate (Morphine Sulfate) 4 mg PRN Q2HR PRN IV PAIN MODERATE Last administered on 03/20/18at 05:43; Start 03/19/18 at 22:15; Stop 03/20/18 at 22:14 ; Status DC Fentanyl Citrate (Fentanyl 2ml Vial) 50 mcg PRN Q2HR PRN IV PAIN SEVERE Last administered on 03/20/18at 14:01; Start 03/19/18 at 22:15; Stop 03/20/18 at 22:14 ; Status DC Sodium Chloride 1,000 ml @ 125 mls/hr Q8H IV Last administered on 03/20/18at 16 :51; Start 03/19/18 at 22:15; Stop 03/20/18 at 22:14; Status DC Acetaminophen (Tylenol) 650 mg PRN Q4HRS PRN PO FEVER; Start 03/19/18 at 22:15 ; Stop 03/20/18 at 08:30; Status DC Albuterol/ Ipratropium (Duoneb) 3 ml RTQID NEB Last administered on 03/21/18at 07:19; Start 03/20/18 at 08:00; Stop 03/21/18 at 07:59; Status DC Ondansetron HCl (Zofran) 4 mg PRN Q6HRS PRN IV NAUSEA/VOMITING; Start 03/20/18 at 08:30 Acetaminophen (Tylenol) 650 mg PRN Q6HRS PRN PO MILD PAIN / TEMP; Start at 08:30 Atorvastatin Calcium (Lipitor) 10 mg QHS PO Last administered on 03/21/18at 20: 55; Start 03/20/18 at 21:00 Baclofen (Lioresal) 5 mg TID PO Last administered on 03/22/18at 09:33; Start at 09:00 Vitamin D (Vitamin D3) 1,000 unit DAILY PO Last administered on 03/22/18at 09:36 ; Start 03/20/18 at 09:00 Duloxetine HCl (Cymbalta) 30 mg DAILY PO Last administered on 03/22/18at 09:35; Start 03/20/18 at 09:00 Fentanyl (Duragesic 25mcg/ Hr Patch) 1 patch Q72H TD Last administered on at 09:22; Start 03/20/18 at 09:00 Ferrous Sulfate (Feosol) 325 mg DAILY PO Last administered on 03/22/18 09:34; Start 03/20/18 at 09:00 Fludrocortisone Acetate (Florinef) 0.1 mg DAILY PO Last administered on at 09:36; Start 03/20/18 at 09:00 Lorazepam (Ativan) 1 mg PRN Q4HRS PRN PO ANXIETY / AGITATION; Start 03/20/18 at 08:30 Nitroglycerin (Nitrostat) 0.4 mg PRN Q5MIN PRN SL CHEST PAIN; Start 03/20/18 at 08:30 Ondansetron HCl (Zofran Odt) 4 mg PRN Q6HRS PRN PO NAUSEA/VOMITING; Start 03/20 at 08:30 Oxycodone/ Acetaminophen (Percocet 5/325) 1 tab BID PO Last administered on 09:34; Start 03/20/18 at 09:00 Oxycodone/ Acetaminophen (Percocet 5/325) 1 tab PRN DAILY PRN PO MODERATE PAIN Last administered on 03/21/18 17:11; Start 03/20/18 at 08:30 Pantoprazole Sodium (Protonix) 40 mg DAILYAC PO Last administered on 03/22/18 06:22; Start 03/20/18 at 09:00 Pregabalin (Lyrica) 75 mg BID PO Last administered on 03/22/18at 09:34; Start at 09:00 Dicyclomine HCl (Bentyl) 20 mg TID PO Last administered on 03/22/18at 09:34; Start 03/20/18 at 09:00 Fluoxetine HCl (PROzac) 80 mg DAILY PO Last administered on 03/22/18 09:33; Start 03/20/18 at 09:00 Fluphenazine HCl (Prolixin) 2.5 mg BID PO Last administered on 03/22/18 09:34 ; Start 03/20/18 at 09:00 Levothyroxine Sodium (Synthroid) 25 mcg DAILY06 PO Last administered on at 06:22; Start 03/20/18 at 09:00 Multi-Ingred Cream/Lotion/Oil/ Oint (Hydrocerin Cream) 1 ector BID TP ; Start at 09:00 Morphine Sulfate (Roxanol Conc) 10 mg PRN Q1HR PRN SL SEVERE PAIN; Start at 08:45 Polyethylene Glycol (miraLAX PACKET) 17 gm DAILY PO Last administered on 09:36; Start 03/20/18 at 09:00 Thiamine Mononitrate (Vitamin B-1) 100 mg DAILY PO Last administered on at 09:36; Start 03/20/18 at 09:00 Trazodone HCl (Desyrel) 150 mg QHS PO Last administered on 03/21/18at 20:55; Start 03/20/18 at 21:00 Nystatin (Nystatin Oral Susp) 5 ml [id number] Last administered on 03/22/18at 09:37; Start 03/20/18 at 13:00 Multi-Ingredient Mouthwash/Gargle (Gi Cocktail) 20 ml PRN QID PRN PO odynophagia Last administered on 03/20/18at 13:54; Start 03/20/18 at 12:30 Fluconazole (Diflucan) 100 mg DAILY PO Last administered on 03/22/18 09:33; Start 03/21/18 at 11:30 Active Scripts Active Reported Tylenol (Acetaminophen) 325 Mg Tablet 650 Mg PO Q6HRS PRN Miralax (Polyethylene Glycol 3350) 17 Gm Powd.pack 1 Packet PO DAILY Lipitor (Atorvastatin Calcium) 10 Mg Tablet 1 Tab PO QHS Cymbalta (Duloxetine Hcl) 30 Mg Capsule.dr 1 Cap PO DAILY Ativan (Lorazepam) 0.5 Mg Tablet 1 Mg PO Q4HRS PRN Percocet 5-325 Mg Tablet (Oxycodone/Acetaminophen) 1 Each Tablet 1 Tab PO BID FENTANYL 25mcg/hr (Fentanyl) 1 Each Patch.td72 1 Patch TD Q72H Aquaphor Ointment (Mineral Oil/Hydrophil Petrolat) 396 Gm Oint...g. 396 Gm TP BID Zofran Odt (Ondansetron) 4 Mg Tab.rapdis 1 Tab SL Q6HRS PRN Morphine Sulfate 20 Mg/5 Ml Solution 20 Mg PO 0.5CC HOURLY Percocet 5-325 Mg Tablet (Oxycodone/Acetaminophen) 1 Each Tablet 1 Tab PO DAILY PRN NITROGLYCERIN SubLingual (Nitroglycerin) 0.4 Mg Tab.subl 0.4 Mg SL PRN Q5MIN PRN Fluphenazine Hcl 5 Mg Tablet 2.5 Mg PO BID Dicyclomine Hcl 20 Mg Tablet 1 Tab PO TID Vitamin D3 (Cholecalciferol (Vitamin D3)) 1,000 Unit Tablet 1,000 Unit PO DAILY Vitamin B-1 (Thiamine Mononitrate) 100 Mg Tablet 100 Mg PO DAILY Trazodone Hcl 150 Mg Tablet 150 Mg PO HS Prozac (Fluoxetine Hcl) 40 Mg Capsule 80 Mg PO DAILY Lyrica (Pregabalin) 75 Mg Capsule 75 Mg PO BID Protonix (Pantoprazole Sodium) 40 Mg Tablet.dr 40 Mg PO DAILY Levothyroxine Sodium 25 Mcg Tablet 25 Mcg PO DAILYAC Ketoconazole 120 Ml Shampoo 1 Ector TP WEEKLY ON SUNDAY Fludrocortisone Acetate 0.1 Mg Tablet 0.1 Mg PO DAILY Ferrous Sulfate 325 Mg Tablet 325 Mg PO DAILY Baclofen 10 Mg Tablet 5 Mg PO TID Aspirin 81 Mg Tab.chew 81 Mg PO DAILY Vitals/I & O Vital Sign - Last 24 Hours 03/21/18 03/21/18 03/21/18 03/21/18 15:00 17:11 19:00 19:00 Temp 98.4 98.3 98.4 98.3 Pulse 50 51 Resp 18 B/P (MAP) 156/71 (99) 86/71 (76) Pulse Ox 93 92 O2 Delivery Room Air Room Air Room Air Room Air 03/21/18 03/21/18 03/21/18 03/21/18 19:50 20:55 22:21 23:00 Temp 99.0 99.0 Pulse 51 Resp 18 16 18 B/P (MAP) 162/83 (109) Pulse Ox 92 O2 Delivery Room Air Room Air Room Air Room Air 03/22/18 03/22/18 03/22/18 03:00 07:00 09:34 Temp 98.4 97.7 98.4 97.7 Pulse 67 54 Resp 18 18 18 B/P (MAP) 135/58 (83) 136/54 (81) Pulse Ox 93 90 90 O2 Delivery Room Air Room Air Room Air Intake and Output 03/21/18 03/21/18 03/22/18 15:00 23:00 07:00 Intake Total 550 ml 850 ml Output Total 1400 ml 500 ml Balance -850 ml 350 ml GAYLE ZHAO III DO Mar 22, 2018 12:14
[2018-03-22 15:00] VITALS: BP 135/74
[2018-03-22 19:50] VITALS: BP 125/73
[2018-03-22] MEDS: traZODone 50 MG TABLET. PO SCH (20:34)
[2018-03-22] MEDS: ATORVASTATIN CALCIUM 10 MG TABLET. PO SCH (20:34)
[2018-03-22 23:00] VITALS: BP 132/52
[2018-03-23 03:00] VITALS: BP 162/71
[2018-03-23] MEDS: PANTOPRAZOLE 40 MG TABLET.DR. PO SCH (06:10)
[2018-03-23] MEDS: LEVOTHYROXINE 25 MCG TABLET. PO SCH (06:10)
[2018-03-23] MEDS: oxyCODONE/APAP 5/325 1 TAB TABLET PO PRN (06:11)
[2018-03-23 07:00] VITALS: BP 129/40
[2018-03-23] MEDS: MINERAL OIL/PETROLATUM TOPICAL CREAM 113GM JAR. TP SCH ×2 (09:00→20:29)
[2018-03-23] MEDS: POLYETHYLENE GLYCOL 3350 17 GM PACKET. PO SCH (09:35)
[2018-03-23] MEDS: fentaNYL 25MCG/HR PATCH 1 PATCH PATCH.TD72 TD SCH (09:36)
[2018-03-23] MEDS: NYSTATIN 100,000 UNITS/ML 5 ML ORAL.SUSP. SWSW SCH ×4 (09:36→21:38)
[2018-03-23] MEDS: FLUoxetine HCL 20 MG CAPSULE PO SCH (09:37)
[2018-03-23] MEDS: FLUDROCORTISONE 0.1 MG TABLET PO SCH (09:37)
[2018-03-23] MEDS: FLUPHENAZINE HCL 2.5 MG TABLET. PO SCH ×2 (09:37→21:38)
[2018-03-23] MEDS: PREGABALIN 75 MG CAPSULE PO SCH ×2 (09:38→21:37)
[2018-03-23] MEDS: FERROUS SULFATE 325 MG TABLET. PO SCH (09:38)
[2018-03-23] MEDS: CHOLECALCIFEROL (VITAMIN D3) 1,000 UNIT TABLET PO SCH (09:39)
[2018-03-23] MEDS: oxyCODONE/APAP 5/325 1 TAB TABLET PO SCH ×2 (09:39→21:38)
[2018-03-23] MEDS: BACLOFEN 10 MG TABLET. PO SCH ×3 (09:39→21:37)
[2018-03-23] MEDS: THIAMINE 100 MG TABLET. PO SCH (09:39)
[2018-03-23] MEDS: DICYCLOMINE HCL 10 MG CAPSULE PO SCH ×3 (09:40→21:37)
[2018-03-23] MEDS: FLUCONAZOLE 100 MG TABLET. PO SCH (09:40)
[2018-03-23] MEDS: DULoxetine HCL 30 MG CAPSULE.DR PO SCH (09:41)
[2018-03-23 11:00] VITALS: BP 148/82
--- NOTE | 2018-03-23 11:10 | PDOC ---
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 NAD Vitals Vitals Vital Signs Date Time Temp Pulse Resp B/P (MAP) Pulse Ox O2 Delivery O2 Flow Rate FiO2 03/23/18 10:45 95 Room Air 03/23/18 07:00 97.9 59 16 129/40 (69) 97.9 Physical Exam General: Alert, Oriented X3, Cooperative, No acute distress Heart: Regular rate, Normal S1, Normal S2 Lungs: Clear, Crackles Abdomen: Normal bowel sounds, Soft, No tenderness, No hepatosplenomegaly, No masses Extremities: No clubbing, No cyanosis, No edema, Normal pulses, No tenderness/ swelling Skin: No rashes, No breakdown, No significant lesion Review of Systems Review of Systems CO of throat pain denies N/V Assessment and Plan Assessmemt and Plan Tonsillar CA Stage 3 intractable pain odynophagia, dysphagia, difftls include infectious in etiology versus radiation esophagitis Throat/chest pain in a cancer pt did course of radiation Anemia of cancer Cachexia Hypertension, controlled Moderate to severe PCM History of cardiac hx - otherwise chronic stable Plan: Narcotics PRN for pain management Labs PT/OT home meds f/u w/GI for progress on EGD Comment Review of Relevant I have reviewed the following items josé miguel (where applicable) has been applied. Medications Current Medications Fentanyl Citrate (Fentanyl 2ml Vial) 75 mcg 1X ONCE IV Last administered on at 21:10; Start 03/19/18 at 21:00; Stop 03/19/18 at 21:01; Status DC Ondansetron HCl (Zofran) 4 mg 1X ONCE IV Last administered on 03/19/18at 21:09 ; Start 03/19/18 at 21:00; Stop 03/19/18 at 21:01; Status DC Ondansetron HCl (Zofran) 4 mg PRN Q8HRS PRN IV NAUSEA/VOMITING; Start 03/19/18 at 22:15; Stop 03/20/18 at 08:28; Status DC Morphine Sulfate (Morphine Sulfate) 4 mg PRN Q2HR PRN IV PAIN MODERATE Last administered on 03/20/18at 05:43; Start 03/19/18 at 22:15; Stop 03/20/18 at 22:14 ; Status DC Fentanyl Citrate (Fentanyl 2ml Vial) 50 mcg PRN Q2HR PRN IV PAIN SEVERE Last administered on 03/20/18at 14:01; Start 03/19/18 at 22:15; Stop 03/20/18 at 22:14 ; Status DC Sodium Chloride 1,000 ml @ 125 mls/hr Q8H IV Last administered on 03/20/18at 16 :51; Start 03/19/18 at 22:15; Stop 03/20/18 at 22:14; Status DC Acetaminophen (Tylenol) 650 mg PRN Q4HRS PRN PO FEVER; Start 03/19/18 at 22:15 ; Stop 03/20/18 at 08:30; Status DC Albuterol/ Ipratropium (Duoneb) 3 ml RTQID NEB Last administered on 03/21/18at 07:19; Start 03/20/18 at 08:00; Stop 03/21/18 at 07:59; Status DC Ondansetron HCl (Zofran) 4 mg PRN Q6HRS PRN IV NAUSEA/VOMITING; Start 03/20/18 at 08:30 Acetaminophen (Tylenol) 650 mg PRN Q6HRS PRN PO MILD PAIN / TEMP; Start at 08:30 Atorvastatin Calcium (Lipitor) 10 mg QHS PO Last administered on 03/22/18at 20: 34; Start 03/20/18 at 21:00 Baclofen (Lioresal) 5 mg TID PO Last administered on 03/23/18 09:39; Start at 09:00 Vitamin D (Vitamin D3) 1,000 unit DAILY PO Last administered on 03/23/18 09:39 ; Start 03/20/18 at 09:00 Duloxetine HCl (Cymbalta) 30 mg DAILY PO Last administered on 03/23/18 09:41; Start 03/20/18 at 09:00 Fentanyl (Duragesic 25mcg/ Hr Patch) 1 patch Q72H TD Last administered on at 09:36; Start 03/20/18 at 09:00 Ferrous Sulfate (Feosol) 325 mg DAILY PO Last administered on 03/23/18 09:38; Start 03/20/18 at 09:00 Fludrocortisone Acetate (Florinef) 0.1 mg DAILY PO Last administered on 09:37; Start 03/20/18 at 09:00 Lorazepam (Ativan) 1 mg PRN Q4HRS PRN PO ANXIETY / AGITATION; Start 03/20/18 at 08:30 Nitroglycerin (Nitrostat) 0.4 mg PRN Q5MIN PRN SL CHEST PAIN; Start 03/20/18 at 08:30 Ondansetron HCl (Zofran Odt) 4 mg PRN Q6HRS PRN PO NAUSEA/VOMITING; Start 03/20 at 08:30 Oxycodone/ Acetaminophen (Percocet 5/325) 1 tab BID PO Last administered on at 09:39; Start 03/20/18 at 09:00 Oxycodone/ Acetaminophen (Percocet 5/325) 1 tab PRN DAILY PRN PO MODERATE PAIN Last administered on 03/23/18 06:11; Start 03/20/18 at 08:30 Pantoprazole Sodium (Protonix) 40 mg DAILYAC PO Last administered on 03/23/18 06:10; Start 03/20/18 at 09:00 Pregabalin (Lyrica) 75 mg BID PO Last administered on 03/23/18 09:38; Start at 09:00 Dicyclomine HCl (Bentyl) 20 mg TID PO Last administered on 03/23/18 09:40; Start 03/20/18 at 09:00 Fluoxetine HCl (PROzac) 80 mg DAILY PO Last administered on 03/23/18 09:37; Start 03/20/18 at 09:00 Fluphenazine HCl (Prolixin) 2.5 mg BID PO Last administered on 03/23/18 09:37 ; Start 03/20/18 at 09:00 Levothyroxine Sodium (Synthroid) 25 mcg DAILY06 PO Last administered on 06:10; Start 03/20/18 at 09:00 Multi-Ingred Cream/Lotion/Oil/ Oint (Hydrocerin Cream) 1 ector BID TP ; Start at 09:00 Morphine Sulfate (Roxanol Conc) 10 mg PRN Q1HR PRN SL SEVERE PAIN; Start at 08:45 Polyethylene Glycol (miraLAX PACKET) 17 gm DAILY PO Last administered on at 09:35; Start 03/20/18 at 09:00 Thiamine Mononitrate (Vitamin B-1) 100 mg DAILY PO Last administered on 09:39; Start 03/20/18 at 09:00 Trazodone HCl (Desyrel) 150 mg QHS PO Last administered on 03/22/18 20:34; Start 03/20/18 at 21:00 Nystatin (Nystatin Oral Susp) 5 ml [id number] Last administered on 03/23/18 09:36; Start 03/20/18 at 13:00 Multi-Ingredient Mouthwash/Gargle (Gi Cocktail) 20 ml PRN QID PRN PO odynophagia Last administered on 03/20/18at 13:54; Start 03/20/18 at 12:30 Fluconazole (Diflucan) 100 mg DAILY PO Last administered on 03/23/18 09:40; Start 03/21/18 at 11:30 Active Scripts Active Reported Tylenol (Acetaminophen) 325 Mg Tablet 650 Mg PO Q6HRS PRN Miralax (Polyethylene Glycol 3350) 17 Gm Powd.pack 1 Packet PO DAILY Lipitor (Atorvastatin Calcium) 10 Mg Tablet 1 Tab PO QHS Cymbalta (Duloxetine Hcl) 30 Mg Capsule.dr 1 Cap PO DAILY Ativan (Lorazepam) 0.5 Mg Tablet 1 Mg PO Q4HRS PRN Percocet 5-325 Mg Tablet (Oxycodone/Acetaminophen) 1 Each Tablet 1 Tab PO BID FENTANYL 25mcg/hr (Fentanyl) 1 Each Patch.td72 1 Patch TD Q72H Aquaphor Ointment (Mineral Oil/Hydrophil Petrolat) 396 Gm Oint...g. 396 Gm TP BID Zofran Odt (Ondansetron) 4 Mg Tab.rapdis 1 Tab SL Q6HRS PRN Morphine Sulfate 20 Mg/5 Ml Solution 20 Mg PO 0.5CC HOURLY Percocet 5-325 Mg Tablet (Oxycodone/Acetaminophen) 1 Each Tablet 1 Tab PO DAILY PRN NITROGLYCERIN SubLingual (Nitroglycerin) 0.4 Mg Tab.subl 0.4 Mg SL PRN Q5MIN PRN Fluphenazine Hcl 5 Mg Tablet 2.5 Mg PO BID Dicyclomine Hcl 20 Mg Tablet 1 Tab PO TID Vitamin D3 (Cholecalciferol (Vitamin D3)) 1,000 Unit Tablet 1,000 Unit PO DAILY Vitamin B-1 (Thiamine Mononitrate) 100 Mg Tablet 100 Mg PO DAILY Trazodone Hcl 150 Mg Tablet 150 Mg PO HS Prozac (Fluoxetine Hcl) 40 Mg Capsule 80 Mg PO DAILY Lyrica (Pregabalin) 75 Mg Capsule 75 Mg PO BID Protonix (Pantoprazole Sodium) 40 Mg Tablet.dr 40 Mg PO DAILY Levothyroxine Sodium 25 Mcg Tablet 25 Mcg PO DAILYAC Ketoconazole 120 Ml Shampoo 1 Ector TP WEEKLY ON SUNDAY Fludrocortisone Acetate 0.1 Mg Tablet 0.1 Mg PO DAILY Ferrous Sulfate 325 Mg Tablet 325 Mg PO DAILY Baclofen 10 Mg Tablet 5 Mg PO TID Aspirin 81 Mg Tab.chew 81 Mg PO DAILY Vitals/I & O Vital Sign - Last 24 Hours 03/22/18 03/22/18 03/22/18 03/22/18 15:00 19:50 20:10 20:35 Temp 98.3 98.2 98.3 98.2 Pulse 50 64 Resp 14 16 18 B/P (MAP) 135/74 (94) 125/73 (90) Pulse Ox 92 95 95 O2 Delivery Room Air Room Air Room Air Room Air 03/22/18 03/23/18 03/23/18 03/23/18 23:00 03:00 06:11 07:00 Temp 98.1 97.7 97.9 98.1 97.7 97.9 Pulse 51 47 59 Resp 16 16 20 16 B/P (MAP) 132/52 (78) 162/71 (101) 129/40 (69) Pulse Ox 93 95 95 92 O2 Delivery Room Air Room Air Room Air Room Air 03/23/18 03/23/18 03/23/18 03/23/18 07:15 09:36 09:39 10:45 Pulse Ox 95 95 95 95 O2 Delivery Room Air Room Air Room Air Room Air Intake and Output 03/22/18 03/22/18 03/23/18 15:00 23:00 07:00 Intake Total 400 ml Balance 400 ml GAYLE ZHAO III DO Mar 23, 2018 11:10
--- NOTE | 2018-03-23 13:35 | PDOC ---
G I PROGRESS NOTE Reason for Follow-up Difficulty swallowing Subjective Tolerating PO with some discomfort Physical Exam Lungs clear CV S1 S2 ABD +BS, soft, nontender Review of Relevant I have reviewed the following items josé miguel (where applicable) has been applied. Medications Current Medications Fentanyl Citrate (Fentanyl 2ml Vial) 75 mcg 1X ONCE IV Last administered on at 21:10; Start 03/19/18 at 21:00; Stop 03/19/18 at 21:01; Status DC Ondansetron HCl (Zofran) 4 mg 1X ONCE IV Last administered on 03/19/18at 21:09 ; Start 03/19/18 at 21:00; Stop 03/19/18 at 21:01; Status DC Ondansetron HCl (Zofran) 4 mg PRN Q8HRS PRN IV NAUSEA/VOMITING; Start 03/19/18 at 22:15; Stop 03/20/18 at 08:28; Status DC Morphine Sulfate (Morphine Sulfate) 4 mg PRN Q2HR PRN IV PAIN MODERATE Last administered on 03/20/18at 05:43; Start 03/19/18 at 22:15; Stop 03/20/18 at 22:14 ; Status DC Fentanyl Citrate (Fentanyl 2ml Vial) 50 mcg PRN Q2HR PRN IV PAIN SEVERE Last administered on 03/20/18at 14:01; Start 03/19/18 at 22:15; Stop 03/20/18 at 22:14 ; Status DC Sodium Chloride 1,000 ml @ 125 mls/hr Q8H IV Last administered on 03/20/18at 16 :51; Start 03/19/18 at 22:15; Stop 03/20/18 at 22:14; Status DC Acetaminophen (Tylenol) 650 mg PRN Q4HRS PRN PO FEVER; Start 03/19/18 at 22:15 ; Stop 03/20/18 at 08:30; Status DC Albuterol/ Ipratropium (Duoneb) 3 ml RTQID NEB Last administered on 03/21/18at 07:19; Start 03/20/18 at 08:00; Stop 03/21/18 at 07:59; Status DC Ondansetron HCl (Zofran) 4 mg PRN Q6HRS PRN IV NAUSEA/VOMITING; Start 03/20/18 at 08:30 Acetaminophen (Tylenol) 650 mg PRN Q6HRS PRN PO MILD PAIN / TEMP; Start at 08:30 Atorvastatin Calcium (Lipitor) 10 mg QHS PO Last administered on 03/22/18 20: 34; Start 03/20/18 at 21:00 Baclofen (Lioresal) 5 mg TID PO Last administered on 03/23/18 09:39; Start at 09:00 Vitamin D (Vitamin D3) 1,000 unit DAILY PO Last administered on 03/23/18 09:39 ; Start 03/20/18 at 09:00 Duloxetine HCl (Cymbalta) 30 mg DAILY PO Last administered on 03/23/18 09:41; Start 03/20/18 at 09:00 Fentanyl (Duragesic 25mcg/ Hr Patch) 1 patch Q72H TD Last administered on 09:36; Start 03/20/18 at 09:00 Ferrous Sulfate (Feosol) 325 mg DAILY PO Last administered on 03/23/18 09:38; Start 03/20/18 at 09:00 Fludrocortisone Acetate (Florinef) 0.1 mg DAILY PO Last administered on 09:37; Start 03/20/18 at 09:00 Lorazepam (Ativan) 1 mg PRN Q4HRS PRN PO ANXIETY / AGITATION; Start 03/20/18 at 08:30 Nitroglycerin (Nitrostat) 0.4 mg PRN Q5MIN PRN SL CHEST PAIN; Start 03/20/18 at 08:30 Ondansetron HCl (Zofran Odt) 4 mg PRN Q6HRS PRN PO NAUSEA/VOMITING; Start 03/20 at 08:30 Oxycodone/ Acetaminophen (Percocet 5/325) 1 tab BID PO Last administered on 09:39; Start 03/20/18 at 09:00 Oxycodone/ Acetaminophen (Percocet 5/325) 1 tab PRN DAILY PRN PO MODERATE PAIN Last administered on 03/23/18 06:11; Start 03/20/18 at 08:30 Pantoprazole Sodium (Protonix) 40 mg DAILYAC PO Last administered on 03/23/18 06:10; Start 03/20/18 at 09:00 Pregabalin (Lyrica) 75 mg BID PO Last administered on 03/23/18 09:38; Start at 09:00 Dicyclomine HCl (Bentyl) 20 mg TID PO Last administered on 03/23/18 09:40; Start 03/20/18 at 09:00 Fluoxetine HCl (PROzac) 80 mg DAILY PO Last administered on 03/23/18 09:37; Start 03/20/18 at 09:00 Fluphenazine HCl (Prolixin) 2.5 mg BID PO Last administered on 03/23/18 09:37 ; Start 03/20/18 at 09:00 Levothyroxine Sodium (Synthroid) 25 mcg DAILY06 PO Last administered on 06:10; Start 03/20/18 at 09:00 Multi-Ingred Cream/Lotion/Oil/ Oint (Hydrocerin Cream) 1 ector BID TP ; Start at 09:00 Morphine Sulfate (Roxanol Conc) 10 mg PRN Q1HR PRN SL SEVERE PAIN; Start at 08:45 Polyethylene Glycol (miraLAX PACKET) 17 gm DAILY PO Last administered on 09:35; Start 03/20/18 at 09:00 Thiamine Mononitrate (Vitamin B-1) 100 mg DAILY PO Last administered on 09:39; Start 03/20/18 at 09:00 Trazodone HCl (Desyrel) 150 mg QHS PO Last administered on 03/22/18 20:34; Start 03/20/18 at 21:00 Nystatin (Nystatin Oral Susp) 5 ml [id number] Last administered on 03/23/18 09:36; Start 03/20/18 at 13:00 Multi-Ingredient Mouthwash/Gargle (Gi Cocktail) 20 ml PRN QID PRN PO odynophagia Last administered on 03/20/18 13:54; Start 03/20/18 at 12:30 Fluconazole (Diflucan) 100 mg DAILY PO Last administered on 03/23/18 09:40; Start 03/21/18 at 11:30 Active Scripts Active Reported Tylenol (Acetaminophen) 325 Mg Tablet 650 Mg PO Q6HRS PRN Miralax (Polyethylene Glycol 3350) 17 Gm Powd.pack 1 Packet PO DAILY Lipitor (Atorvastatin Calcium) 10 Mg Tablet 1 Tab PO QHS Cymbalta (Duloxetine Hcl) 30 Mg Capsule.dr 1 Cap PO DAILY Ativan (Lorazepam) 0.5 Mg Tablet 1 Mg PO Q4HRS PRN Percocet 5-325 Mg Tablet (Oxycodone/Acetaminophen) 1 Each Tablet 1 Tab PO BID FENTANYL 25mcg/hr (Fentanyl) 1 Each Patch.td72 1 Patch TD Q72H Aquaphor Ointment (Mineral Oil/Hydrophil Petrolat) 396 Gm Oint...g. 396 Gm TP BID Zofran Odt (Ondansetron) 4 Mg Tab.rapdis 1 Tab SL Q6HRS PRN Morphine Sulfate 20 Mg/5 Ml Solution 20 Mg PO 0.5CC HOURLY Percocet 5-325 Mg Tablet (Oxycodone/Acetaminophen) 1 Each Tablet 1 Tab PO DAILY PRN NITROGLYCERIN SubLingual (Nitroglycerin) 0.4 Mg Tab.subl 0.4 Mg SL PRN Q5MIN PRN Fluphenazine Hcl 5 Mg Tablet 2.5 Mg PO BID Dicyclomine Hcl 20 Mg Tablet 1 Tab PO TID Vitamin D3 (Cholecalciferol (Vitamin D3)) 1,000 Unit Tablet 1,000 Unit PO DAILY Vitamin B-1 (Thiamine Mononitrate) 100 Mg Tablet 100 Mg PO DAILY Trazodone Hcl 150 Mg Tablet 150 Mg PO HS Prozac (Fluoxetine Hcl) 40 Mg Capsule 80 Mg PO DAILY Lyrica (Pregabalin) 75 Mg Capsule 75 Mg PO BID Protonix (Pantoprazole Sodium) 40 Mg Tablet.dr 40 Mg PO DAILY Levothyroxine Sodium 25 Mcg Tablet 25 Mcg PO DAILYAC Ketoconazole 120 Ml Shampoo 1 Ector TP WEEKLY ON SUNDAY Fludrocortisone Acetate 0.1 Mg Tablet 0.1 Mg PO DAILY Ferrous Sulfate 325 Mg Tablet 325 Mg PO DAILY Baclofen 10 Mg Tablet 5 Mg PO TID Aspirin 81 Mg Tab.chew 81 Mg PO DAILY Vitals/I & O Vital Sign - Last 24 Hours 03/22/18 03/22/18 03/22/18 03/22/18 15:00 19:50 20:10 20:35 Temp 98.3 98.2 98.3 98.2 Pulse 50 64 Resp 14 16 18 B/P (MAP) 135/74 (94) 125/73 (90) Pulse Ox 92 95 95 O2 Delivery Room Air Room Air Room Air Room Air 03/22/18 03/23/18 03/23/18 03/23/18 23:00 03:00 06:11 07:00 Temp 98.1 97.7 97.9 98.1 97.7 97.9 Pulse 51 47 59 Resp 16 16 20 16 B/P (MAP) 132/52 (78) 162/71 (101) 129/40 (69) Pulse Ox 93 95 95 92 O2 Delivery Room Air Room Air Room Air Room Air 03/23/18 03/23/18 03/23/18 03/23/18 07:15 09:36 09:39 10:45 Pulse Ox 95 95 95 95 O2 Delivery Room Air Room Air Room Air Room Air 03/23/18 11:00 Temp 98.6 98.6 Pulse 58 Resp 18 B/P (MAP) 148/82 (104) Pulse Ox 94 O2 Delivery Room Air Intake and Output 03/22/18 03/22/18 03/23/18 15:00 23:00 07:00 Intake Total 400 ml Balance 400 ml Problem List Problems Medical Problems: (1) Intractable pain Status: Acute Assessment Odynophagia- on antifungal therapy, slow improving, endoscopy if no resolution of symptoms next week DEBO KOHELER MD Mar 23, 2018 13:35
[2018-03-23 15:00] VITALS: BP 149/86
[2018-03-23 19:00] VITALS: BP 170/70
[2018-03-23] MEDS: traZODone 50 MG TABLET. PO SCH (21:37)
[2018-03-23] MEDS: ATORVASTATIN CALCIUM 10 MG TABLET. PO SCH (21:37)
[2018-03-23 23:00] VITALS: BP 183/66
[2018-03-24 03:00] VITALS: BP 182/74
[2018-03-24] MEDS: oxyCODONE/APAP 5/325 1 TAB TABLET PO PRN (03:48)
[2018-03-24] MEDS: PANTOPRAZOLE 40 MG TABLET.DR. PO SCH (05:45)
[2018-03-24] MEDS: LEVOTHYROXINE 25 MCG TABLET. PO SCH (05:45)
[2018-03-24 07:00] VITALS: BP 140/66
[2018-03-24 08:29] LABS: BASO % 1 % (0-3); EOS # 0.2 x10^3/uL (0.0-0.7); EOS % 5 % (0-3); HEMATOCRIT 34.1 % (39.0-53.0); HEMOGLOBIN 10.5 g/dL (13.0-17.5); LYMPH # 1.2 x10^3/uL (1.0-4.8); LYMPH % 33 % (24-48); MEAN CORPUSCULAR HEMOGLOBIN 20 pg (25-35); MEAN CORPUSCULAR HGB CONC 31 g/dL (31-37); MEAN CORPUSCULAR VOLUME 65 fL (79-100); MONO # 0.4 x10^3/uL (0.0-1.1); MONO % 11 % (0-9); NEUT # 1.8 x10^3uL (1.8-7.7); NEUT % 50 % (31-73); PLATELET COUNT 141 x10^3/uL (140-400); RED BLOOD COUNT 5.25 x10^6/uL (4.30-5.70); RED CELL DISTRIBUTION WIDTH 19.6 % (11.5-14.5); WHITE BLOOD COUNT 3.6 x10^3/uL (4.0-11.0)
[2018-03-24 08:32] LABS: CALCIUM 8.7 mg/dL (8.5-10.1); CREATININE 0.8 mg/dL (0.7-1.3); GFR 98.6; POTASSIUM 3.9 mmol/L (3.5-5.1)
[2018-03-24] MEDS: POLYETHYLENE GLYCOL 3350 17 GM PACKET. PO SCH ×2 (09:00→09:06)
[2018-03-24] MEDS: MINERAL OIL/PETROLATUM TOPICAL CREAM 113GM JAR. TP SCH ×2 (09:00→21:27)
[2018-03-24] MEDS: NYSTATIN 100,000 UNITS/ML 5 ML ORAL.SUSP. SWSW SCH ×4 (09:06→21:24)
[2018-03-24] MEDS: BACLOFEN 10 MG TABLET. PO SCH ×3 (09:07→21:25)
[2018-03-24] MEDS: DICYCLOMINE HCL 10 MG CAPSULE PO SCH ×3 (09:07→21:24)
[2018-03-24] MEDS: FLUPHENAZINE HCL 2.5 MG TABLET. PO SCH ×2 (09:07→21:24)
[2018-03-24] MEDS: FLUDROCORTISONE 0.1 MG TABLET PO SCH (09:07)
[2018-03-24] MEDS: FLUoxetine HCL 20 MG CAPSULE PO SCH (09:07)
[2018-03-24] MEDS: CHOLECALCIFEROL (VITAMIN D3) 1,000 UNIT TABLET PO SCH (09:07)
[2018-03-24] MEDS: FERROUS SULFATE 325 MG TABLET. PO SCH (09:07)
[2018-03-24] MEDS: DULoxetine HCL 30 MG CAPSULE.DR PO SCH (09:07)
[2018-03-24] MEDS: FLUCONAZOLE 100 MG TABLET. PO SCH (09:07)
[2018-03-24] MEDS: oxyCODONE/APAP 5/325 1 TAB TABLET PO SCH ×2 (09:08→21:24)
[2018-03-24] MEDS: THIAMINE 100 MG TABLET. PO SCH (09:08)
[2018-03-24] MEDS: PREGABALIN 75 MG CAPSULE PO SCH ×2 (09:08→21:25)
[2018-03-24 11:00] VITALS: BP 120/52
--- NOTE | 2018-03-24 13:29 | PDOC ---
PROGRESS NOTES Chief Complaint Chief Complaint Tonsillar CA Stage 3 intractable pain odynophagia, dysphagia, difftls include infectious in etiology versus radiation esophagitis Throat/chest pain in a cancer pt did course of radiation Anemia of cancer Cachexia Hypertension, controlled Moderate to severe PCM History of cardiac hx - otherwise chronic stable History of Present Illness History of Present Illness Pt seen and examined Resting in bed NAD Vitals Vitals Vital Signs Date Time Temp Pulse Resp B/P (MAP) Pulse Ox O2 Delivery O2 Flow Rate FiO2 03/24/18 11:00 97.9 45 18 120/52 (74) 95 Room Air 97.9 03/23/18 22:38 2.0 Physical Exam General: Alert, Oriented X3, Cooperative, No acute distress Heart: Regular rate, Normal S1, Normal S2 Lungs: Clear, Crackles Abdomen: Normal bowel sounds, Soft, No tenderness, No hepatosplenomegaly, No masses Extremities: No clubbing, No cyanosis, No edema, Normal pulses, No tenderness/ swelling Skin: No rashes, No breakdown, No significant lesion Labs LABS Laboratory Tests Test 03/24/18 07:05 White Blood Count 3.6 x10^3/uL (4.0-11.0) Red Blood Count 5.25 x10^6/uL (4.30-5.70) Hemoglobin 10.5 g/dL (13.0-17.5) Hematocrit 34.1 % (39.0-53.0) Mean Corpuscular Volume 65 fL (79-100) Mean Corpuscular Hemoglobin 20 pg (25-35) Mean Corpuscular Hemoglobin Concent 31 g/dL (31-37) Red Cell Distribution Width 19.6 % (11.5-14.5) Platelet Count 141 x10^3/uL (140-400) Neutrophils (%) (Auto) 50 % (31-73) Lymphocytes (%) (Auto) 33 % (24-48) Monocytes (%) (Auto) 11 % (0-9) Eosinophils (%) (Auto) 5 % (0-3) Basophils (%) (Auto) 1 % (0-3) Neutrophils # (Auto) 1.8 x10^3uL (1.8-7.7) Lymphocytes # (Auto) 1.2 x10^3/uL (1.0-4.8) Monocytes # (Auto) 0.4 x10^3/uL (0.0-1.1) Eosinophils # (Auto) 0.2 x10^3/uL (0.0-0.7) Basophils # (Auto) 0.0 x10^3/uL (0.0-0.2) Sodium Level 139 mmol/L (136-145) Potassium Level 3.9 mmol/L (3.5-5.1) Chloride Level 103 mmol/L (98-107) Carbon Dioxide Level 29 mmol/L (21-32) Anion Gap 7 (6-14) Blood Urea Nitrogen 12 mg/dL (8-26) Creatinine 0.8 mg/dL (0.7-1.3) Estimated GFR (Cockcroft-Gault) 98.6 Glucose Level 82 mg/dL (70-99) Calcium Level 8.7 mg/dL (8.5-10.1) Review of Systems Review of Systems Complains of throat pain Denies N/V Denies DEJESUS Assessment and Plan Assessmemt and Plan Tonsillar CA Stage 3 intractable pain odynophagia, dysphagia, difftls include infectious in etiology versus radiation esophagitis Throat/chest pain in a cancer pt did course of radiation Anemia of cancer Cachexia Hypertension, controlled Moderate to severe PCM History of cardiac hx - otherwise chronic stable Plan: Awaiting EGD Labs PT/OT Home meds Analgesics for pain f/u with GI Comment Review of Relevant I have reviewed the following items josé miguel (where applicable) has been applied. Labs Laboratory Tests Test 03/24/18 07:05 White Blood Count 3.6 x10^3/uL (4.0-11.0) Red Blood Count 5.25 x10^6/uL (4.30-5.70) Hemoglobin 10.5 g/dL (13.0-17.5) Hematocrit 34.1 % (39.0-53.0) Mean Corpuscular Volume 65 fL (79-100) Mean Corpuscular Hemoglobin 20 pg (25-35) Mean Corpuscular Hemoglobin Concent 31 g/dL (31-37) Red Cell Distribution Width 19.6 % (11.5-14.5) Platelet Count 141 x10^3/uL (140-400) Neutrophils (%) (Auto) 50 % (31-73) Lymphocytes (%) (Auto) 33 % (24-48) Monocytes (%) (Auto) 11 % (0-9) Eosinophils (%) (Auto) 5 % (0-3) Basophils (%) (Auto) 1 % (0-3) Neutrophils # (Auto) 1.8 x10^3uL (1.8-7.7) Lymphocytes # (Auto) 1.2 x10^3/uL (1.0-4.8) Monocytes # (Auto) 0.4 x10^3/uL (0.0-1.1) Eosinophils # (Auto) 0.2 x10^3/uL (0.0-0.7) Basophils # (Auto) 0.0 x10^3/uL (0.0-0.2) Sodium Level 139 mmol/L (136-145) Potassium Level 3.9 mmol/L (3.5-5.1) Chloride Level 103 mmol/L (98-107) Carbon Dioxide Level 29 mmol/L (21-32) Anion Gap 7 (6-14) Blood Urea Nitrogen 12 mg/dL (8-26) Creatinine 0.8 mg/dL (0.7-1.3) Estimated GFR (Cockcroft-Gault) 98.6 Glucose Level 82 mg/dL (70-99) Calcium Level 8.7 mg/dL (8.5-10.1) Laboratory Tests Test 03/24/18 07:05 White Blood Count 3.6 x10^3/uL (4.0-11.0) Red Blood Count 5.25 x10^6/uL (4.30-5.70) Hemoglobin 10.5 g/dL (13.0-17.5) Hematocrit 34.1 % (39.0-53.0) Mean Corpuscular Volume 65 fL (79-100) Mean Corpuscular Hemoglobin 20 pg (25-35) Mean Corpuscular Hemoglobin Concent 31 g/dL (31-37) Red Cell Distribution Width 19.6 % (11.5-14.5) Platelet Count 141 x10^3/uL (140-400) Neutrophils (%) (Auto) 50 % (31-73) Lymphocytes (%) (Auto) 33 % (24-48) Monocytes (%) (Auto) 11 % (0-9) Eosinophils (%) (Auto) 5 % (0-3) Basophils (%) (Auto) 1 % (0-3) Neutrophils # (Auto) 1.8 x10^3uL (1.8-7.7) Lymphocytes # (Auto) 1.2 x10^3/uL (1.0-4.8) Monocytes # (Auto) 0.4 x10^3/uL (0.0-1.1) Eosinophils # (Auto) 0.2 x10^3/uL (0.0-0.7) Basophils # (Auto) 0.0 x10^3/uL (0.0-0.2) Sodium Level 139 mmol/L (136-145) Potassium Level 3.9 mmol/L (3.5-5.1) Chloride Level 103 mmol/L (98-107) Carbon Dioxide Level 29 mmol/L (21-32) Anion Gap 7 (6-14) Blood Urea Nitrogen 12 mg/dL (8-26) Creatinine 0.8 mg/dL (0.7-1.3) Estimated GFR (Cockcroft-Gault) 98.6 Glucose Level 82 mg/dL (70-99) Calcium Level 8.7 mg/dL (8.5-10.1) Medications Current Medications Fentanyl Citrate (Fentanyl 2ml Vial) 75 mcg 1X ONCE IV Last administered on at 21:10; Start 03/19/18 at 21:00; Stop 03/19/18 at 21:01; Status DC Ondansetron HCl (Zofran) 4 mg 1X ONCE IV Last administered on 03/19/18at 21:09 ; Start 03/19/18 at 21:00; Stop 03/19/18 at 21:01; Status DC Ondansetron HCl (Zofran) 4 mg PRN Q8HRS PRN IV NAUSEA/VOMITING; Start 03/19/18 at 22:15; Stop 03/20/18 at 08:28; Status DC Morphine Sulfate (Morphine Sulfate) 4 mg PRN Q2HR PRN IV PAIN MODERATE Last administered on 03/20/18at 05:43; Start 03/19/18 at 22:15; Stop 03/20/18 at 22:14 ; Status DC Fentanyl Citrate (Fentanyl 2ml Vial) 50 mcg PRN Q2HR PRN IV PAIN SEVERE Last administered on 03/20/18at 14:01; Start 03/19/18 at 22:15; Stop 03/20/18 at 22:14 ; Status DC Sodium Chloride 1,000 ml @ 125 mls/hr Q8H IV Last administered on 03/20/18at 16 :51; Start 03/19/18 at 22:15; Stop 03/20/18 at 22:14; Status DC Acetaminophen (Tylenol) 650 mg PRN Q4HRS PRN PO FEVER; Start 03/19/18 at 22:15 ; Stop 03/20/18 at 08:30; Status DC Albuterol/ Ipratropium (Duoneb) 3 ml RTQID NEB Last administered on 03/21/18at 07:19; Start 03/20/18 at 08:00; Stop 03/21/18 at 07:59; Status DC Ondansetron HCl (Zofran) 4 mg PRN Q6HRS PRN IV NAUSEA/VOMITING; Start 03/20/18 at 08:30 Acetaminophen (Tylenol) 650 mg PRN Q6HRS PRN PO MILD PAIN / TEMP; Start at 08:30 Atorvastatin Calcium (Lipitor) 10 mg QHS PO Last administered on 03/23/18at 21: 37; Start 03/20/18 at 21:00 Baclofen (Lioresal) 5 mg TID PO Last administered on 03/24/18at 09:07; Start at 09:00 Vitamin D (Vitamin D3) 1,000 unit DAILY PO Last administered on 03/24/18at 09:07 ; Start 03/20/18 at 09:00 Duloxetine HCl (Cymbalta) 30 mg DAILY PO Last administered on 03/24/18 09:07; Start 03/20/18 at 09:00 Fentanyl (Duragesic 25mcg/ Hr Patch) 1 patch Q72H TD Last administered on at 09:36; Start 03/20/18 at 09:00 Ferrous Sulfate (Feosol) 325 mg DAILY PO Last administered on 03/24/18at 09:07; Start 03/20/18 at 09:00 Fludrocortisone Acetate (Florinef) 0.1 mg DAILY PO Last administered on at 09:07; Start 03/20/18 at 09:00 Lorazepam (Ativan) 1 mg PRN Q4HRS PRN PO ANXIETY / AGITATION; Start 03/20/18 at 08:30 Nitroglycerin (Nitrostat) 0.4 mg PRN Q5MIN PRN SL CHEST PAIN; Start 03/20/18 at 08:30 Ondansetron HCl (Zofran Odt) 4 mg PRN Q6HRS PRN PO NAUSEA/VOMITING; Start 03/20 at 08:30 Oxycodone/ Acetaminophen (Percocet 5/325) 1 tab BID PO Last administered on at 09:08; Start 03/20/18 at 09:00 Oxycodone/ Acetaminophen (Percocet 5/325) 1 tab PRN DAILY PRN PO MODERATE PAIN Last administered on 03/24/18at 03:48; Start 03/20/18 at 08:30 Pantoprazole Sodium (Protonix) 40 mg DAILYAC PO Last administered on 03/24/18at 05:45; Start 03/20/18 at 09:00 Pregabalin (Lyrica) 75 mg BID PO Last administered on 03/24/18at 09:08; Start at 09:00 Dicyclomine HCl (Bentyl) 20 mg TID PO Last administered on 03/24/18at 09:07; Start 03/20/18 at 09:00 Fluoxetine HCl (PROzac) 80 mg DAILY PO Last administered on 03/24/18at 09:07; Start 03/20/18 at 09:00 Fluphenazine HCl (Prolixin) 2.5 mg BID PO Last administered on 03/24/18at 09:07 ; Start 03/20/18 at 09:00 Levothyroxine Sodium (Synthroid) 25 mcg DAILY06 PO Last administered on at 05:45; Start 03/20/18 at 09:00 Multi-Ingred Cream/Lotion/Oil/ Oint (Hydrocerin Cream) 1 ector BID TP ; Start at 09:00 Morphine Sulfate (Roxanol Conc) 10 mg PRN Q1HR PRN SL SEVERE PAIN; Start at 08:45 Polyethylene Glycol (miraLAX PACKET) 17 gm DAILY PO Last administered on at 09:35; Start 03/20/18 at 09:00 Thiamine Mononitrate (Vitamin B-1) 100 mg DAILY PO Last administered on 09:08; Start 03/20/18 at 09:00 Trazodone HCl (Desyrel) 150 mg QHS PO Last administered on 03/23/18at 21:37; Start 03/20/18 at 21:00 Nystatin (Nystatin Oral Susp) 5 ml [id number] Last administered on 03/24/18 09:06; Start 03/20/18 at 13:00 Multi-Ingredient Mouthwash/Gargle (Gi Cocktail) 20 ml PRN QID PRN PO odynophagia Last administered on 03/20/18at 13:54; Start 03/20/18 at 12:30 Fluconazole (Diflucan) 100 mg DAILY PO Last administered on 03/24/18 09:07; Start 03/21/18 at 11:30 Active Scripts Active Reported Tylenol (Acetaminophen) 325 Mg Tablet 650 Mg PO Q6HRS PRN Miralax (Polyethylene Glycol 3350) 17 Gm Powd.pack 1 Packet PO DAILY Lipitor (Atorvastatin Calcium) 10 Mg Tablet 1 Tab PO QHS Cymbalta (Duloxetine Hcl) 30 Mg Capsule.dr 1 Cap PO DAILY Ativan (Lorazepam) 0.5 Mg Tablet 1 Mg PO Q4HRS PRN Percocet 5-325 Mg Tablet (Oxycodone/Acetaminophen) 1 Each Tablet 1 Tab PO BID FENTANYL 25mcg/hr (Fentanyl) 1 Each Patch.td72 1 Patch TD Q72H Aquaphor Ointment (Mineral Oil/Hydrophil Petrolat) 396 Gm Oint...g. 396 Gm TP BID Zofran Odt (Ondansetron) 4 Mg Tab.rapdis 1 Tab SL Q6HRS PRN Morphine Sulfate 20 Mg/5 Ml Solution 20 Mg PO 0.5CC HOURLY Percocet 5-325 Mg Tablet (Oxycodone/Acetaminophen) 1 Each Tablet 1 Tab PO DAILY PRN NITROGLYCERIN SubLingual (Nitroglycerin) 0.4 Mg Tab.subl 0.4 Mg SL PRN Q5MIN PRN Fluphenazine Hcl 5 Mg Tablet 2.5 Mg PO BID Dicyclomine Hcl 20 Mg Tablet 1 Tab PO TID Vitamin D3 (Cholecalciferol (Vitamin D3)) 1,000 Unit Tablet 1,000 Unit PO DAILY Vitamin B-1 (Thiamine Mononitrate) 100 Mg Tablet 100 Mg PO DAILY Trazodone Hcl 150 Mg Tablet 150 Mg PO HS Prozac (Fluoxetine Hcl) 40 Mg Capsule 80 Mg PO DAILY Lyrica (Pregabalin) 75 Mg Capsule 75 Mg PO BID Protonix (Pantoprazole Sodium) 40 Mg Tablet.dr 40 Mg PO DAILY Levothyroxine Sodium 25 Mcg Tablet 25 Mcg PO DAILYAC Ketoconazole 120 Ml Shampoo 1 Ector TP WEEKLY ON SUNDAY Fludrocortisone Acetate 0.1 Mg Tablet 0.1 Mg PO DAILY Ferrous Sulfate 325 Mg Tablet 325 Mg PO DAILY Baclofen 10 Mg Tablet 5 Mg PO TID Aspirin 81 Mg Tab.chew 81 Mg PO DAILY Vitals/I & O Vital Sign - Last 24 Hours 03/23/18 03/23/18 03/23/18 03/23/18 13:45 15:00 19:00 20:30 Temp 98.0 98.0 98.0 98.0 Pulse 50 50 Resp 16 16 B/P (MAP) 149/86 (107) 170/70 (103) Pulse Ox 94 90 98 O2 Delivery Room Air Room Air Room Air Room Air O2 Flow Rate 2.0 03/23/18 03/23/18 03/23/18 03/24/18 21:38 22:38 23:00 03:00 Temp 97.9 97.7 97.9 97.7 Pulse 53 60 Resp 16 16 B/P (MAP) 183/66 (105) 182/74 (110) Pulse Ox 98 92 94 O2 Delivery Room Air Room Air Room Air O2 Flow Rate 2.0 2.0 03/24/18 03/24/18 03/24/18 03/24/18 03:48 04:50 07:00 08:30 Temp 97.8 97.8 Pulse 48 Resp 18 16 B/P (MAP) 140/66 (90) Pulse Ox 92 92 92 O2 Delivery Room Air Room Air Room Air 03/24/18 03/24/18 03/24/18 09:08 10:10 11:00 Temp 97.9 97.9 Pulse 45 Resp 18 17 18 B/P (MAP) 120/52 (74) Pulse Ox 92 92 95 O2 Delivery Room Air Room Air Room Air Intake and Output 03/23/18 03/23/18 03/24/18 15:00 23:00 07:00 Intake Total 120 ml Balance 120 ml GAYLE ZHAO III, DO Mar 24, 2018 13:29
--- NOTE | 2018-03-24 14:13 | PDOC ---
G I PROGRESS NOTE Reason for Follow-up Painful swallowing Subjective Pain slightly improved Physical Exam Lungs clear CV S1 S2 ABD +BS, soft, nontender Review of Relevant I have reviewed the following items josé miguel (where applicable) has been applied. Labs Laboratory Tests Test 03/24/18 07:05 White Blood Count 3.6 x10^3/uL (4.0-11.0) Red Blood Count 5.25 x10^6/uL (4.30-5.70) Hemoglobin 10.5 g/dL (13.0-17.5) Hematocrit 34.1 % (39.0-53.0) Mean Corpuscular Volume 65 fL (79-100) Mean Corpuscular Hemoglobin 20 pg (25-35) Mean Corpuscular Hemoglobin Concent 31 g/dL (31-37) Red Cell Distribution Width 19.6 % (11.5-14.5) Platelet Count 141 x10^3/uL (140-400) Neutrophils (%) (Auto) 50 % (31-73) Lymphocytes (%) (Auto) 33 % (24-48) Monocytes (%) (Auto) 11 % (0-9) Eosinophils (%) (Auto) 5 % (0-3) Basophils (%) (Auto) 1 % (0-3) Neutrophils # (Auto) 1.8 x10^3uL (1.8-7.7) Lymphocytes # (Auto) 1.2 x10^3/uL (1.0-4.8) Monocytes # (Auto) 0.4 x10^3/uL (0.0-1.1) Eosinophils # (Auto) 0.2 x10^3/uL (0.0-0.7) Basophils # (Auto) 0.0 x10^3/uL (0.0-0.2) Sodium Level 139 mmol/L (136-145) Potassium Level 3.9 mmol/L (3.5-5.1) Chloride Level 103 mmol/L (98-107) Carbon Dioxide Level 29 mmol/L (21-32) Anion Gap 7 (6-14) Blood Urea Nitrogen 12 mg/dL (8-26) Creatinine 0.8 mg/dL (0.7-1.3) Estimated GFR (Cockcroft-Gault) 98.6 Glucose Level 82 mg/dL (70-99) Calcium Level 8.7 mg/dL (8.5-10.1) Laboratory Tests Test 03/24/18 07:05 White Blood Count 3.6 x10^3/uL (4.0-11.0) Red Blood Count 5.25 x10^6/uL (4.30-5.70) Hemoglobin 10.5 g/dL (13.0-17.5) Hematocrit 34.1 % (39.0-53.0) Mean Corpuscular Volume 65 fL (79-100) Mean Corpuscular Hemoglobin 20 pg (25-35) Mean Corpuscular Hemoglobin Concent 31 g/dL (31-37) Red Cell Distribution Width 19.6 % (11.5-14.5) Platelet Count 141 x10^3/uL (140-400) Neutrophils (%) (Auto) 50 % (31-73) Lymphocytes (%) (Auto) 33 % (24-48) Monocytes (%) (Auto) 11 % (0-9) Eosinophils (%) (Auto) 5 % (0-3) Basophils (%) (Auto) 1 % (0-3) Neutrophils # (Auto) 1.8 x10^3uL (1.8-7.7) Lymphocytes # (Auto) 1.2 x10^3/uL (1.0-4.8) Monocytes # (Auto) 0.4 x10^3/uL (0.0-1.1) Eosinophils # (Auto) 0.2 x10^3/uL (0.0-0.7) Basophils # (Auto) 0.0 x10^3/uL (0.0-0.2) Sodium Level 139 mmol/L (136-145) Potassium Level 3.9 mmol/L (3.5-5.1) Chloride Level 103 mmol/L (98-107) Carbon Dioxide Level 29 mmol/L (21-32) Anion Gap 7 (6-14) Blood Urea Nitrogen 12 mg/dL (8-26) Creatinine 0.8 mg/dL (0.7-1.3) Estimated GFR (Cockcroft-Gault) 98.6 Glucose Level 82 mg/dL (70-99) Calcium Level 8.7 mg/dL (8.5-10.1) Medications Current Medications Fentanyl Citrate (Fentanyl 2ml Vial) 75 mcg 1X ONCE IV Last administered on at 21:10; Start 03/19/18 at 21:00; Stop 03/19/18 at 21:01; Status DC Ondansetron HCl (Zofran) 4 mg 1X ONCE IV Last administered on 03/19/18at 21:09 ; Start 03/19/18 at 21:00; Stop 03/19/18 at 21:01; Status DC Ondansetron HCl (Zofran) 4 mg PRN Q8HRS PRN IV NAUSEA/VOMITING; Start 03/19/18 at 22:15; Stop 03/20/18 at 08:28; Status DC Morphine Sulfate (Morphine Sulfate) 4 mg PRN Q2HR PRN IV PAIN MODERATE Last administered on 03/20/18at 05:43; Start 03/19/18 at 22:15; Stop 03/20/18 at 22:14 ; Status DC Fentanyl Citrate (Fentanyl 2ml Vial) 50 mcg PRN Q2HR PRN IV PAIN SEVERE Last administered on 03/20/18at 14:01; Start 03/19/18 at 22:15; Stop 03/20/18 at 22:14 ; Status DC Sodium Chloride 1,000 ml @ 125 mls/hr Q8H IV Last administered on 03/20/18at 16 :51; Start 03/19/18 at 22:15; Stop 03/20/18 at 22:14; Status DC Acetaminophen (Tylenol) 650 mg PRN Q4HRS PRN PO FEVER; Start 03/19/18 at 22:15 ; Stop 03/20/18 at 08:30; Status DC Albuterol/ Ipratropium (Duoneb) 3 ml RTQID NEB Last administered on 03/21/18at 07:19; Start 03/20/18 at 08:00; Stop 03/21/18 at 07:59; Status DC Ondansetron HCl (Zofran) 4 mg PRN Q6HRS PRN IV NAUSEA/VOMITING; Start 03/20/18 at 08:30 Acetaminophen (Tylenol) 650 mg PRN Q6HRS PRN PO MILD PAIN / TEMP; Start at 08:30 Atorvastatin Calcium (Lipitor) 10 mg QHS PO Last administered on 03/23/18at 21: 37; Start 03/20/18 at 21:00 Baclofen (Lioresal) 5 mg TID PO Last administered on 03/24/18 14:01; Start at 09:00 Vitamin D (Vitamin D3) 1,000 unit DAILY PO Last administered on 03/24/18 09:07 ; Start 03/20/18 at 09:00 Duloxetine HCl (Cymbalta) 30 mg DAILY PO Last administered on 03/24/18 09:07; Start 03/20/18 at 09:00 Fentanyl (Duragesic 25mcg/ Hr Patch) 1 patch Q72H TD Last administered on 09:36; Start 03/20/18 at 09:00 Ferrous Sulfate (Feosol) 325 mg DAILY PO Last administered on 03/24/18 09:07; Start 03/20/18 at 09:00 Fludrocortisone Acetate (Florinef) 0.1 mg DAILY PO Last administered on 09:07; Start 03/20/18 at 09:00 Lorazepam (Ativan) 1 mg PRN Q4HRS PRN PO ANXIETY / AGITATION; Start 03/20/18 at 08:30 Nitroglycerin (Nitrostat) 0.4 mg PRN Q5MIN PRN SL CHEST PAIN; Start 03/20/18 at 08:30 Ondansetron HCl (Zofran Odt) 4 mg PRN Q6HRS PRN PO NAUSEA/VOMITING; Start 03/20 at 08:30 Oxycodone/ Acetaminophen (Percocet 5/325) 1 tab BID PO Last administered on 09:08; Start 03/20/18 at 09:00 Oxycodone/ Acetaminophen (Percocet 5/325) 1 tab PRN DAILY PRN PO MODERATE PAIN Last administered on 03/24/18 03:48; Start 03/20/18 at 08:30 Pantoprazole Sodium (Protonix) 40 mg DAILYAC PO Last administered on 03/24/18 05:45; Start 03/20/18 at 09:00 Pregabalin (Lyrica) 75 mg BID PO Last administered on 03/24/18 09:08; Start at 09:00 Dicyclomine HCl (Bentyl) 20 mg TID PO Last administered on 03/24/18 14:01; Start 03/20/18 at 09:00 Fluoxetine HCl (PROzac) 80 mg DAILY PO Last administered on 03/24/18 09:07; Start 03/20/18 at 09:00 Fluphenazine HCl (Prolixin) 2.5 mg BID PO Last administered on 03/24/18 09:07 ; Start 03/20/18 at 09:00 Levothyroxine Sodium (Synthroid) 25 mcg DAILY06 PO Last administered on 05:45; Start 03/20/18 at 09:00 Multi-Ingred Cream/Lotion/Oil/ Oint (Hydrocerin Cream) 1 ector BID TP ; Start at 09:00 Morphine Sulfate (Roxanol Conc) 10 mg PRN Q1HR PRN SL SEVERE PAIN; Start at 08:45 Polyethylene Glycol (miraLAX PACKET) 17 gm DAILY PO Last administered on 09:35; Start 03/20/18 at 09:00 Thiamine Mononitrate (Vitamin B-1) 100 mg DAILY PO Last administered on 09:08; Start 03/20/18 at 09:00 Trazodone HCl (Desyrel) 150 mg QHS PO Last administered on 03/23/18 21:37; Start 03/20/18 at 21:00 Nystatin (Nystatin Oral Susp) 5 ml [id number] Last administered on 03/24/18 14:01; Start 03/20/18 at 13:00 Multi-Ingredient Mouthwash/Gargle (Gi Cocktail) 20 ml PRN QID PRN PO odynophagia Last administered on 03/20/18 13:54; Start 03/20/18 at 12:30 Fluconazole (Diflucan) 100 mg DAILY PO Last administered on 03/24/18 09:07; Start 03/21/18 at 11:30 Active Scripts Active Reported Tylenol (Acetaminophen) 325 Mg Tablet 650 Mg PO Q6HRS PRN Miralax (Polyethylene Glycol 3350) 17 Gm Powd.pack 1 Packet PO DAILY Lipitor (Atorvastatin Calcium) 10 Mg Tablet 1 Tab PO QHS Cymbalta (Duloxetine Hcl) 30 Mg Capsule.dr 1 Cap PO DAILY Ativan (Lorazepam) 0.5 Mg Tablet 1 Mg PO Q4HRS PRN Percocet 5-325 Mg Tablet (Oxycodone/Acetaminophen) 1 Each Tablet 1 Tab PO BID FENTANYL 25mcg/hr (Fentanyl) 1 Each Patch.td72 1 Patch TD Q72H Aquaphor Ointment (Mineral Oil/Hydrophil Petrolat) 396 Gm Oint...g. 396 Gm TP BID Zofran Odt (Ondansetron) 4 Mg Tab.rapdis 1 Tab SL Q6HRS PRN Morphine Sulfate 20 Mg/5 Ml Solution 20 Mg PO 0.5CC HOURLY Percocet 5-325 Mg Tablet (Oxycodone/Acetaminophen) 1 Each Tablet 1 Tab PO DAILY PRN NITROGLYCERIN SubLingual (Nitroglycerin) 0.4 Mg Tab.subl 0.4 Mg SL PRN Q5MIN PRN Fluphenazine Hcl 5 Mg Tablet 2.5 Mg PO BID Dicyclomine Hcl 20 Mg Tablet 1 Tab PO TID Vitamin D3 (Cholecalciferol (Vitamin D3)) 1,000 Unit Tablet 1,000 Unit PO DAILY Vitamin B-1 (Thiamine Mononitrate) 100 Mg Tablet 100 Mg PO DAILY Trazodone Hcl 150 Mg Tablet 150 Mg PO HS Prozac (Fluoxetine Hcl) 40 Mg Capsule 80 Mg PO DAILY Lyrica (Pregabalin) 75 Mg Capsule 75 Mg PO BID Protonix (Pantoprazole Sodium) 40 Mg Tablet.dr 40 Mg PO DAILY Levothyroxine Sodium 25 Mcg Tablet 25 Mcg PO DAILYAC Ketoconazole 120 Ml Shampoo 1 Ector TP WEEKLY ON SUNDAY Fludrocortisone Acetate 0.1 Mg Tablet 0.1 Mg PO DAILY Ferrous Sulfate 325 Mg Tablet 325 Mg PO DAILY Baclofen 10 Mg Tablet 5 Mg PO TID Aspirin 81 Mg Tab.chew 81 Mg PO DAILY Vitals/I & O Vital Sign - Last 24 Hours 03/23/18 03/23/18 03/23/18 03/23/18 15:00 19:00 20:30 21:38 Temp 98.0 98.0 98.0 98.0 Pulse 50 50 Resp 16 16 B/P (MAP) 149/86 (107) 170/70 (103) Pulse Ox 90 98 98 O2 Delivery Room Air Room Air Room Air Room Air O2 Flow Rate 2.0 2.0 03/23/18 03/23/18 03/24/18 03/24/18 22:38 23:00 03:00 03:48 Temp 97.9 97.7 97.9 97.7 Pulse 53 60 Resp 16 16 B/P (MAP) 183/66 (105) 182/74 (110) Pulse Ox 92 94 92 O2 Delivery Room Air Room Air Room Air O2 Flow Rate 2.0 03/24/18 03/24/18 03/24/18 03/24/18 04:50 07:00 08:30 09:08 Temp 97.8 97.8 Pulse 48 Resp 18 16 18 B/P (MAP) 140/66 (90) Pulse Ox 92 92 92 O2 Delivery Room Air Room Air Room Air 03/24/18 03/24/18 10:10 11:00 Temp 97.9 97.9 Pulse 45 Resp 17 18 B/P (MAP) 120/52 (74) Pulse Ox 92 95 O2 Delivery Room Air Room Air Intake and Output 03/23/18 03/23/18 03/24/18 15:00 23:00 07:00 Intake Total 120 ml Balance 120 ml Problem List Problems Medical Problems: (1) Intractable pain Status: Acute Assessment Odynophagia- s/p xrt, with possible infectious esophagitis, on antifungal therpay [id number] considering EGD, CPM DEBO KOEHLER MD Mar 24, 2018 14:13
[2018-03-24 15:00] VITALS: BP 130/61
[2018-03-24 19:00] VITALS: BP 159/74
[2018-03-24] MEDS: traZODone 50 MG TABLET. PO SCH (21:24)
[2018-03-24] MEDS: ATORVASTATIN CALCIUM 10 MG TABLET. PO SCH (21:24)
[2018-03-24 23:00] VITALS: BP 130/68
[2018-03-24] MEDS ORDERED: oxyCODONE/APAP 5/325 1 TAB TABLET PO PRN (23:30)
[2018-03-24] MEDS ORDERED: OXYMETAZOLINE 0.05% NASAL SPRAY 30ML BOTTLE. NS PRN (23:30)
[2018-03-25 03:00] VITALS: BP 192/81
[2018-03-25] MEDS ORDERED: MINERAL OIL/PETROLATUM TOPICAL CREAM 113GM JAR. TP PRN ×2 (03:00)
[2018-03-25 05:08] LABS: BASO % 1 % (0-3); EOS # 0.2 x10^3/uL (0.0-0.7); EOS % 6 % (0-3); HEMATOCRIT 35.3 % (39.0-53.0); HEMOGLOBIN 11.3 g/dL (13.0-17.5); LYMPH # 0.9 x10^3/uL (1.0-4.8); LYMPH % 31 % (24-48); MEAN CORPUSCULAR HEMOGLOBIN 21 pg (25-35); MEAN CORPUSCULAR HGB CONC 32 g/dL (31-37); MEAN CORPUSCULAR VOLUME 64 fL (79-100); MONO # 0.3 x10^3/uL (0.0-1.1); MONO % 12 % (0-9); NEUT # 1.4 x10^3uL (1.8-7.7); NEUT % 50 % (31-73); PLATELET COUNT 150 x10^3/uL (140-400); RED BLOOD COUNT 5.48 x10^6/uL (4.30-5.70); RED CELL DISTRIBUTION WIDTH 19.9 % (11.5-14.5); WHITE BLOOD COUNT 2.9 x10^3/uL (4.0-11.0)
[2018-03-25 05:41] LABS: CALCIUM 8.7 mg/dL (8.5-10.1); CREATININE 0.7 mg/dL (0.7-1.3); POTASSIUM 3.7 mmol/L (3.5-5.1)
[2018-03-25] MEDS: LEVOTHYROXINE 25 MCG TABLET. PO SCH (06:18)
[2018-03-25] MEDS: PANTOPRAZOLE 40 MG TABLET.DR. PO SCH (06:18)
[2018-03-25 07:00] VITALS: BP 159/68
--- NOTE | 2018-03-25 09:36 | PDOC ---
Subjective: Subjective: Painful swallowing persists, has been NPO today. Objective: Objective: RN says he wants an EGD, has been NPO today. Vital Signs: Vital Signs Date Time Temp Pulse Resp B/P (MAP) Pulse Ox O2 Delivery O2 Flow Rate FiO2 03/25/18 07:00 96.6 44 16 159/68 (98) 94 Room Air 96.6 03/25/18 04:50 2.0 Labs: Laboratory Tests Test 03/25/18 04:40 White Blood Count 2.9 x10^3/uL Red Blood Count 5.48 x10^6/uL Hemoglobin 11.3 g/dL Hematocrit 35.3 % Mean Corpuscular Volume 64 fL Mean Corpuscular Hemoglobin 21 pg Mean Corpuscular Hemoglobin Concent 32 g/dL Red Cell Distribution Width 19.9 % Platelet Count 150 x10^3/uL Neutrophils (%) (Auto) 50 % Lymphocytes (%) (Auto) 31 % Monocytes (%) (Auto) 12 % Eosinophils (%) (Auto) 6 % Basophils (%) (Auto) 1 % Neutrophils # (Auto) 1.4 x10^3uL Lymphocytes # (Auto) 0.9 x10^3/uL Monocytes # (Auto) 0.3 x10^3/uL Eosinophils # (Auto) 0.2 x10^3/uL Basophils # (Auto) 0.0 x10^3/uL Sodium Level 141 mmol/L Potassium Level 3.7 mmol/L Chloride Level 106 mmol/L Carbon Dioxide Level 31 mmol/L Anion Gap 4 Blood Urea Nitrogen 10 mg/dL Creatinine 0.7 mg/dL Estimated GFR (Cockcroft-Gault) 115.0 Glucose Level 78 mg/dL Calcium Level 8.7 mg/dL PE: GEN: resting, laying on left side LUNGS: clear HEART: RRR ABD: chronically tender NEURO/PSYCH: A & O 3, quiet, takes awhile to answer me A/P: Odynophagia, chronic dysphagia Tonsillar/neck cancer -- Odynophagia persists despite empiric anti-fungal therapy. He now would like to proceed w/ EGD - will schedule for 03/26 @ 1600. May eat regular diet today, then clear for breakfast tomorrow, then NPO by 9:00 a.mJULIAN DIXON Mar 25, 2018 09:36
[2018-03-25] MEDS: NYSTATIN 100,000 UNITS/ML 5 ML ORAL.SUSP. SWSW SCH ×4 (09:42→20:35)
[2018-03-25] MEDS: POLYETHYLENE GLYCOL 3350 17 GM PACKET. PO SCH (09:42)
[2018-03-25] MEDS: FLUDROCORTISONE 0.1 MG TABLET PO SCH (09:42)
[2018-03-25] MEDS: oxyCODONE/APAP 5/325 1 TAB TABLET PO SCH ×2 (09:43→20:31)
[2018-03-25] MEDS: DULoxetine HCL 30 MG CAPSULE.DR PO SCH (09:43)
[2018-03-25] MEDS: CHOLECALCIFEROL (VITAMIN D3) 1,000 UNIT TABLET PO SCH (09:43)
[2018-03-25] MEDS: FLUoxetine HCL 20 MG CAPSULE PO SCH (09:43)
[2018-03-25] MEDS: FLUPHENAZINE HCL 2.5 MG TABLET. PO SCH ×2 (09:44→20:32)
[2018-03-25] MEDS: FLUCONAZOLE 100 MG TABLET. PO SCH (09:44)
[2018-03-25] MEDS: FERROUS SULFATE 325 MG TABLET. PO SCH (09:44)
[2018-03-25] MEDS: PREGABALIN 75 MG CAPSULE PO SCH ×2 (09:44→20:32)
[2018-03-25] MEDS: THIAMINE 100 MG TABLET. PO SCH (09:44)
[2018-03-25] MEDS: BACLOFEN 10 MG TABLET. PO SCH ×3 (09:44→20:31)
[2018-03-25] MEDS: LIDO:MAALOX 1:1 20 ML SINGLE DOSE. PO PRN (10:24)
[2018-03-25] MEDS: DICYCLOMINE HCL 10 MG CAPSULE PO SCH ×3 (10:24→20:31)
[2018-03-25 11:00] VITALS: BP 136/58
[2018-03-25] MEDS ORDERED: PHENOL ORAL SPRAY 177ML BOTTLE. PO PRN (11:45)
--- NOTE | 2018-03-25 11:48 | PDOC ---
PROGRESS NOTES Chief Complaint Chief Complaint Tonsillar CA Stage 3 intractable pain, throat pain, poor PO intake odynophagia, dysphagia, difftls include infectious in etiology versus radiation esophagitis Throat/chest pain in a cancer pt did course of radiation Anemia of cancer Cachexia, moderate to severe PCM Hypertension, controlled History of Present Illness History of Present Illness throat pain, "like razor blades when I try to eat" weakness, pain meds not helping much, severe pain when swallowing lethargic, [facility] Vitals Vitals Vital Signs Date Time Temp Pulse Resp B/P (MAP) Pulse Ox O2 Delivery O2 Flow Rate FiO2 03/25/18 11:00 97.7 48 16 136/58 (84) 96 Room Air 97.7 03/25/18 04:50 2.0 Physical Exam General: Alert, Oriented X3, Cooperative, No acute distress Heart: Regular rate, Normal S1, Normal S2 Lungs: Clear, Crackles Abdomen: Normal bowel sounds, Soft, No tenderness, No hepatosplenomegaly, No masses Extremities: No clubbing, No cyanosis, No edema, Normal pulses, No tenderness/ swelling Skin: No rashes, No breakdown, No significant lesion Labs LABS Laboratory Tests Test 03/25/18 04:40 White Blood Count 2.9 x10^3/uL (4.0-11.0) Red Blood Count 5.48 x10^6/uL (4.30-5.70) Hemoglobin 11.3 g/dL (13.0-17.5) Hematocrit 35.3 % (39.0-53.0) Mean Corpuscular Volume 64 fL (79-100) Mean Corpuscular Hemoglobin 21 pg (25-35) Mean Corpuscular Hemoglobin Concent 32 g/dL (31-37) Red Cell Distribution Width 19.9 % (11.5-14.5) Platelet Count 150 x10^3/uL (140-400) Neutrophils (%) (Auto) 50 % (31-73) Lymphocytes (%) (Auto) 31 % (24-48) Monocytes (%) (Auto) 12 % (0-9) Eosinophils (%) (Auto) 6 % (0-3) Basophils (%) (Auto) 1 % (0-3) Neutrophils # (Auto) 1.4 x10^3uL (1.8-7.7) Lymphocytes # (Auto) 0.9 x10^3/uL (1.0-4.8) Monocytes # (Auto) 0.3 x10^3/uL (0.0-1.1) Eosinophils # (Auto) 0.2 x10^3/uL (0.0-0.7) Basophils # (Auto) 0.0 x10^3/uL (0.0-0.2) Sodium Level 141 mmol/L (136-145) Potassium Level 3.7 mmol/L (3.5-5.1) Chloride Level 106 mmol/L (98-107) Carbon Dioxide Level 31 mmol/L (21-32) Anion Gap 4 (6-14) Blood Urea Nitrogen 10 mg/dL (8-26) Creatinine 0.7 mg/dL (0.7-1.3) Estimated GFR (Cockcroft-Gault) 115.0 Glucose Level 78 mg/dL (70-99) Calcium Level 8.7 mg/dL (8.5-10.1) Assessment and Plan Assessmemt and Plan Problems Medical Problems: (1) Intractable pain Status: Acute Comment Review of Relevant I have reviewed the following items josé miguel (where applicable) has been applied. Labs Laboratory Tests Test 03/24/18 07:05 03/25/18 04:40 White Blood Count 3.6 x10^3/uL (4.0-11.0) 2.9 x10^3/uL (4.0-11.0) Red Blood Count 5.25 x10^6/uL (4.30-5.70) 5.48 x10^6/uL (4.30-5.70) Hemoglobin 10.5 g/dL (13.0-17.5) 11.3 g/dL (13.0-17.5) Hematocrit 34.1 % (39.0-53.0) 35.3 % (39.0-53.0) Mean Corpuscular Volume 65 fL (79-100) 64 fL (79-100) Mean Corpuscular Hemoglobin 20 pg (25-35) 21 pg (25-35) Mean Corpuscular Hemoglobin Concent 31 g/dL (31-37) 32 g/dL (31-37) Red Cell Distribution Width 19.6 % (11.5-14.5) 19.9 % (11.5-14.5) Platelet Count 141 x10^3/uL (140-400) 150 x10^3/uL (140-400) Neutrophils (%) (Auto) 50 % (31-73) 50 % (31-73) Lymphocytes (%) (Auto) 33 % (24-48) 31 % (24-48) Monocytes (%) (Auto) 11 % (0-9) 12 % (0-9) Eosinophils (%) (Auto) 5 % (0-3) 6 % (0-3) Basophils (%) (Auto) 1 % (0-3) 1 % (0-3) Neutrophils # (Auto) 1.8 x10^3uL (1.8-7.7) 1.4 x10^3uL (1.8-7.7) Lymphocytes # (Auto) 1.2 x10^3/uL (1.0-4.8) 0.9 x10^3/uL (1.0-4.8) Monocytes # (Auto) 0.4 x10^3/uL (0.0-1.1) 0.3 x10^3/uL (0.0-1.1) Eosinophils # (Auto) 0.2 x10^3/uL (0.0-0.7) 0.2 x10^3/uL (0.0-0.7) Basophils # (Auto) 0.0 x10^3/uL (0.0-0.2) 0.0 x10^3/uL (0.0-0.2) Sodium Level 139 mmol/L (136-145) 141 mmol/L (136-145) Potassium Level 3.9 mmol/L (3.5-5.1) 3.7 mmol/L (3.5-5.1) Chloride Level 103 mmol/L (98-107) 106 mmol/L (98-107) Carbon Dioxide Level 29 mmol/L (21-32) 31 mmol/L (21-32) Anion Gap 7 (6-14) 4 (6-14) Blood Urea Nitrogen 12 mg/dL (8-26) 10 mg/dL (8-26) Creatinine 0.8 mg/dL (0.7-1.3) 0.7 mg/dL (0.7-1.3) Estimated GFR (Cockcroft-Gault) 98.6 115.0 Glucose Level 82 mg/dL (70-99) 78 mg/dL (70-99) Calcium Level 8.7 mg/dL (8.5-10.1) 8.7 mg/dL (8.5-10.1) Laboratory Tests Test 03/25/18 04:40 White Blood Count 2.9 x10^3/uL (4.0-11.0) Red Blood Count 5.48 x10^6/uL (4.30-5.70) Hemoglobin 11.3 g/dL (13.0-17.5) Hematocrit 35.3 % (39.0-53.0) Mean Corpuscular Volume 64 fL (79-100) Mean Corpuscular Hemoglobin 21 pg (25-35) Mean Corpuscular Hemoglobin Concent 32 g/dL (31-37) Red Cell Distribution Width 19.9 % (11.5-14.5) Platelet Count 150 x10^3/uL (140-400) Neutrophils (%) (Auto) 50 % (31-73) Lymphocytes (%) (Auto) 31 % (24-48) Monocytes (%) (Auto) 12 % (0-9) Eosinophils (%) (Auto) 6 % (0-3) Basophils (%) (Auto) 1 % (0-3) Neutrophils # (Auto) 1.4 x10^3uL (1.8-7.7) Lymphocytes # (Auto) 0.9 x10^3/uL (1.0-4.8) Monocytes # (Auto) 0.3 x10^3/uL (0.0-1.1) Eosinophils # (Auto) 0.2 x10^3/uL (0.0-0.7) Basophils # (Auto) 0.0 x10^3/uL (0.0-0.2) Sodium Level 141 mmol/L (136-145) Potassium Level 3.7 mmol/L (3.5-5.1) Chloride Level 106 mmol/L (98-107) Carbon Dioxide Level 31 mmol/L (21-32) Anion Gap 4 (6-14) Blood Urea Nitrogen 10 mg/dL (8-26) Creatinine 0.7 mg/dL (0.7-1.3) Estimated GFR (Cockcroft-Gault) 115.0 Glucose Level 78 mg/dL (70-99) Calcium Level 8.7 mg/dL (8.5-10.1) Medications Current Medications Fentanyl Citrate (Fentanyl 2ml Vial) 75 mcg 1X ONCE IV Last administered on at 21:10; Start 03/19/18 at 21:00; Stop 03/19/18 at 21:01; Status DC Ondansetron HCl (Zofran) 4 mg 1X ONCE IV Last administered on 03/19/18at 21:09 ; Start 03/19/18 at 21:00; Stop 03/19/18 at 21:01; Status DC Ondansetron HCl (Zofran) 4 mg PRN Q8HRS PRN IV NAUSEA/VOMITING; Start 03/19/18 at 22:15; Stop 03/20/18 at 08:28; Status DC Morphine Sulfate (Morphine Sulfate) 4 mg PRN Q2HR PRN IV PAIN MODERATE Last administered on 03/20/18at 05:43; Start 03/19/18 at 22:15; Stop 03/20/18 at 22:14 ; Status DC Fentanyl Citrate (Fentanyl 2ml Vial) 50 mcg PRN Q2HR PRN IV PAIN SEVERE Last administered on 03/20/18at 14:01; Start 03/19/18 at 22:15; Stop 03/20/18 at 22:14 ; Status DC Sodium Chloride 1,000 ml @ 125 mls/hr Q8H IV Last administered on 03/20/18at 16 :51; Start 03/19/18 at 22:15; Stop 03/20/18 at 22:14; Status DC Acetaminophen (Tylenol) 650 mg PRN Q4HRS PRN PO FEVER; Start 03/19/18 at 22:15 ; Stop 03/20/18 at 08:30; Status DC Albuterol/ Ipratropium (Duoneb) 3 ml RTQID NEB Last administered on 03/21/18at 07:19; Start 03/20/18 at 08:00; Stop 03/21/18 at 07:59; Status DC Ondansetron HCl (Zofran) 4 mg PRN Q6HRS PRN IV NAUSEA/VOMITING; Start 03/20/18 at 08:30 Acetaminophen (Tylenol) 650 mg PRN Q6HRS PRN PO MILD PAIN / TEMP; Start at 08:30 Atorvastatin Calcium (Lipitor) 10 mg QHS PO Last administered on 03/24/18 21: 24; Start 03/20/18 at 21:00 Baclofen (Lioresal) 5 mg TID PO Last administered on 03/25/18 09:44; Start at 09:00 Vitamin D (Vitamin D3) 1,000 unit DAILY PO Last administered on 03/25/18 09:43 ; Start 03/20/18 at 09:00 Duloxetine HCl (Cymbalta) 30 mg DAILY PO Last administered on 03/25/18 09:43; Start 03/20/18 at 09:00 Fentanyl (Duragesic 25mcg/ Hr Patch) 1 patch Q72H TD Last administered on 09:36; Start 03/20/18 at 09:00 Ferrous Sulfate (Feosol) 325 mg DAILY PO Last administered on 03/25/18 09:44; Start 03/20/18 at 09:00 Fludrocortisone Acetate (Florinef) 0.1 mg DAILY PO Last administered on 09:42; Start 03/20/18 at 09:00 Lorazepam (Ativan) 1 mg PRN Q4HRS PRN PO ANXIETY / AGITATION; Start 03/20/18 at 08:30 Nitroglycerin (Nitrostat) 0.4 mg PRN Q5MIN PRN SL CHEST PAIN; Start 03/20/18 at 08:30 Ondansetron HCl (Zofran Odt) 4 mg PRN Q6HRS PRN PO NAUSEA/VOMITING; Start 03/20 at 08:30 Oxycodone/ Acetaminophen (Percocet 5/325) 1 tab BID PO Last administered on 21:24; Start 03/20/18 at 09:00; Stop 03/24/18 at 23:25; Status DC Oxycodone/ Acetaminophen (Percocet 5/325) 1 tab PRN DAILY PRN PO MODERATE PAIN Last administered on 03/24/18 03:48; Start 03/20/18 at 08:30; Stop 03/24/18 at 23:25; Status DC Pantoprazole Sodium (Protonix) 40 mg DAILYAC PO Last administered on 03/25/18 06:18; Start 03/20/18 at 09:00 Pregabalin (Lyrica) 75 mg BID PO Last administered on 03/25/18 09:44; Start at 09:00 Dicyclomine HCl (Bentyl) 20 mg TID PO Last administered on 03/25/18 10:24; Start 03/20/18 at 09:00 Fluoxetine HCl (PROzac) 80 mg DAILY PO Last administered on 03/25/18 09:43; Start 03/20/18 at 09:00 Fluphenazine HCl (Prolixin) 2.5 mg BID PO Last administered on 03/25/18 09:44 ; Start 03/20/18 at 09:00 Levothyroxine Sodium (Synthroid) 25 mcg DAILY06 PO Last administered on 06:18; Start 03/20/18 at 09:00 Multi-Ingred Cream/Lotion/Oil/ Oint (Hydrocerin Cream) 1 ector BID TP ; Start at 09:00; Stop 03/24/18 at 23:06; Status DC Morphine Sulfate (Roxanol Conc) 10 mg PRN Q1HR PRN SL SEVERE PAIN; Start at 08:45 Polyethylene Glycol (miraLAX PACKET) 17 gm DAILY PO Last administered on 09:42; Start 03/20/18 at 09:00 Thiamine Mononitrate (Vitamin B-1) 100 mg DAILY PO Last administered on 09:44; Start 03/20/18 at 09:00 Trazodone HCl (Desyrel) 150 mg QHS PO Last administered on 03/24/18 21:24; Start 03/20/18 at 21:00 Nystatin (Nystatin Oral Susp) 5 ml [id number] Last administered on 03/25/18 09:42; Start 03/20/18 at 13:00 Multi-Ingredient Mouthwash/Gargle (Gi Cocktail) 20 ml PRN QID PRN PO odynophagia Last administered on 03/25/18at 10:24; Start 03/20/18 at 12:30 Fluconazole (Diflucan) 100 mg DAILY PO Last administered on 03/25/18at 09:44; Start 03/21/18 at 11:30 Multi-Ingred Cream/Lotion/Oil/ Oint (Hydrocerin Cream) 1 ector PRN BID PRN TP DRY SKIN / SCALING; Start 03/25/18 at 00:00; Stop 03/30/18 at 00:00; Status Cancel Oxycodone/ Acetaminophen (Percocet 5/325) 2 tab PRN DAILY PRN PO MODERATE PAIN Last administered on 03/25/18at 03:50; Start 03/24/18 at 23:30 Oxycodone/ Acetaminophen (Percocet 5/325) 2 tab BID PO Last administered on at 09:43; Start 03/25/18 at 09:00; Stop 03/30/18 at 08:59 Oxymetazoline HCl (Afrin) 2 spray PRN BID PRN NS CONGESTION; Start 03/24/18 at 23:30 Multi-Ingred Cream/Lotion/Oil/ Oint (Hydrocerin Cream) 1 ector PRN BID PRN TP DRY SKIN / SCALING; Start 03/25/18 at 03:00 Active Scripts Active Reported Tylenol (Acetaminophen) 325 Mg Tablet 650 Mg PO Q6HRS PRN Miralax (Polyethylene Glycol 3350) 17 Gm Powd.pack 1 Packet PO DAILY Lipitor (Atorvastatin Calcium) 10 Mg Tablet 1 Tab PO QHS Cymbalta (Duloxetine Hcl) 30 Mg Capsule.dr 1 Cap PO DAILY Ativan (Lorazepam) 0.5 Mg Tablet 1 Mg PO Q4HRS PRN Percocet 5-325 Mg Tablet (Oxycodone/Acetaminophen) 1 Each Tablet 1 Tab PO BID FENTANYL 25mcg/hr (Fentanyl) 1 Each Patch.td72 1 Patch TD Q72H Aquaphor Ointment (Mineral Oil/Hydrophil Petrolat) 396 Gm Oint...g. 396 Gm TP BID Zofran Odt (Ondansetron) 4 Mg Tab.rapdis 1 Tab SL Q6HRS PRN Morphine Sulfate 20 Mg/5 Ml Solution 20 Mg PO 0.5CC HOURLY Percocet 5-325 Mg Tablet (Oxycodone/Acetaminophen) 1 Each Tablet 1 Tab PO DAILY PRN NITROGLYCERIN SubLingual (Nitroglycerin) 0.4 Mg Tab.subl 0.4 Mg SL PRN Q5MIN PRN Fluphenazine Hcl 5 Mg Tablet 2.5 Mg PO BID Dicyclomine Hcl 20 Mg Tablet 1 Tab PO TID Vitamin D3 (Cholecalciferol (Vitamin D3)) 1,000 Unit Tablet 1,000 Unit PO DAILY Vitamin B-1 (Thiamine Mononitrate) 100 Mg Tablet 100 Mg PO DAILY Trazodone Hcl 150 Mg Tablet 150 Mg PO HS Prozac (Fluoxetine Hcl) 40 Mg Capsule 80 Mg PO DAILY Lyrica (Pregabalin) 75 Mg Capsule 75 Mg PO BID Protonix (Pantoprazole Sodium) 40 Mg Tablet.dr 40 Mg PO DAILY Levothyroxine Sodium 25 Mcg Tablet 25 Mcg PO DAILYAC Ketoconazole 120 Ml Shampoo 1 Ector TP WEEKLY ON SUNDAY Fludrocortisone Acetate 0.1 Mg Tablet 0.1 Mg PO DAILY Ferrous Sulfate 325 Mg Tablet 325 Mg PO DAILY Baclofen 10 Mg Tablet 5 Mg PO TID Aspirin 81 Mg Tab.chew 81 Mg PO DAILY Vitals/I & O Vital Sign - Last 24 Hours 03/24/18 03/24/18 03/24/18 03/24/18 15:00 19:00 20:40 21:24 Temp 97.9 98.2 97.9 98.2 Pulse 46 44 Resp 16 18 18 B/P (MAP) 130/61 (84) 159/74 (102) Pulse Ox 95 92 92 O2 Delivery Room Air Room Air Room Air Room Air 03/24/18 03/24/18 03/25/18 03/25/18 22:25 23:00 03:00 03:50 Temp 97.5 98.2 97.5 98.2 Pulse 48 50 Resp 18 18 B/P (MAP) 130/68 (88) 192/81 (118) Pulse Ox 92 94 91 94 O2 Delivery Room Air Room Air Room Air Room Air O2 Flow Rate 2.0 03/25/18 03/25/18 03/25/18 03/25/18 04:50 07:00 08:10 09:43 Temp 96.6 96.6 Pulse 44 Resp 16 16 B/P (MAP) 159/68 (98) Pulse Ox 94 94 94 O2 Delivery Room Air Room Air Room Air Room Air O2 Flow Rate 2.0 03/25/18 03/25/18 10:52 11:00 Temp 97.7 97.7 Pulse 48 Resp 17 16 B/P (MAP) 136/58 (84) Pulse Ox 94 96 O2 Delivery Room Air Room Air Intake and Output 03/24/18 03/24/18 03/25/18 15:01 23:01 07:01 Intake Total 120 ml 120 ml Balance 120 ml 120 ml KEATON PERSAUD MD Mar 25, 2018 11:48
[2018-03-25 12:09] LABS: ALBUMIN 3.1 g/dL (3.4-5.0); DIRECT BILIRUBIN 0.1 mg/dL (0.0-0.2); TOTAL BILIRUBIN 0.4 mg/dL (0.2-1.0); TOTAL PROTEIN 6.8 g/dL (6.4-8.2)
[2018-03-25] MEDS: POTASSIUM CL 20MEQ D5-0.45NACL 1,000 ML IV SCH ×2 (13:52→20:35)
[2018-03-25 15:00] VITALS: BP 157/76
--- NOTE | 2018-03-25 15:03 | PDOC ---
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 Underwent comprehensive radiation alone to a final dose to LN of 72.6 Gy and 69 Gy tonsillar bed here 03/01/2018. Admitted with abdominal and throat pain. No F,C, N or V.Throat pain is stable and occurs with swallowing anything. All foods hard to get down. Everything tastes like cardboard. Abd pain in LLQ. He has agreed to EGD tomorrow. On Nystatin PE Elderly, right rodgers loss. palpable right cervical LN < 1 x 1 cm. Oral cavity appears to be clear. Abd Tender LLQ abd pain Focal , mild no rebound, Impression : Stage III(T3 N1 M)) squamous cell carcinoma right tonsil s/p treatment one month ago. Good response to treatment thus far. Sore throat could be due to treatment but if due to treatment should be partially resolved by now. Awaid EGD tomorrow afternoon. MILLER KEMP MD Mar 25, 2018 15:03
[2018-03-25] MEDS: MORPHINE SULFATE 4 MG/ML VIAL. IV PRN ×3 (15:14→20:48)
[2018-03-25 19:00] VITALS: BP 115/55
[2018-03-25] MEDS: ATORVASTATIN CALCIUM 10 MG TABLET. PO SCH (20:31)
[2018-03-25] MEDS: traZODone 50 MG TABLET. PO SCH (20:32)
[2018-03-25 22:41] VITALS: BP 141/57
[2018-03-26 02:45] VITALS: BP 134/69
[2018-03-26] MEDS: MORPHINE SULFATE 4 MG/ML VIAL. IV PRN ×4 (05:12→21:52)
[2018-03-26] MEDS: PANTOPRAZOLE 40 MG TABLET.DR. PO SCH ×2 (05:13→20:36)
[2018-03-26] MEDS: LEVOTHYROXINE 25 MCG TABLET. PO SCH ×2 (05:13→20:36)
[2018-03-26 05:51] LABS: BASO % 1 % (0-3); EOS # 0.2 x10^3/uL (0.0-0.7); EOS % 7 % (0-3); HEMATOCRIT 33.3 % (39.0-53.0); HEMOGLOBIN 10.4 g/dL (13.0-17.5); LYMPH # 0.8 x10^3/uL (1.0-4.8); LYMPH % 29 % (24-48); MEAN CORPUSCULAR HEMOGLOBIN 20 pg (25-35); MEAN CORPUSCULAR HGB CONC 31 g/dL (31-37); MEAN CORPUSCULAR VOLUME 65 fL (79-100); MONO # 0.3 x10^3/uL (0.0-1.1); MONO % 12 % (0-9); NEUT # 1.4 x10^3uL (1.8-7.7); NEUT % 52 % (31-73); PLATELET COUNT 138 x10^3/uL (140-400); RED BLOOD COUNT 5.14 x10^6/uL (4.30-5.70); WHITE BLOOD COUNT 2.6 x10^3/uL (4.0-11.0)
[2018-03-26 06:07] LABS: CALCIUM 8.7 mg/dL (8.5-10.1); CREATININE 0.7 mg/dL (0.7-1.3)
[2018-03-26 07:00] VITALS: BP 121/64
[2018-03-26] MEDS ORDERED: PROCHLORPERAZINE 10 MG/2 ML VIAL. IV PRN (07:00)
[2018-03-26] MEDS ORDERED: LIDOCAINE 1% PF 2 ML VIAL. ID PRN (07:00)
[2018-03-26] MEDS ORDERED: HYDROmorphone 2 MG/ML VIAL IV PRN (07:00)
[2018-03-26] MEDS ORDERED: ONDANSETRON PF 4 MG/2 ML VIAL. IV PRN (07:00)
[2018-03-26] MEDS ORDERED: MORPHINE SULFATE 2 MG/ML VIAL. IV PRN (07:00)
[2018-03-26] MEDS ORDERED: IV RINGERS,LACTATED 1000ML 1,000 ML IV SCH (07:00)
[2018-03-26] MEDS ORDERED: fentaNYL PF VIAL 100 MCG/2 ML VIAL IV PRN ×2 (07:00)
[2018-03-26] MEDS: FLUPHENAZINE HCL 2.5 MG TABLET. PO SCH ×2 (08:02→20:32)
[2018-03-26] MEDS: THIAMINE 100 MG TABLET. PO SCH (08:02)
[2018-03-26] MEDS: FERROUS SULFATE 325 MG TABLET. PO SCH (08:02)
[2018-03-26] MEDS: NYSTATIN 100,000 UNITS/ML 5 ML ORAL.SUSP. SWSW SCH ×4 (08:02→20:31)
[2018-03-26] MEDS: FLUDROCORTISONE 0.1 MG TABLET PO SCH (08:03)
[2018-03-26] MEDS: BACLOFEN 10 MG TABLET. PO SCH ×3 (08:03→20:32)
[2018-03-26] MEDS: PREGABALIN 75 MG CAPSULE PO SCH ×2 (08:03→20:32)
[2018-03-26] MEDS: DICYCLOMINE HCL 10 MG CAPSULE PO SCH ×3 (08:03→20:33)
[2018-03-26] MEDS: DULoxetine HCL 30 MG CAPSULE.DR PO SCH (08:03)
[2018-03-26] MEDS: FLUoxetine HCL 20 MG CAPSULE PO SCH (08:03)
[2018-03-26] MEDS: CHOLECALCIFEROL (VITAMIN D3) 1,000 UNIT TABLET PO SCH (08:03)
[2018-03-26] MEDS: fentaNYL 25MCG/HR PATCH 1 PATCH PATCH.TD72 TD SCH (08:04)
[2018-03-26] MEDS: oxyCODONE/APAP 5/325 1 TAB TABLET PO SCH ×2 (08:04→20:32)
[2018-03-26] MEDS: FLUCONAZOLE 100 MG TABLET. PO SCH (08:04)
[2018-03-26] MEDS: POLYETHYLENE GLYCOL 3350 17 GM PACKET. PO SCH (08:09)
[2018-03-26] MEDS: POTASSIUM CL 20MEQ D5-0.45NACL 1,000 ML IV SCH ×2 (08:30→16:15)
[2018-03-26 11:00] VITALS: BP 109/59
[2018-03-26 11:46] LABS: ANISOCYTOSIS SLIGHT; PLT ESTIMATE DECREASED (ADEQUATE)
[2018-03-26] MEDS ORDERED: PROPOFOL 20 ML IV ONE (14:38)
--- NOTE | 2018-03-26 14:56 | PDOC4 ---
Operative Note Operative Note EGD with biopsies Meds propofol per anesthesia Pre-op dx odynophagia/hx radiation post-op dx reflux esophagitis s/po bx non-erosive gastritis Plan advance diet esophagram to further assess DEBO KOEHLER MD Mar 26, 2018 14:56
--- NOTE | 2018-03-26 15:42 | PDOC ---
PROGRESS NOTES Chief Complaint Chief Complaint Tonsillar CA Stage 3 intractable pain, throat pain, poor PO intake odynophagia, dysphagia, difftls include infectious in etiology versus radiation esophagitis Throat/chest pain in a cancer pt did course of radiation Anemia of cancer Cachexia, moderate to severe PCM Hypertension, controlled History of Present Illness History of Present Illness throat pain, "a little better, trying to eat some more today, cont pain control weakness, pain meds not helping much, severe pain when swallowing lethargic, weak Gi following discussed with Brandy, not likely radiation Vitals Vitals Vital Signs Date Time Temp Pulse Resp B/P (MAP) Pulse Ox O2 Delivery O2 Flow Rate FiO2 03/26/18 15:14 46 20 125/64 95 Room Air 03/26/18 15:03 2 03/26/18 14:51 97.3 97.3 Physical Exam General: Alert, Oriented X3, Cooperative, No acute distress Heart: Regular rate, Normal S1, Normal S2 Lungs: Clear, Crackles Abdomen: Normal bowel sounds, Soft, No tenderness, No hepatosplenomegaly, No masses Extremities: No clubbing, No cyanosis, No edema, Normal pulses, No tenderness/ swelling Skin: No rashes, No breakdown, No significant lesion Labs LABS Laboratory Tests Test 03/26/18 05:00 White Blood Count 2.6 x10^3/uL (4.0-11.0) Red Blood Count 5.14 x10^6/uL (4.30-5.70) Hemoglobin 10.4 g/dL (13.0-17.5) Hematocrit 33.3 % (39.0-53.0) Mean Corpuscular Volume 65 fL (79-100) Mean Corpuscular Hemoglobin 20 pg (25-35) Mean Corpuscular Hemoglobin Concent 31 g/dL (31-37) Red Cell Distribution Width 20.0 % (11.5-14.5) Platelet Count 138 x10^3/uL (140-400) Neutrophils (%) (Auto) 52 % (31-73) Lymphocytes (%) (Auto) 29 % (24-48) Monocytes (%) (Auto) 12 % (0-9) Eosinophils (%) (Auto) 7 % (0-3) Basophils (%) (Auto) 1 % (0-3) Neutrophils # (Auto) 1.4 x10^3uL (1.8-7.7) Lymphocytes # (Auto) 0.8 x10^3/uL (1.0-4.8) Monocytes # (Auto) 0.3 x10^3/uL (0.0-1.1) Eosinophils # (Auto) 0.2 x10^3/uL (0.0-0.7) Basophils # (Auto) 0.0 x10^3/uL (0.0-0.2) Platelet Estimate Decreased (ADEQUATE) Basophilic Stippling Present Anisocytosis Slight Sodium Level 141 mmol/L (136-145) Potassium Level 4.0 mmol/L (3.5-5.1) Chloride Level 105 mmol/L (98-107) Carbon Dioxide Level 30 mmol/L (21-32) Anion Gap 6 (6-14) Blood Urea Nitrogen 11 mg/dL (8-26) Creatinine 0.7 mg/dL (0.7-1.3) Estimated GFR (Cockcroft-Gault) 115.0 Glucose Level 107 mg/dL (70-99) Calcium Level 8.7 mg/dL (8.5-10.1) Assessment and Plan Assessmemt and Plan Problems Medical Problems: (1) Intractable pain Status: Acute Comment Review of Relevant I have reviewed the following items josé miguel (where applicable) has been applied. Labs Laboratory Tests Test 03/25/18 04:40 03/26/18 05:00 White Blood Count 2.9 x10^3/uL (4.0-11.0) 2.6 x10^3/uL (4.0-11.0) Red Blood Count 5.48 x10^6/uL (4.30-5.70) 5.14 x10^6/uL (4.30-5.70) Hemoglobin 11.3 g/dL (13.0-17.5) 10.4 g/dL (13.0-17.5) Hematocrit 35.3 % (39.0-53.0) 33.3 % (39.0-53.0) Mean Corpuscular Volume 64 fL (79-100) 65 fL (79-100) Mean Corpuscular Hemoglobin 21 pg (25-35) 20 pg (25-35) Mean Corpuscular Hemoglobin Concent 32 g/dL (31-37) 31 g/dL (31-37) Red Cell Distribution Width 19.9 % (11.5-14.5) 20.0 % (11.5-14.5) Platelet Count 150 x10^3/uL (140-400) 138 x10^3/uL (140-400) Neutrophils (%) (Auto) 50 % (31-73) 52 % (31-73) Lymphocytes (%) (Auto) 31 % (24-48) 29 % (24-48) Monocytes (%) (Auto) 12 % (0-9) 12 % (0-9) Eosinophils (%) (Auto) 6 % (0-3) 7 % (0-3) Basophils (%) (Auto) 1 % (0-3) 1 % (0-3) Neutrophils # (Auto) 1.4 x10^3uL (1.8-7.7) 1.4 x10^3uL (1.8-7.7) Lymphocytes # (Auto) 0.9 x10^3/uL (1.0-4.8) 0.8 x10^3/uL (1.0-4.8) Monocytes # (Auto) 0.3 x10^3/uL (0.0-1.1) 0.3 x10^3/uL (0.0-1.1) Eosinophils # (Auto) 0.2 x10^3/uL (0.0-0.7) 0.2 x10^3/uL (0.0-0.7) Basophils # (Auto) 0.0 x10^3/uL (0.0-0.2) 0.0 x10^3/uL (0.0-0.2) Sodium Level 141 mmol/L (136-145) 141 mmol/L (136-145) Potassium Level 3.7 mmol/L (3.5-5.1) 4.0 mmol/L (3.5-5.1) Chloride Level 106 mmol/L (98-107) 105 mmol/L (98-107) Carbon Dioxide Level 31 mmol/L (21-32) 30 mmol/L (21-32) Anion Gap 4 (6-14) 6 (6-14) Blood Urea Nitrogen 10 mg/dL (8-26) 11 mg/dL (8-26) Creatinine 0.7 mg/dL (0.7-1.3) 0.7 mg/dL (0.7-1.3) Estimated GFR (Cockcroft-Gault) 115.0 115.0 Glucose Level 78 mg/dL (70-99) 107 mg/dL (70-99) Calcium Level 8.7 mg/dL (8.5-10.1) 8.7 mg/dL (8.5-10.1) Total Bilirubin 0.4 mg/dL (0.2-1.0) Direct Bilirubin 0.1 mg/dL (0.0-0.2) Aspartate Amino Transf (AST/SGOT) 15 U/L (15-37) Alanine Aminotransferase (ALT/SGPT) 21 U/L (16-63) Alkaline Phosphatase 73 U/L (46-116) Total Protein 6.8 g/dL (6.4-8.2) Albumin 3.1 g/dL (3.4-5.0) Platelet Estimate Decreased (ADEQUATE) Basophilic Stippling Present Anisocytosis Slight Laboratory Tests Test 03/26/18 05:00 White Blood Count 2.6 x10^3/uL (4.0-11.0) Red Blood Count 5.14 x10^6/uL (4.30-5.70) Hemoglobin 10.4 g/dL (13.0-17.5) Hematocrit 33.3 % (39.0-53.0) Mean Corpuscular Volume 65 fL (79-100) Mean Corpuscular Hemoglobin 20 pg (25-35) Mean Corpuscular Hemoglobin Concent 31 g/dL (31-37) Red Cell Distribution Width 20.0 % (11.5-14.5) Platelet Count 138 x10^3/uL (140-400) Neutrophils (%) (Auto) 52 % (31-73) Lymphocytes (%) (Auto) 29 % (24-48) Monocytes (%) (Auto) 12 % (0-9) Eosinophils (%) (Auto) 7 % (0-3) Basophils (%) (Auto) 1 % (0-3) Neutrophils # (Auto) 1.4 x10^3uL (1.8-7.7) Lymphocytes # (Auto) 0.8 x10^3/uL (1.0-4.8) Monocytes # (Auto) 0.3 x10^3/uL (0.0-1.1) Eosinophils # (Auto) 0.2 x10^3/uL (0.0-0.7) Basophils # (Auto) 0.0 x10^3/uL (0.0-0.2) Platelet Estimate Decreased (ADEQUATE) Basophilic Stippling Present Anisocytosis Slight Sodium Level 141 mmol/L (136-145) Potassium Level 4.0 mmol/L (3.5-5.1) Chloride Level 105 mmol/L (98-107) Carbon Dioxide Level 30 mmol/L (21-32) Anion Gap 6 (6-14) Blood Urea Nitrogen 11 mg/dL (8-26) Creatinine 0.7 mg/dL (0.7-1.3) Estimated GFR (Cockcroft-Gault) 115.0 Glucose Level 107 mg/dL (70-99) Calcium Level 8.7 mg/dL (8.5-10.1) Medications Current Medications Fentanyl Citrate (Fentanyl 2ml Vial) 75 mcg 1X ONCE IV Last administered on at 21:10; Start 03/19/18 at 21:00; Stop 03/19/18 at 21:01; Status DC Ondansetron HCl (Zofran) 4 mg 1X ONCE IV Last administered on 03/19/18at 21:09 ; Start 03/19/18 at 21:00; Stop 03/19/18 at 21:01; Status DC Ondansetron HCl (Zofran) 4 mg PRN Q8HRS PRN IV NAUSEA/VOMITING; Start 03/19/18 at 22:15; Stop 03/20/18 at 08:28; Status DC Morphine Sulfate (Morphine Sulfate) 4 mg PRN Q2HR PRN IV PAIN MODERATE Last administered on 03/20/18at 05:43; Start 03/19/18 at 22:15; Stop 03/20/18 at 22:14 ; Status DC Fentanyl Citrate (Fentanyl 2ml Vial) 50 mcg PRN Q2HR PRN IV PAIN SEVERE Last administered on 03/20/18at 14:01; Start 03/19/18 at 22:15; Stop 03/20/18 at 22:14 ; Status DC Sodium Chloride 1,000 ml @ 125 mls/hr Q8H IV Last administered on 03/20/18at 16 :51; Start 03/19/18 at 22:15; Stop 03/20/18 at 22:14; Status DC Acetaminophen (Tylenol) 650 mg PRN Q4HRS PRN PO FEVER; Start 03/19/18 at 22:15 ; Stop 03/20/18 at 08:30; Status DC Albuterol/ Ipratropium (Duoneb) 3 ml RTQID NEB Last administered on 03/21/18at 07:19; Start 03/20/18 at 08:00; Stop 03/21/18 at 07:59; Status DC Ondansetron HCl (Zofran) 4 mg PRN Q6HRS PRN IV NAUSEA/VOMITING; Start 03/20/18 at 08:30 Acetaminophen (Tylenol) 650 mg PRN Q6HRS PRN PO MILD PAIN / TEMP; Start at 08:30 Atorvastatin Calcium (Lipitor) 10 mg QHS PO Last administered on 03/25/18at 20: 31; Start 03/20/18 at 21:00 Baclofen (Lioresal) 5 mg TID PO Last administered on 03/26/18 08:03; Start at 09:00 Vitamin D (Vitamin D3) 1,000 unit DAILY PO Last administered on 03/26/18 08:03 ; Start 03/20/18 at 09:00 Duloxetine HCl (Cymbalta) 30 mg DAILY PO Last administered on 03/26/18at 08:03; Start 03/20/18 at 09:00 Fentanyl (Duragesic 25mcg/ Hr Patch) 1 patch Q72H TD Last administered on at 08:04; Start 03/20/18 at 09:00 Ferrous Sulfate (Feosol) 325 mg DAILY PO Last administered on 03/26/18 08:02; Start 03/20/18 at 09:00 Fludrocortisone Acetate (Florinef) 0.1 mg DAILY PO Last administered on at 08:03; Start 03/20/18 at 09:00 Lorazepam (Ativan) 1 mg PRN Q4HRS PRN PO ANXIETY / AGITATION; Start 03/20/18 at 08:30 Nitroglycerin (Nitrostat) 0.4 mg PRN Q5MIN PRN SL CHEST PAIN; Start 03/20/18 at 08:30 Ondansetron HCl (Zofran Odt) 4 mg PRN Q6HRS PRN PO NAUSEA/VOMITING; Start 03/20 at 08:30 Oxycodone/ Acetaminophen (Percocet 5/325) 1 tab BID PO Last administered on at 21:24; Start 03/20/18 at 09:00; Stop 03/24/18 at 23:25; Status DC Oxycodone/ Acetaminophen (Percocet 5/325) 1 tab PRN DAILY PRN PO MODERATE PAIN Last administered on 03/24/18at 03:48; Start 03/20/18 at 08:30; Stop 03/24/18 at 23:25; Status DC Pantoprazole Sodium (Protonix) 40 mg DAILYAC PO Last administered on 03/26/18at 05:13; Start 03/20/18 at 09:00 Pregabalin (Lyrica) 75 mg BID PO Last administered on 03/26/18at 08:03; Start at 09:00 Dicyclomine HCl (Bentyl) 20 mg TID PO Last administered on 03/26/18at 08:03; Start 03/20/18 at 09:00 Fluoxetine HCl (PROzac) 80 mg DAILY PO Last administered on 03/26/18at 08:03; Start 03/20/18 at 09:00 Fluphenazine HCl (Prolixin) 2.5 mg BID PO Last administered on 03/26/18at 08:02 ; Start 03/20/18 at 09:00 Levothyroxine Sodium (Synthroid) 25 mcg DAILY06 PO Last administered on at 05:13; Start 03/20/18 at 09:00 Multi-Ingred Cream/Lotion/Oil/ Oint (Hydrocerin Cream) 1 ector BID TP ; Start at 09:00; Stop 03/24/18 at 23:06; Status DC Morphine Sulfate (Roxanol Conc) 10 mg PRN Q1HR PRN SL SEVERE PAIN; Start at 08:45 Polyethylene Glycol (miraLAX PACKET) 17 gm DAILY PO Last administered on at 09:42; Start 03/20/18 at 09:00 Thiamine Mononitrate (Vitamin B-1) 100 mg DAILY PO Last administered on 08:02; Start 03/20/18 at 09:00 Trazodone HCl (Desyrel) 150 mg QHS PO Last administered on 03/25/18at 20:32; Start 03/20/18 at 21:00 Nystatin (Nystatin Oral Susp) 5 ml [id number] Last administered on 03/26/18 08:02; Start 03/20/18 at 13:00 Multi-Ingredient Mouthwash/Gargle (Gi Cocktail) 20 ml PRN QID PRN PO odynophagia Last administered on 03/25/18 10:24; Start 03/20/18 at 12:30 Fluconazole (Diflucan) 100 mg DAILY PO Last administered on 03/26/18 08:04; Start 03/21/18 at 11:30 Multi-Ingred Cream/Lotion/Oil/ Oint (Hydrocerin Cream) 1 ector PRN BID PRN TP DRY SKIN / SCALING; Start 03/25/18 at 00:00; Stop 03/30/18 at 00:00; Status Cancel Oxycodone/ Acetaminophen (Percocet 5/325) 2 tab PRN DAILY PRN PO MODERATE PAIN Last administered on 03/25/18 03:50; Start 03/24/18 at 23:30 Oxycodone/ Acetaminophen (Percocet 5/325) 2 tab BID PO Last administered on 08:04; Start 03/25/18 at 09:00; Stop 03/30/18 at 08:59 Oxymetazoline HCl (Afrin) 2 spray PRN BID PRN NS CONGESTION Last administered on 03/25/18 13:51; Start 03/24/18 at 23:30 Multi-Ingred Cream/Lotion/Oil/ Oint (Hydrocerin Cream) 1 ector PRN BID PRN TP DRY SKIN / SCALING; Start 03/25/18 at 03:00 Throat Lozenges (Chloraseptic) 1 spray PRN Q2HR PRN PO SORE THROAT Last administered on 03/25/18 13:51; Start 03/25/18 at 11:45 Morphine Sulfate (Morphine Sulfate) 4 mg PRN Q2HR PRN IV PAIN Last administered on 03/26/18at 05:12; Start 03/25/18 at 11:45 Potassium Chloride/Dextrose/ Sod Cl 1,000 ml @ 100 mls/hr Q10H IV Last administered on 03/25/18at 20:35; Start 03/25/18 at 12:30 Prochlorperazine Edisylate (Compazine) 5 mg PACU PRN PRN IV NAUSEA, MRX1; Start 03/26/18 at 07:00; Stop 03/27/18 at 06:59 Hydromorphone HCl (Dilaudid) 0.5 mg PRN Q10MIN PRN IV SEV PAIN, Second choice; Start 03/26/18 at 07:00; Stop 03/27/18 at 06:59 Lidocaine HCl (Xylocaine-Mpf 1% 2ml Vial) 2 ml PRN 1X PRN ID IV START; Start at 07:00; Stop 03/27/18 at 06:59 Ringer's Solution 1,000 ml @ 30 mls/hr Q24H IV Last administered on 03/26/18at 14:10; Start 03/26/18 at 07:00; Stop 03/26/18 at 18:59 Morphine Sulfate (Morphine Sulfate) 1 mg PRN Q10MIN PRN IV SEVERE PAIN; Start 03/26/18 at 07:00; Stop 03/27/18 at 06:59 Fentanyl Citrate (Fentanyl 2ml Vial) 50 mcg PRN Q5MIN PRN IV MODERATE TO SEVERE PAIN; Start 03/26/18 at 07:00; Stop 03/27/18 at 06:59 Fentanyl Citrate (Fentanyl 2ml Vial) 25 mcg PRN Q5MIN PRN IV MILD PAIN; Start 03/26/18 at 07:00; Stop 03/27/18 at 06:59 Ondansetron HCl (Zofran) 4 mg PRN Q6HRS PRN IV NAUSEA/VOMITING; Start 03/26/18 at 07:00; Stop 03/27/18 at 06:59 Propofol 20 ml @ As Directed STK-MED ONCE IV ; Start 03/26/18 at 14:38; Stop at 14:39; Status DC Active Scripts Active Reported Tylenol (Acetaminophen) 325 Mg Tablet 650 Mg PO Q6HRS PRN Miralax (Polyethylene Glycol 3350) 17 Gm Powd.pack 1 Packet PO DAILY Lipitor (Atorvastatin Calcium) 10 Mg Tablet 1 Tab PO QHS Cymbalta (Duloxetine Hcl) 30 Mg Capsule.dr 1 Cap PO DAILY Ativan (Lorazepam) 0.5 Mg Tablet 1 Mg PO Q4HRS PRN Percocet 5-325 Mg Tablet (Oxycodone/Acetaminophen) 1 Each Tablet 1 Tab PO BID FENTANYL 25mcg/hr (Fentanyl) 1 Each Patch.td72 1 Patch TD Q72H Aquaphor Ointment (Mineral Oil/Hydrophil Petrolat) 396 Gm Oint...g. 396 Gm TP BID Zofran Odt (Ondansetron) 4 Mg Tab.rapdis 1 Tab SL Q6HRS PRN Morphine Sulfate 20 Mg/5 Ml Solution 20 Mg PO 0.5CC HOURLY Percocet 5-325 Mg Tablet (Oxycodone/Acetaminophen) 1 Each Tablet 1 Tab PO DAILY PRN NITROGLYCERIN SubLingual (Nitroglycerin) 0.4 Mg Tab.subl 0.4 Mg SL PRN Q5MIN PRN Fluphenazine Hcl 5 Mg Tablet 2.5 Mg PO BID Dicyclomine Hcl 20 Mg Tablet 1 Tab PO TID Vitamin D3 (Cholecalciferol (Vitamin D3)) 1,000 Unit Tablet 1,000 Unit PO DAILY Vitamin B-1 (Thiamine Mononitrate) 100 Mg Tablet 100 Mg PO DAILY Trazodone Hcl 150 Mg Tablet 150 Mg PO HS Prozac (Fluoxetine Hcl) 40 Mg Capsule 80 Mg PO DAILY Lyrica (Pregabalin) 75 Mg Capsule 75 Mg PO BID Protonix (Pantoprazole Sodium) 40 Mg Tablet.dr 40 Mg PO DAILY Levothyroxine Sodium 25 Mcg Tablet 25 Mcg PO DAILYAC Ketoconazole 120 Ml Shampoo 1 Ector TP WEEKLY ON SUNDAY Fludrocortisone Acetate 0.1 Mg Tablet 0.1 Mg PO DAILY Ferrous Sulfate 325 Mg Tablet 325 Mg PO DAILY Baclofen 10 Mg Tablet 5 Mg PO TID Aspirin 81 Mg Tab.chew 81 Mg PO DAILY Vitals/I & O Vital Sign - Last 24 Hours 03/25/18 03/25/18 03/25/18 03/25/18 17:32 18:14 19:00 20:00 Temp 96.6 96.6 Pulse 49 Resp 17 17 18 B/P (MAP) 115/55 (75) Pulse Ox 96 96 92 O2 Delivery Room Air Room Air Room Air 03/25/18 03/25/18 03/25/18 03/26/18 20:31 20:48 22:41 02:45 Temp 98.4 97.7 98.4 97.7 Pulse 44 43 Resp 18 18 B/P (MAP) 141/57 (85) 134/69 (90) Pulse Ox 95 94 O2 Delivery Room Air Room Air Room Air Room Air 03/26/18 03/26/18 03/26/18 03/26/18 05:12 05:42 07:00 08:04 Temp 97.5 97.5 Pulse 46 Resp 18 B/P (MAP) 121/64 (83) Pulse Ox 90 93 O2 Delivery Room Air Room Air Room Air Room Air 03/26/18 03/26/18 03/26/18 03/26/18 08:04 08:20 11:00 11:14 Temp 96.4 96.4 Pulse 44 B/P (MAP) 109/59 (76) Pulse Ox 93 93 O2 Delivery Room Air Room Air Room Air Room Air 03/26/18 03/26/18 03/26/18 03/26/18 12:58 14:04 14:06 14:51 Temp 98.3 97.3 98.3 97.3 Pulse 53 49 Resp 16 16 B/P (MAP) 125/63 Pulse Ox 91 96 O2 Delivery Room Air Room Air Nasal Cannula O2 Flow Rate 2.0 6 03/26/18 03/26/18 15:03 15:14 Pulse 46 46 Resp 16 20 B/P (MAP) 140/65 125/64 Pulse Ox 92 95 O2 Delivery Nasal Cannula Room Air O2 Flow Rate 2 Intake and Output 03/25/18 03/25/18 03/26/18 15:00 23:00 07:00 Output Total 500 ml Balance -500 ml KEATON PERSAUD MD Mar 26, 2018 15:42
[2018-03-26 15:45] VITALS: BP 100/67
[2018-03-26] MEDS: LIDO:MAALOX 1:1 20 ML SINGLE DOSE. PO PRN (18:48)
[2018-03-26 19:00] VITALS: BP 147/69
[2018-03-26] MEDS: ATORVASTATIN CALCIUM 10 MG TABLET. PO SCH (20:32)
[2018-03-26] MEDS: traZODone 50 MG TABLET. PO SCH (20:32)
[2018-03-26 23:00] VITALS: BP 136/63
[2018-03-27 03:00] VITALS: BP 124/72
[2018-03-27] MEDS: POTASSIUM CL 20MEQ D5-0.45NACL 1,000 ML IV SCH (04:30)
[2018-03-27] MEDS: MORPHINE SULFATE 4 MG/ML VIAL. IV PRN (06:05)
[2018-03-27 07:00] VITALS: BP 125/77
[2018-03-27] MEDS ORDERED: BARIUM SULFATE 60% 355 ML SUSP PO ONE (07:15)
[2018-03-27] MEDS ORDERED: BARIUM SULFATE 340 GM SUSPENSION. PO ONE (07:15)
[2018-03-27] MEDS ORDERED: SIMETHICONE/SOD BICARB/CITRIC ACID PACKET. PO ONE (07:15)
[2018-03-27 07:26] LABS: BASO % 1 % (0-3); EOS # 0.2 x10^3/uL (0.0-0.7); EOS % 7 % (0-3); HEMOGLOBIN 10.4 g/dL (13.0-17.5); LYMPH # 0.8 x10^3/uL (1.0-4.8); LYMPH % 25 % (24-48); MEAN CORPUSCULAR HEMOGLOBIN 21 pg (25-35); MEAN CORPUSCULAR HGB CONC 32 g/dL (31-37); MEAN CORPUSCULAR VOLUME 65 fL (79-100); MONO # 0.3 x10^3/uL (0.0-1.1); MONO % 11 % (0-9); NEUT # 1.7 x10^3uL (1.8-7.7); NEUT % 56 % (31-73); PLATELET COUNT 142 x10^3/uL (140-400); RED BLOOD COUNT 5.06 x10^6/uL (4.30-5.70); RED CELL DISTRIBUTION WIDTH 19.7 % (11.5-14.5)
[2018-03-27 07:45] LABS: CALCIUM 8.6 mg/dL (8.5-10.1); CREATININE 0.8 mg/dL (0.7-1.3); GFR 98.6
--- NOTE | 2018-03-27 10:08 | RAD ---
Esophagram, 03/27/2018: History: Dysphasia, previous throat and neck cancer with radiation The study was performed utilizing thin and thickened liquid barium. 8 static and dynamic fluoroscopic sequences were recorded. 2.1 minutes of fluoroscopy time was utilized. The patient was weak and somewhat dizzy limiting the upright examination. There is decreased pharyngeal peristalsis with considerable stasis of material in the hypopharynx and cervical esophagus. No stenosis or focal obstructing process is seen in the cervical or thoracic esophagus. No aspiration was observed. The thoracic peristalsis is unremarkable. No hiatal hernia or gastroesophageal reflux was demonstrated. IMPRESSION: 1. Decreased pharyngeal peristalsis with stasis of material in the hypopharynx and cervical esophagus. A videodysphasia evaluation may be helpful. 2. No obstructing esophageal lesion is identified.
[2018-03-27 11:00] VITALS: BP 120/60
[2018-03-27] MEDS: FLUPHENAZINE HCL 2.5 MG TABLET. PO SCH ×2 (12:24→20:47)
[2018-03-27] MEDS: THIAMINE 100 MG TABLET. PO SCH (12:24)
[2018-03-27] MEDS: DULoxetine HCL 30 MG CAPSULE.DR PO SCH (12:24)
[2018-03-27] MEDS: CHOLECALCIFEROL (VITAMIN D3) 1,000 UNIT TABLET PO SCH (12:24)
[2018-03-27] MEDS: PREGABALIN 75 MG CAPSULE PO SCH ×2 (12:24→20:46)
[2018-03-27] MEDS: FERROUS SULFATE 325 MG TABLET. PO SCH (12:24)
[2018-03-27] MEDS: FLUoxetine HCL 20 MG CAPSULE PO SCH (12:24)
[2018-03-27] MEDS: FLUCONAZOLE 100 MG TABLET. PO SCH (12:25)
[2018-03-27] MEDS: oxyCODONE/APAP 5/325 1 TAB TABLET PO SCH ×2 (12:25→20:46)
[2018-03-27] MEDS: BACLOFEN 10 MG TABLET. PO SCH ×3 (12:25→20:46)
[2018-03-27] MEDS: DICYCLOMINE HCL 10 MG CAPSULE PO SCH ×3 (12:25→20:46)
[2018-03-27] MEDS: FLUDROCORTISONE 0.1 MG TABLET PO SCH (12:26)
[2018-03-27] MEDS: POLYETHYLENE GLYCOL 3350 17 GM PACKET. PO SCH (12:26)
[2018-03-27] MEDS: NYSTATIN 100,000 UNITS/ML 5 ML ORAL.SUSP. SWSW SCH ×2 (12:26→12:53)
[2018-03-27] MEDS: AMINO AC 3%/ELECTROLYTE/GLYCER 1,000 ML IV SCH ×2 (12:26→19:25)
[2018-03-27] MEDS ORDERED: MORPHINE SULFATE 10 MG/ML VIAL. IV PRN (12:30)
--- NOTE | 2018-03-27 12:36 | PDOC ---
PROGRESS NOTES Chief Complaint Chief Complaint Tonsillar CA Stage 3 intractable pain, throat pain, poor PO intake odynophagia, dysphagia, acute esophagitis, poss GERD related, will increase the PPI Anemia of cancer Cachexia, moderate to severe PCM Hypertension, controlled malnutrition, mod/severe depression, aadjustment disorder History of Present Illness History of Present Illness throat pain, he says is not improved complains of pain he keeps removing IV site, tells the RN he doesn't need it, will change IV fluid to procalamine will consult palliative care for pain, and despair in cancer diagnosis weakness, pain meds not helping much, severe pain when swallowing lethargic, weak Gi following - biopsies taken of esophagus esophagram today Vitals Vitals Vital Signs Date Time Temp Pulse Resp B/P (MAP) Pulse Ox O2 Delivery O2 Flow Rate FiO2 03/27/18 12:25 Room Air 03/27/18 11:00 98.5 93 18 120/60 (80) 88 98.5 03/26/18 15:03 2 Physical Exam General: Alert, Oriented X3, Cooperative, No acute distress Heart: Regular rate, Normal S1, Normal S2 Lungs: Clear, Crackles Abdomen: Normal bowel sounds, Soft, No tenderness, No hepatosplenomegaly, No masses Extremities: No clubbing, No cyanosis, No edema, Normal pulses, No tenderness/ swelling Skin: No rashes, No breakdown, No significant lesion Labs LABS Laboratory Tests Test 03/27/18 06:22 White Blood Count 3.0 x10^3/uL (4.0-11.0) Red Blood Count 5.06 x10^6/uL (4.30-5.70) Hemoglobin 10.4 g/dL (13.0-17.5) Hematocrit 33.0 % (39.0-53.0) Mean Corpuscular Volume 65 fL (79-100) Mean Corpuscular Hemoglobin 21 pg (25-35) Mean Corpuscular Hemoglobin Concent 32 g/dL (31-37) Red Cell Distribution Width 19.7 % (11.5-14.5) Platelet Count 142 x10^3/uL (140-400) Neutrophils (%) (Auto) 56 % (31-73) Lymphocytes (%) (Auto) 25 % (24-48) Monocytes (%) (Auto) 11 % (0-9) Eosinophils (%) (Auto) 7 % (0-3) Basophils (%) (Auto) 1 % (0-3) Neutrophils # (Auto) 1.7 x10^3uL (1.8-7.7) Lymphocytes # (Auto) 0.8 x10^3/uL (1.0-4.8) Monocytes # (Auto) 0.3 x10^3/uL (0.0-1.1) Eosinophils # (Auto) 0.2 x10^3/uL (0.0-0.7) Basophils # (Auto) 0.0 x10^3/uL (0.0-0.2) Sodium Level 140 mmol/L (136-145) Potassium Level 4.0 mmol/L (3.5-5.1) Chloride Level 105 mmol/L (98-107) Carbon Dioxide Level 29 mmol/L (21-32) Anion Gap 6 (6-14) Blood Urea Nitrogen 6 mg/dL (8-26) Creatinine 0.8 mg/dL (0.7-1.3) Estimated GFR (Cockcroft-Gault) 98.6 Glucose Level 98 mg/dL (70-99) Calcium Level 8.6 mg/dL (8.5-10.1) Assessment and Plan Assessmemt and Plan Problems Medical Problems: (1) Intractable pain Status: Acute Comment Review of Relevant I have reviewed the following items josé miguel (where applicable) has been applied. Labs Laboratory Tests Test 03/26/18 05:00 03/27/18 06:22 White Blood Count 2.6 x10^3/uL (4.0-11.0) 3.0 x10^3/uL (4.0-11.0) Red Blood Count 5.14 x10^6/uL (4.30-5.70) 5.06 x10^6/uL (4.30-5.70) Hemoglobin 10.4 g/dL (13.0-17.5) 10.4 g/dL (13.0-17.5) Hematocrit 33.3 % (39.0-53.0) 33.0 % (39.0-53.0) Mean Corpuscular Volume 65 fL (79-100) 65 fL (79-100) Mean Corpuscular Hemoglobin 20 pg (25-35) 21 pg (25-35) Mean Corpuscular Hemoglobin Concent 31 g/dL (31-37) 32 g/dL (31-37) Red Cell Distribution Width 20.0 % (11.5-14.5) 19.7 % (11.5-14.5) Platelet Count 138 x10^3/uL (140-400) 142 x10^3/uL (140-400) Neutrophils (%) (Auto) 52 % (31-73) 56 % (31-73) Lymphocytes (%) (Auto) 29 % (24-48) 25 % (24-48) Monocytes (%) (Auto) 12 % (0-9) 11 % (0-9) Eosinophils (%) (Auto) 7 % (0-3) 7 % (0-3) Basophils (%) (Auto) 1 % (0-3) 1 % (0-3) Neutrophils # (Auto) 1.4 x10^3uL (1.8-7.7) 1.7 x10^3uL (1.8-7.7) Lymphocytes # (Auto) 0.8 x10^3/uL (1.0-4.8) 0.8 x10^3/uL (1.0-4.8) Monocytes # (Auto) 0.3 x10^3/uL (0.0-1.1) 0.3 x10^3/uL (0.0-1.1) Eosinophils # (Auto) 0.2 x10^3/uL (0.0-0.7) 0.2 x10^3/uL (0.0-0.7) Basophils # (Auto) 0.0 x10^3/uL (0.0-0.2) 0.0 x10^3/uL (0.0-0.2) Platelet Estimate Decreased (ADEQUATE) Basophilic Stippling Present Anisocytosis Slight Sodium Level 141 mmol/L (136-145) 140 mmol/L (136-145) Potassium Level 4.0 mmol/L (3.5-5.1) 4.0 mmol/L (3.5-5.1) Chloride Level 105 mmol/L (98-107) 105 mmol/L (98-107) Carbon Dioxide Level 30 mmol/L (21-32) 29 mmol/L (21-32) Anion Gap 6 (6-14) 6 (6-14) Blood Urea Nitrogen 11 mg/dL (8-26) 6 mg/dL (8-26) Creatinine 0.7 mg/dL (0.7-1.3) 0.8 mg/dL (0.7-1.3) Estimated GFR (Cockcroft-Gault) 115.0 98.6 Glucose Level 107 mg/dL (70-99) 98 mg/dL (70-99) Calcium Level 8.7 mg/dL (8.5-10.1) 8.6 mg/dL (8.5-10.1) Laboratory Tests Test 03/27/18 06:22 White Blood Count 3.0 x10^3/uL (4.0-11.0) Red Blood Count 5.06 x10^6/uL (4.30-5.70) Hemoglobin 10.4 g/dL (13.0-17.5) Hematocrit 33.0 % (39.0-53.0) Mean Corpuscular Volume 65 fL (79-100) Mean Corpuscular Hemoglobin 21 pg (25-35) Mean Corpuscular Hemoglobin Concent 32 g/dL (31-37) Red Cell Distribution Width 19.7 % (11.5-14.5) Platelet Count 142 x10^3/uL (140-400) Neutrophils (%) (Auto) 56 % (31-73) Lymphocytes (%) (Auto) 25 % (24-48) Monocytes (%) (Auto) 11 % (0-9) Eosinophils (%) (Auto) 7 % (0-3) Basophils (%) (Auto) 1 % (0-3) Neutrophils # (Auto) 1.7 x10^3uL (1.8-7.7) Lymphocytes # (Auto) 0.8 x10^3/uL (1.0-4.8) Monocytes # (Auto) 0.3 x10^3/uL (0.0-1.1) Eosinophils # (Auto) 0.2 x10^3/uL (0.0-0.7) Basophils # (Auto) 0.0 x10^3/uL (0.0-0.2) Sodium Level 140 mmol/L (136-145) Potassium Level 4.0 mmol/L (3.5-5.1) Chloride Level 105 mmol/L (98-107) Carbon Dioxide Level 29 mmol/L (21-32) Anion Gap 6 (6-14) Blood Urea Nitrogen 6 mg/dL (8-26) Creatinine 0.8 mg/dL (0.7-1.3) Estimated GFR (Cockcroft-Gault) 98.6 Glucose Level 98 mg/dL (70-99) Calcium Level 8.6 mg/dL (8.5-10.1) Medications Current Medications Fentanyl Citrate (Fentanyl 2ml Vial) 75 mcg 1X ONCE IV Last administered on at 21:10; Start 03/19/18 at 21:00; Stop 03/19/18 at 21:01; Status DC Ondansetron HCl (Zofran) 4 mg 1X ONCE IV Last administered on 03/19/18at 21:09 ; Start 03/19/18 at 21:00; Stop 03/19/18 at 21:01; Status DC Ondansetron HCl (Zofran) 4 mg PRN Q8HRS PRN IV NAUSEA/VOMITING; Start 03/19/18 at 22:15; Stop 03/20/18 at 08:28; Status DC Morphine Sulfate (Morphine Sulfate) 4 mg PRN Q2HR PRN IV PAIN MODERATE Last administered on 03/20/18at 05:43; Start 03/19/18 at 22:15; Stop 03/20/18 at 22:14 ; Status DC Fentanyl Citrate (Fentanyl 2ml Vial) 50 mcg PRN Q2HR PRN IV PAIN SEVERE Last administered on 03/20/18at 14:01; Start 03/19/18 at 22:15; Stop 03/20/18 at 22:14 ; Status DC Sodium Chloride 1,000 ml @ 125 mls/hr Q8H IV Last administered on 03/20/18at 16 :51; Start 03/19/18 at 22:15; Stop 03/20/18 at 22:14; Status DC Acetaminophen (Tylenol) 650 mg PRN Q4HRS PRN PO FEVER; Start 03/19/18 at 22:15 ; Stop 03/20/18 at 08:30; Status DC Albuterol/ Ipratropium (Duoneb) 3 ml RTQID NEB Last administered on 03/21/18at 07:19; Start 03/20/18 at 08:00; Stop 03/21/18 at 07:59; Status DC Ondansetron HCl (Zofran) 4 mg PRN Q6HRS PRN IV NAUSEA/VOMITING; Start 03/20/18 at 08:30 Acetaminophen (Tylenol) 650 mg PRN Q6HRS PRN PO MILD PAIN / TEMP; Start at 08:30 Atorvastatin Calcium (Lipitor) 10 mg QHS PO Last administered on 03/26/18at 20: 32; Start 03/20/18 at 21:00 Baclofen (Lioresal) 5 mg TID PO Last administered on 03/27/18 12:25; Start at 09:00 Vitamin D (Vitamin D3) 1,000 unit DAILY PO Last administered on 03/27/18 12:24 ; Start 03/20/18 at 09:00 Duloxetine HCl (Cymbalta) 30 mg DAILY PO Last administered on 03/27/18 12:24; Start 03/20/18 at 09:00 Fentanyl (Duragesic 25mcg/ Hr Patch) 1 patch Q72H TD Last administered on 08:04; Start 03/20/18 at 09:00 Ferrous Sulfate (Feosol) 325 mg DAILY PO Last administered on 03/27/18 12:24; Start 03/20/18 at 09:00 Fludrocortisone Acetate (Florinef) 0.1 mg DAILY PO Last administered on 12:26; Start 03/20/18 at 09:00 Lorazepam (Ativan) 1 mg PRN Q4HRS PRN PO ANXIETY / AGITATION; Start 03/20/18 at 08:30 Nitroglycerin (Nitrostat) 0.4 mg PRN Q5MIN PRN SL CHEST PAIN; Start 03/20/18 at 08:30 Ondansetron HCl (Zofran Odt) 4 mg PRN Q6HRS PRN PO NAUSEA/VOMITING; Start 03/20 at 08:30 Oxycodone/ Acetaminophen (Percocet 5/325) 1 tab BID PO Last administered on at 21:24; Start 03/20/18 at 09:00; Stop 03/24/18 at 23:25; Status DC Oxycodone/ Acetaminophen (Percocet 5/325) 1 tab PRN DAILY PRN PO MODERATE PAIN Last administered on 03/24/18 03:48; Start 03/20/18 at 08:30; Stop 03/24/18 at 23:25; Status DC Pantoprazole Sodium (Protonix) 40 mg DAILYAC PO Last administered on 03/26/18 05:13; Start 03/20/18 at 09:00; Stop 03/27/18 at 12:13; Status DC Pregabalin (Lyrica) 75 mg BID PO Last administered on 03/27/18 12:24; Start at 09:00 Dicyclomine HCl (Bentyl) 20 mg TID PO Last administered on 03/27/18 12:25; Start 03/20/18 at 09:00 Fluoxetine HCl (PROzac) 80 mg DAILY PO Last administered on 03/27/18 12:24; Start 03/20/18 at 09:00 Fluphenazine HCl (Prolixin) 2.5 mg BID PO Last administered on 03/27/18 12:24 ; Start 03/20/18 at 09:00 Levothyroxine Sodium (Synthroid) 25 mcg DAILY06 PO Last administered on 05:13; Start 03/20/18 at 09:00 Multi-Ingred Cream/Lotion/Oil/ Oint (Hydrocerin Cream) 1 ector BID TP ; Start at 09:00; Stop 03/24/18 at 23:06; Status DC Morphine Sulfate (Roxanol Conc) 10 mg PRN Q1HR PRN SL SEVERE PAIN; Start at 08:45 Polyethylene Glycol (miraLAX PACKET) 17 gm DAILY PO Last administered on 12:26; Start 03/20/18 at 09:00 Thiamine Mononitrate (Vitamin B-1) 100 mg DAILY PO Last administered on 12:24; Start 03/20/18 at 09:00 Trazodone HCl (Desyrel) 150 mg QHS PO Last administered on 03/26/18at 20:32; Start 03/20/18 at 21:00 Nystatin (Nystatin Oral Susp) 5 ml [id number] Last administered on 03/27/18 12:26; Start 03/20/18 at 13:00 Multi-Ingredient Mouthwash/Gargle (Gi Cocktail) 20 ml PRN QID PRN PO odynophagia Last administered on 03/26/18at 18:48; Start 03/20/18 at 12:30 Fluconazole (Diflucan) 100 mg DAILY PO Last administered on 03/27/18 12:25; Start 03/21/18 at 11:30 Multi-Ingred Cream/Lotion/Oil/ Oint (Hydrocerin Cream) 1 ector PRN BID PRN TP DRY SKIN / SCALING; Start 03/25/18 at 00:00; Stop 03/30/18 at 00:00; Status Cancel Oxycodone/ Acetaminophen (Percocet 5/325) 2 tab PRN DAILY PRN PO MODERATE PAIN Last administered on 03/25/18 03:50; Start 03/24/18 at 23:30 Oxycodone/ Acetaminophen (Percocet 5/325) 2 tab BID PO Last administered on at 12:25; Start 03/25/18 at 09:00; Stop 03/30/18 at 08:59 Oxymetazoline HCl (Afrin) 2 spray PRN BID PRN NS CONGESTION Last administered on 03/25/18 13:51; Start 03/24/18 at 23:30 Multi-Ingred Cream/Lotion/Oil/ Oint (Hydrocerin Cream) 1 ector PRN BID PRN TP DRY SKIN / SCALING; Start 03/25/18 at 03:00 Throat Lozenges (Chloraseptic) 1 spray PRN Q2HR PRN PO SORE THROAT Last administered on 03/25/18at 13:51; Start 03/25/18 at 11:45 Morphine Sulfate (Morphine Sulfate) 4 mg PRN Q2HR PRN IV PAIN Last administered on 03/27/18 06:05; Start 03/25/18 at 11:45; Stop 03/27/18 at 12:19 ; Status DC Potassium Chloride/Dextrose/ Sod Cl 1,000 ml @ 100 mls/hr Q10H IV Last administered on 03/27/18 04:30; Start 03/25/18 at 12:30; Stop 03/27/18 at 12:19 ; Status DC Prochlorperazine Edisylate (Compazine) 5 mg PACU PRN PRN IV NAUSEA, MRX1; Start 03/26/18 at 07:00; Stop 03/27/18 at 06:59; Status DC Hydromorphone HCl (Dilaudid) 0.5 mg PRN Q10MIN PRN IV SEV PAIN, Second choice; Start 03/26/18 at 07:00; Stop 03/27/18 at 06:59; Status DC Lidocaine HCl (Xylocaine-Mpf 1% 2ml Vial) 2 ml PRN 1X PRN ID IV START; Start at 07:00; Stop 03/27/18 at 06:59; Status DC Ringer's Solution 1,000 ml @ 30 mls/hr Q24H IV Last administered on 03/26/18at 14:10; Start 03/26/18 at 07:00; Stop 03/26/18 at 18:59; Status DC Morphine Sulfate (Morphine Sulfate) 1 mg PRN Q10MIN PRN IV SEVERE PAIN; Start 03/26/18 at 07:00; Stop 03/27/18 at 06:59; Status DC Fentanyl Citrate (Fentanyl 2ml Vial) 50 mcg PRN Q5MIN PRN IV MODERATE TO SEVERE PAIN; Start 03/26/18 at 07:00; Stop 03/27/18 at 06:59; Status DC Fentanyl Citrate (Fentanyl 2ml Vial) 25 mcg PRN Q5MIN PRN IV MILD PAIN; Start 03/26/18 at 07:00; Stop 03/27/18 at 06:59; Status DC Ondansetron HCl (Zofran) 4 mg PRN Q6HRS PRN IV NAUSEA/VOMITING; Start 03/26/18 at 07:00; Stop 03/27/18 at 06:59; Status DC Propofol 20 ml @ As Directed STK-MED ONCE IV ; Start 03/26/18 at 14:38; Stop at 14:39; Status DC Barium Sulfate (Liquid E-Z Paque) 355 ml 1X ONCE PO Last administered on at 09:15; Start 03/27/18 at 07:15; Stop 03/27/18 at 07:16; Status DC Barium Sulfate (E-Z-Hd) 340 gm 1X ONCE PO Last administered on 03/27/18at 09:15 ; Start 03/27/18 at 07:15; Stop 03/27/18 at 07:16; Status DC Simethicone/ Sodium Bicarb/ Citric Ac (E-Z-Gas) 1 packet 1X ONCE PO ; Start at 07:15; Stop 03/27/18 at 07:16; Status DC Pantoprazole Sodium (Protonix) 40 mg BIDAC PO ; Start 03/27/18 at 16:30 Morphine Sulfate (Morphine Sulfate) 6 mg PRN Q2HR PRN IV PAIN; Start 03/27/18 at 12:30 Amino Acids/ Glycerin/ Electrolytes 1,000 ml @ 80 mls/hr [id number] IV ; Start at 12:30 Active Scripts Active Reported Tylenol (Acetaminophen) 325 Mg Tablet 650 Mg PO Q6HRS PRN Miralax (Polyethylene Glycol 3350) 17 Gm Powd.pack 1 Packet PO DAILY Lipitor (Atorvastatin Calcium) 10 Mg Tablet 1 Tab PO QHS Cymbalta (Duloxetine Hcl) 30 Mg Capsule.dr 1 Cap PO DAILY Ativan (Lorazepam) 0.5 Mg Tablet 1 Mg PO Q4HRS PRN Percocet 5-325 Mg Tablet (Oxycodone/Acetaminophen) 1 Each Tablet 1 Tab PO BID FENTANYL 25mcg/hr (Fentanyl) 1 Each Patch.td72 1 Patch TD Q72H Aquaphor Ointment (Mineral Oil/Hydrophil Petrolat) 396 Gm Oint...g. 396 Gm TP BID Zofran Odt (Ondansetron) 4 Mg Tab.rapdis 1 Tab SL Q6HRS PRN Morphine Sulfate 20 Mg/5 Ml Solution 20 Mg PO 0.5CC HOURLY Percocet 5-325 Mg Tablet (Oxycodone/Acetaminophen) 1 Each Tablet 1 Tab PO DAILY PRN NITROGLYCERIN SubLingual (Nitroglycerin) 0.4 Mg Tab.subl 0.4 Mg SL PRN Q5MIN PRN Fluphenazine Hcl 5 Mg Tablet 2.5 Mg PO BID Dicyclomine Hcl 20 Mg Tablet 1 Tab PO TID Vitamin D3 (Cholecalciferol (Vitamin D3)) 1,000 Unit Tablet 1,000 Unit PO DAILY Vitamin B-1 (Thiamine Mononitrate) 100 Mg Tablet 100 Mg PO DAILY Trazodone Hcl 150 Mg Tablet 150 Mg PO HS Prozac (Fluoxetine Hcl) 40 Mg Capsule 80 Mg PO DAILY Lyrica (Pregabalin) 75 Mg Capsule 75 Mg PO BID Protonix (Pantoprazole Sodium) 40 Mg Tablet.dr 40 Mg PO DAILY Levothyroxine Sodium 25 Mcg Tablet 25 Mcg PO DAILYAC Ketoconazole 120 Ml Shampoo 1 Ector TP WEEKLY ON SUNDAY Fludrocortisone Acetate 0.1 Mg Tablet 0.1 Mg PO DAILY Ferrous Sulfate 325 Mg Tablet 325 Mg PO DAILY Baclofen 10 Mg Tablet 5 Mg PO TID Aspirin 81 Mg Tab.chew 81 Mg PO DAILY Vitals/I & O Vital Sign - Last 24 Hours 03/26/18 03/26/18 03/26/18 03/26/18 12:58 14:04 14:06 14:51 Temp 98.3 97.3 98.3 97.3 Pulse 53 49 Resp 16 16 B/P (MAP) 125/63 Pulse Ox 91 96 O2 Delivery Room Air Room Air Nasal Cannula O2 Flow Rate 2.0 6 03/26/18 03/26/18 03/26/18 03/26/18 15:03 15:14 15:45 16:19 Temp 96.9 96.9 Pulse 46 46 46 Resp 16 20 18 B/P (MAP) 140/65 125/64 100/67 (78) Pulse Ox 92 95 96 95 O2 Delivery Nasal Cannula Room Air Room Air Room Air O2 Flow Rate 2 03/26/18 03/26/18 03/26/18 03/26/18 18:48 19:00 20:00 20:32 Temp 97.9 97.9 Pulse 48 Resp 18 B/P (MAP) 147/69 (95) Pulse Ox 96 O2 Delivery Room Air Room Air Room Air Room Air 03/26/18 03/26/18 03/26/18 03/27/18 21:32 21:52 23:00 03:00 Temp 98.2 98.0 98.2 98.0 Pulse 50 48 Resp 18 18 B/P (MAP) 136/63 (87) 124/72 (89) Pulse Ox 92 92 O2 Delivery Room Air Room Air Room Air Room Air 03/27/18 03/27/18 03/27/18 03/27/18 06:05 07:00 07:00 08:00 Temp 98.2 98.2 Pulse 52 Resp 18 B/P (MAP) 125/77 (93) Pulse Ox 90 O2 Delivery Room Air Room Air Room Air Room Air 03/27/18 03/27/18 11:00 12:25 Temp 98.5 98.5 Pulse 93 Resp 18 B/P (MAP) 120/60 (80) Pulse Ox 88 O2 Delivery Room Air Room Air Intake and Output 03/26/18 03/26/18 03/27/18 15:00 23:00 07:00 Intake Total 2127 ml Output Total 300 ml 1000 ml Balance 1827 ml -1000 ml KEATON PERSAUD MD Mar 27, 2018 12:36
--- NOTE | 2018-03-27 13:18 | PDOC ---
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 He continues to complain of sever swallowing pain with throat feeling like it has razor blades in it. Not eating much and just feels lousy overall. Not doing anything is bed. No interest in reading or watching TV. EGD revealed reflux esophagitis bx taken and non-erosive gastritis. PE modest right neck lymph node <1 cm size. Impression : History of st III squamous cell carcinoma of rt tonsil good response to treatment. He lives in a fci. He has one sister living here and has no contact with her and no other family. He is a chronic NH resident and comfortable returning there. He may benefit with consideration of PEG tube placement. He currently is not interested in a PEG tube, He clearly has a combination of depression and/or an underlying psychiatric dx. Agree with palliative care consult. GI to aid in considering PEG tube. MILLER KEMP MD Mar 27, 2018 13:18
--- NOTE | 2018-03-27 14:49 | PDOC ---
Subjective: Subjective: Throat hurts after he eats. Objective: Objective: D/w Dr. Aleman - wonders about PEG placement, not eating. D/w Dr. Fletcher - psych issues complicate swallowing symptoms. When I saw, lunch tray empty except cake. Vital Signs: Vital Signs Date Time Temp Pulse Resp B/P (MAP) Pulse Ox O2 Delivery O2 Flow Rate FiO2 03/27/18 12:25 Room Air 03/27/18 11:00 98.5 93 18 120/60 (80) 88 98.5 03/26/18 15:03 2 Labs: Laboratory Tests Test 03/27/18 06:22 White Blood Count 3.0 x10^3/uL Red Blood Count 5.06 x10^6/uL Hemoglobin 10.4 g/dL Hematocrit 33.0 % Mean Corpuscular Volume 65 fL Mean Corpuscular Hemoglobin 21 pg Mean Corpuscular Hemoglobin Concent 32 g/dL Red Cell Distribution Width 19.7 % Platelet Count 142 x10^3/uL Neutrophils (%) (Auto) 56 % Lymphocytes (%) (Auto) 25 % Monocytes (%) (Auto) 11 % Eosinophils (%) (Auto) 7 % Basophils (%) (Auto) 1 % Neutrophils # (Auto) 1.7 x10^3uL Lymphocytes # (Auto) 0.8 x10^3/uL Monocytes # (Auto) 0.3 x10^3/uL Eosinophils # (Auto) 0.2 x10^3/uL Basophils # (Auto) 0.0 x10^3/uL Sodium Level 140 mmol/L Potassium Level 4.0 mmol/L Chloride Level 105 mmol/L Carbon Dioxide Level 29 mmol/L Anion Gap 6 Blood Urea Nitrogen 6 mg/dL Creatinine 0.8 mg/dL Estimated GFR (Cockcroft-Gault) 98.6 Glucose Level 98 mg/dL Calcium Level 8.6 mg/dL Imaging: Barium swallow IMPRESSION: 1. Decreased pharyngeal peristalsis with stasis of material in the hypopharynx and cervical esophagus. A videodysphasia evaluation may be helpful. 2. No obstructing esophageal lesion is identified. EGD reflux esophagitis s/po bx non-erosive gastritis PE: GEN: NAD LUNGS: CTAB HEART: RRR ABD: tender per usual NEURO/PSYCH: A & O 3, flat A/P: Odynophagia and dysphagia Psych issues -- Will review barium swallow w/ Dr. Mary. Continue PPI. He ate lunch today and tells me he never wants a feeding tube. Nephew present for discussion. JULIAN REGAN Mar 27, 2018 14:49
[2018-03-27 15:00] VITALS: BP 89/45
[2018-03-27] MEDS: PANTOPRAZOLE 40 MG TABLET.DR. PO SCH (18:22)
[2018-03-27 19:00] VITALS: BP 144/57
[2018-03-27] MEDS: traZODone 50 MG TABLET. PO SCH (20:46)
[2018-03-27] MEDS: ATORVASTATIN CALCIUM 10 MG TABLET. PO SCH (20:47)
[2018-03-27 23:00] VITALS: BP 140/60
[2018-03-28 03:00] VITALS: BP 137/56
[2018-03-28] MEDS: LEVOTHYROXINE 25 MCG TABLET. PO SCH (05:43)
[2018-03-28] MEDS: PANTOPRAZOLE 40 MG TABLET.DR. PO SCH (05:43)
[2018-03-28 06:52] LABS: BASO % 1 % (0-3); EOS # 0.2 x10^3/uL (0.0-0.7); EOS % 8 % (0-3); HEMATOCRIT 34.2 % (39.0-53.0); HEMOGLOBIN 10.8 g/dL (13.0-17.5); LYMPH # 0.8 x10^3/uL (1.0-4.8); LYMPH % 31 % (24-48); MEAN CORPUSCULAR HEMOGLOBIN 21 pg (25-35); MEAN CORPUSCULAR HGB CONC 32 g/dL (31-37); MEAN CORPUSCULAR VOLUME 65 fL (79-100); MONO # 0.4 x10^3/uL (0.0-1.1); MONO % 13 % (0-9); NEUT # 1.3 x10^3uL (1.8-7.7); NEUT % 47 % (31-73); PLATELET COUNT 152 x10^3/uL (140-400); RED BLOOD COUNT 5.28 x10^6/uL (4.30-5.70); RED CELL DISTRIBUTION WIDTH 19.9 % (11.5-14.5); WHITE BLOOD COUNT 2.7 x10^3/uL (4.0-11.0)
[2018-03-28 07:00] VITALS: BP 106/48
[2018-03-28 07:14] LABS: CALCIUM 9.1 mg/dL (8.5-10.1); CREATININE 0.8 mg/dL (0.7-1.3); GFR 98.6; POTASSIUM 3.8 mmol/L (3.5-5.1)
[2018-03-28] MEDS ORDERED: OXYC-323 PO (08:29)
[2018-03-28] MEDS: PREGABALIN 75 MG CAPSULE PO SCH (08:53)
[2018-03-28] MEDS: BACLOFEN 10 MG TABLET. PO SCH (08:53)
[2018-03-28] MEDS: DICYCLOMINE HCL 10 MG CAPSULE PO SCH (08:53)
[2018-03-28] MEDS: FLUPHENAZINE HCL 2.5 MG TABLET. PO SCH (08:53)
[2018-03-28] MEDS: FLUoxetine HCL 20 MG CAPSULE PO SCH (08:53)
[2018-03-28] MEDS: FLUDROCORTISONE 0.1 MG TABLET PO SCH (08:53)
[2018-03-28] MEDS: POLYETHYLENE GLYCOL 3350 17 GM PACKET. PO SCH (08:53)
[2018-03-28] MEDS: FERROUS SULFATE 325 MG TABLET. PO SCH (08:53)
[2018-03-28] MEDS: CHOLECALCIFEROL (VITAMIN D3) 1,000 UNIT TABLET PO SCH (08:54)
[2018-03-28] MEDS: DULoxetine HCL 30 MG CAPSULE.DR PO SCH (08:54)
[2018-03-28] MEDS: oxyCODONE/APAP 5/325 1 TAB TABLET PO SCH (08:54)
[2018-03-28] MEDS: THIAMINE 100 MG TABLET. PO SCH (08:54)
--- NOTE | 2018-03-28 10:49 | PDOC2 ---
PALLIATIVE CARE Palliative Care Note Palliative Care Consult requested by Dr. Aleman to address pain and depression secondary to medical condition/Tonsillar Cancer Patient well known to PC from previous admission. Awaked patient ----drowsy. Rates throat pain at 9. Patient fell back asleep when asked if medication was effective. 10 sec. period of apnea. Patient is on antidepressant. Attempted to reach [facility] to discuss care. Awaiting return call. Plan Discharge today per notes. Discussed with GRADY Hoang Mar 28, 2018 10:48
[2018-03-28 11:00] VITALS: BP 143/73
--- NOTE | 2018-03-28 12:36 | PDOC ---
Subjective: Subjective: Throat hurts. Objective: Objective: Reviewed PC note - period of apnea. DC? Vital Signs: Vital Signs Date Time Temp Pulse Resp B/P (MAP) Pulse Ox O2 Delivery O2 Flow Rate FiO2 03/28/18 08:54 Room Air 03/28/18 07:00 97.8 55 18 106/48 (67) 97 97.8 PE: GEN: sitting on edge of bed asleep, lunch tray 75% eaten LUNGS: room air NEURO/PSYCH: flat A/P: Odynophagia and dysphagia -- Eating, declines PEG. Disposition plans per primary. JULIAN REGAN Mar 28, 2018 12:36
--- NOTE | 2018-03-29 16:08 | PATHOLOGY ---
[facility] Accession Number: [id number] . 01 Material submitted: . DISTAL ESOPHAGUS . 01 Clinical history: . Abdominal pain, esophagus pain . 02 Diagnosis: Esophageal biopsies, distal esophagus: - Segments of hyperplastic squamous esophageal mucosa consistent with reflux esophagitis. [facility]/03/29/2018 . 02 Comment: There is no evidence of Rivera's change, dysplasia, or malignancy. (JPM:[facility] 03/29/2018) . 02 Electronically signed: . Wili Huitron MD, Pathologist NPI- [id number] . 01 Gross description: . Received in formalin labeled "Roseline, Zeb, distal esophagus," are 3 segments of hernandez soft tissue measuring 1.1 x 0.6 x 0.2 cm in aggregate dimensions and ranging from 0.4 to 0.5 cm in maximum dimension. The specimen is submitted entirely in cassette A1. ([facility]; 03/27/2018) TOB/TOB . 02 Pathologist provided ICD-10: K21.0 . 02 CPT . 934433 Performed at: [facility] [address] [facility] [address], [place] [id number] MD Aaron Sheldon MD Phone: [phone] [facility]formed at: [facility] [address] [place], [place] [id number] MD Wili Huitron MD Phone: [phone]
== END 2018-03-28 14:00 | DRG 391 ==
LOC: ER 19:48 → 4 NORTH 21:18
PROVIDERS: ADMIT Family Medicine; ATTEND Family Medicine
PROC: 0DB18ZX Excision of Upper Esophagus, Via Natural or Artificial Opening Endoscopic, Diagnostic (ICD-10-PCS; principal; 2018-03-27)
DX: K22.8 Other specified diseases of esophagus (principal); E43 Unspecified severe protein-calorie malnutrition; R64 Cachexia; K21.0 Gastro-esophageal reflux disease with esophagitis; C09.9 Malignant neoplasm of tonsil, unspecified; R13.10 Dysphagia, unspecified; C14.0 Malignant neoplasm of pharynx, unspecified; D63.0 Anemia in neoplastic disease; E03.9 Hypothyroidism, unspecified; E11.9 Type 2 diabetes mellitus without complications; F32.9 Major depressive disorder, single episode, unspecified; G20 Parkinson's disease; G89.29 Other chronic pain; I10 Essential (primary) hypertension; D64.9 Anemia, unspecified; K29.70 Gastritis, unspecified, without bleeding; K40.90 Unilateral inguinal hernia, without obstruction or gangrene, not specified as recurrent; K57.90 Diverticulosis of intestine, part unspecified, without perforation or abscess without bleeding; K58.9 Irritable bowel syndrome, unspecified; N20.0 Calculus of kidney; Y84.2 Radiological procedure and radiotherapy as the cause of abnormal reaction of the patient, or of later complication, without mention of misadventure at the time of the procedure; Z82.49 Family history of ischemic heart disease and other diseases of the circulatory system; Z85.118 Personal history of other malignant neoplasm of bronchus and lung; Z85.818 Personal history of malignant neoplasm of other sites of lip, oral cavity, and pharynx; Z92.3 Personal history of irradiation
CPT/HCPCS: 36415; 74176; 74220; 80048; 80053; 80076; 85025; 87641; 88305; 94640; 94760; 96374; 96375; J2270; J2405; J2704; J3010; J7030; J7120; J7620; 99285-25

== ENCOUNTER → 2020-05-28 | Outpatient (CLI) | payer MEDICARE, MEDICAID ==
[2018-04-05 11:00] VITALS: BP 130/75
[~2020-05-28] MED LIST changes: +BUPR150T15 PO; +CONTRAST GIVEN. MC PRN; +FENT1PAT17 TD; -FLUP5TAB PO; +FLUP5TAB3 PO; +HYDR-3135 PO; -HYDR-963 PO; +IOHEXOL 300 MG/ML 100ML VIAL. IV ONE; -KETO120S TP; +KETO120S4 TP; +LORA1TAB PO; -MELA3TAB2 PO; +MELA3TAB4 PO; -OXYC-323 PO; -OXYC-327 PO; +OXYC1TAB15 PO; +OXYC1TAB19 PO; -PANT40TA3 PO; +PANT40TA77 PO; +PREG-9 PO; -PREG75CA PO
[2020-05-28 13:58] LABS: CREATININE 0.9 mg/dL (0.7-1.3); GFR 85.5
--- NOTE | 2020-05-28 16:37 | RAD ---
CT study soft tissues of the neck with contrast Clinical indications: Status post radiation therapy. History of lung cancer and esophageal cancer. TECHNIQUE: After IV infusion of 70 cc of Omnipaque 300, helical CT scanning of the soft tissues of the neck from the base of skull down through the lung apices was performed. PQRS compliance Statement One or more of the following individualized dose reduction techniques were utilized for this study: 1. Automated exposure control 2. Adjustment of the mA and/or kV according to patient size 3. Use of iterative reconstruction technique COMPARISON: None available. FINDINGS: No enlarged cervical lymphadenopathy is evident. No soft tissue mass or abscess evident. No parapharyngeal or submucosal soft tissue thickening or mass is evident. No abnormal enlargement of the palatine tonsils or adenoids or sublingual tonsils or base of tongue is seen. The parotid and submandibular salivary glands are unremarkable. No thyroid gland mass is seen. The true cords and false cords and epiglottis and aryepiglottic folds and preepiglottic fat space are unremarkable. No lung apical infiltrate is evident. No lytic process is seen. IMPRESSION: Unremarkable study. Electronically signed by: Haider Obregon MD (05/28/2020 4:34 PM) [id number]
== END ==
LOC: CT 13:13
PROVIDERS: ATTEND Radiology Radiation Oncology
DX: C09.9 Malignant neoplasm of tonsil, unspecified (principal); Z85.118 Personal history of other malignant neoplasm of bronchus and lung; Z85.01 Personal history of malignant neoplasm of esophagus
CPT/HCPCS: 36415; 70491; 82565; 84520; Q9967